=== PATIENT | male | born 1955 | race Caucasian/White ===

== ENCOUNTER 2016-06-25 15:23 | Emergency (ER) | payer OTHER ==
[2016-06-25 15:42] VITALS: TEMP 98.7
[2016-06-25] MEDS ORDERED: hydrALAZINE HCL 20 MG/ML 1 ML VIAL IVP STA (15:52)
--- NOTE | 2016-06-25 15:57 | ED ---
General Adult HPI - General Chief complaint: Recheck/Abnormal Lab/Rx Stated complaint: IHS/Poss HBP Time Seen by Provider: 06/25/16 15:44 Source: patient, RN notes reviewed Mode of arrival: ambulatory Limitations: no limitations - History of Present Illness Initial comments: Chief complaint and history of present illness a 60-year-old male who was sent here by the clinic doctor because of elevated blood pressure. The patient was being seen for left inguinal hernia which is been developed over the past week. Is also noted the patient's blood pressure was elevated upon arrival was 2 05/2008. Patient denies ever having had blood pressure problems before denies having significant symptoms. When pressed he said maybe a little nauseated today but he thought that was due to the discomfort of the developing left inguinal hernia. - Related Data Previous Rx's Medication Instructions Recorded Lisinopril [Zestril] 10 mg PO DAILY #75 tab 06/25/16 Allergies Allergy/AdvReac Type Severity Reaction Status Date / Time No Known Allergies Allergy Verified 06/25/16 16:03 Review of Systems ROS Statement: Those systems with pertinent positive or pertinent negative responses have been documented in the HPI. Review of systems. No visual acuity changes or headache no scalp tightness. No neck ache no chest pain no palpitations no shortness of breath no abdominal pain no flank pain. No neuro deficits. All systems are reviewed. Past medical problems none noted. Surgeries right inguinal hernia repair. Family history no cancer. Patient denies ALLERGIES. He does smoke strongly encouraged stop he does drink 5-6 beers per day. ROS Other: All systems not noted in ROS Statement are negative. Past Medical History Past Medical History: No Reported History Additional Past Medical History / Comment(s): Vision impairment (R) eye. History of Any Multi-Drug Resistant Organisms: None Reported Past Surgical History: Hernia Repair Past Psychological History: No Psychological Hx Reported Smoking Status: Current every day smoker Past Alcohol Use History: Daily Past Drug Use History: None Reported General Exam - General Exam Comments Initial Comments: General: The patient is awake and alert, in no distress, and does not appear acutely ill. Here because of elevated blood pressure. Vital signs show temp 98.7 pulse 105 respiratory rate on chart 97 count it at bedside 18. blood pressure 218/109. Pulse ox 96% room air Eye: Pupils are equal, round and reactive to light, extra-ocular movements are intact ; there is normal conjunctiva bilaterally. No signs of icterus. Patient does have arcus senilis Ears, nose, mouth and throat: There are moist mucous membranes and no oral lesions. Generally poor dentition. Neck: The neck is supple, there is no tenderness , no anterior cervical lymphadenopathy. Cardiovascular: And tachycardic heart rate on admission 105.. No murmur, rub or gallop is appreciated. No complaint of pain or palpitations. Respiratory: Lungs are clear to auscultation, respirations are non-labored, breath sounds are equal. No wheezes, stridor, rales, or rhonchi. Gastrointestinal: Soft, non-distended, non-tender abdomen without masses or organomegaly noted. There is no rebound or guarding present. No CVA tenderness. No nausea no vomiting no diarrhea. Left lower quadrant discomfort left inguinal hernia diagnosed in the clinic. Patient is being referred on to general surgery. Back: There is no tenderness to palpation in the midline. There is no obvious deformity. No rashes noted. Musculoskeletal: Normal ROM, no tenderness, There is no pedal edema. There is no calf tenderness or swelling. Sensation intact. Pulses equal bilaterally 2+. Neurological: CN II-XII intact, There are no obvious motor or sensory deficits. Coordination appears grossly intact. Speech is normal. No focal or lateralizing findings. No balance problems. Skin: Skin is warm and dry and no rashes or lesions are noted. Limitations: no limitations Course Vital Signs 06/25/16 06/25/16 06/25/16 15:35 15:47 16:30 Temperature 98.7 F Pulse Rate 105 H Respiratory 97 H Rate Blood Pressure 211/109 219/117 172/79 O2 Sat by Pulse 96 Oximetry 06/25/16 16:50 Temperature Pulse Rate 96 Respiratory 18 Rate Blood Pressure 157/70 O2 Sat by Pulse 97 Oximetry Medical Decision Making - Medical Decision Making Medical decision making; patient's elevated blood pressure was treated with hydralazine 20 mg IV push. Blood pressure checks and rechecks were done consistently came down every 10 minutes. At this time the patient's blood pressures proximal 150/80. The patient will be placed on lisinopril 10 mg one per day. Advised to follow-up with the family physician is being referred to today. He was advised that he may well need another medication or more the same medication. Advised to return emergency room if is any symptoms. We did discuss the risks of high blood pressure. Disposition Clinical Impression: Hypertension Disposition: HOME SELF-CARE Condition: Fair Instructions: Hypertension (ED) Additional Instructions: Take lisinopril 10 mg one per day. Get blood pressure rechecked several times this week. Follow-up with Dr. Trinidad in the next 1-2 weeks. Return emergency room as needed Prescriptions: Lisinopril [Zestril] 10 mg PO DAILY #75 tab Referrals: None,Stated [Primary Care Provider] - 1-2 days Teo Trinidad MD [REFERRING] - 1-2 days Time of Disposition: 16:55
[2016-06-25] MEDS ORDERED: SODIUM CHLORIDE 0.9% 1,000 ML IV SCH (16:00)
[2016-06-25 16:51] VITALS: RESP 18
[2016-06-25] MEDS ORDERED: LORazepam 2 MG/ML SYRINGE IV STA (17:10)
[2016-06-25 17:22] LABS: Basophils % (A) 0 %; CHCM 32.2; Eosinophils # (A) 0.1 k/uL (0-0.7); Eosinophils % (A) 1 %; HCT 50.1 % (39.0-53.0); HGB 15.2 gm/dL (13.0-17.5); Luc % (Auto) 1; Lymphocytes # (A) 1.8 k/uL (1.0-4.8); Lymphocytes % (A) 22 %; MCH 27.5 pg (25.0-35.0); MCHC 30.3 g/dL (31.0-37.0); MCV 90.7 fL (80.0-100.0); Mean Platelet Volume 7.4; Monocytes # (A) 0.5 k/uL (0-1.0); Monocytes % (A) 6 %; Neutrophils # (A) 5.6 k/uL (1.3-7.7); Neutrophils % (A) 69 %; RBC 5.53 m/uL (4.30-5.90); RDW 13.7 % (11.5-15.5); WBC 8.1 k/uL (3.8-10.6); WBC (Perox) 7.79
[2016-06-25 17:32] LABS: ALT 39 U/L (21-72); AST 30 U/L (17-59); Alkaline Phosphatase 94 U/L (38-126); Anion Gap 13 mmol/L; Blood Urea Nitrogen 14 mg/dL (9-20); Calcium 9.9 mg/dL (8.4-10.2); Carbon Dioxide 25 mmol/L (22-30); Chloride 104 mmol/L (98-107); Glucose 97 mg/dL (74-99); Non-African American GFR(MDRD) >60 (>60 ml/min/1.73 sqM); Potassium 4.5 mmol/L (3.5-5.1); Sodium 142 mmol/L (137-145); Total Bilirubin 0.7 mg/dL (0.2-1.3); Total Protein 8.2 g/dL (6.3-8.2)
[2016-06-25 17:35] LABS: Creatine Kinase 82 U/L (55-170)
[2016-06-25 17:48] LABS: Creatine Kinase MB 1.1 ng/mL (0.0-2.4); Troponin I <0.012 ng/mL (0.000-0.034)
[2016-06-25] MEDS ORDERED: ENALAPRILAT 1.25 MG/ML 1 ML VIAL IVP STA (18:27)
[2016-06-25 19:00] VITALS: BP 164/77; PULSE 94
== END 2016-06-25 20:19 | disposition home or self-care (01) ==
LOC: EC 15:23
DX: I10 Essential (primary) hypertension (principal); F17.200 Nicotine dependence, unspecified, uncomplicated
CPT/HCPCS: 36415; 80053; 82550; 82553; 84484; 85025; 96374; 96375; 99283; J2060; J0360; 93005

== ENCOUNTER 2016-10-01 13:48 | Inpatient (IN) | payer BC ==
[2016-10-01] MEDS ORDERED: NITROGLYCERIN OINT 1 INCH/GM PACKET TOPICAL STA (14:05)
[2016-10-01] MEDS ORDERED: ASPIRIN 81 MG CHEW PO STA (14:05)
[2016-10-01] MEDS ORDERED: IPRATROPIUM-ALBUTEROL 3 ML NEB INHALATION STA (14:08)
[2016-10-01 14:26] LABS: Basophils % (A) 0 %; CH 28.5; Eosinophils # (A) 0.3 k/uL (0-0.7); Eosinophils % (A) 3 %; HCT 41.6 % (39.0-53.0); HDW 2.37; HGB 13.1 gm/dL (13.0-17.5); Luc # (Auto) 0.22; Luc % (Auto) 2; Lymphocytes # (A) 1.9 k/uL (1.0-4.8); Lymphocytes % (A) 17 %; MCH 28.2 pg (25.0-35.0); MCHC 31.5 g/dL (31.0-37.0); MCV 89.6 fL (80.0-100.0); Mean Platelet Volume 6.2; Monocytes # (A) 0.8 k/uL (0-1.0); Monocytes % (A) 7 %; Neutrophils # (A) 8.3 k/uL (1.3-7.7); Neutrophils % (A) 72 %; RBC 4.65 m/uL (4.30-5.90); RDW 13.7 % (11.5-15.5); WBC 11.6 k/uL (3.8-10.6); WBC (Perox) 11.45
[2016-10-01 14:34] LABS: ALT 23 U/L (21-72); AST 20 U/L (17-59); Alkaline Phosphatase 92 U/L (38-126); Amylase 85 U/L (30-110); Anion Gap 9 mmol/L; Blood Urea Nitrogen 23 mg/dL (9-20); Calcium 9.3 mg/dL (8.4-10.2); Carbon Dioxide 24 mmol/L (22-30); Chloride 107 mmol/L (98-107); Glucose 105 mg/dL (74-99); Magnesium 2.3 mg/dL (1.6-2.3); Non-African American GFR(MDRD) >60 (>60 ml/min/1.73 sqM); Potassium 4.6 mmol/L (3.5-5.1); Sodium 140 mmol/L (137-145); Total Bilirubin 0.3 mg/dL (0.2-1.3); Total Protein 6.7 g/dL (6.3-8.2)
[2016-10-01 14:37] LABS: INR 0.9 (<1.1); Partial Thromboplastin Time 25.5 sec (22.0-30.0); Prothrombin Time 9.6 sec (9.0-12.0)
[2016-10-01 14:51] LABS: Creatine Kinase 26 U/L (55-170)
--- NOTE | 2016-10-01 14:52 | ED ---
Chest Pain HPI - General Chief Complaint: Chest Pain Stated Complaint: Chest Pain Time Seen by Provider: 10/01/16 13:54 Source: patient, family, RN notes reviewed, old records reviewed Mode of arrival: wheelchair Limitations: no limitations - History of Present Illness Initial Comments: This is a 60-year-old male who presents with complaints of sharp left-sided chest pain it sometimes goes to his left arm shortness of breath dyspnea somewhat better with rest he also states he hasn't fevers chills sweats occasional cough but no definite phlegm production. Of note he did have a left herniorrhaphy done on September 22. He denies any leg edema or pain other than occasionally the pain in his left chest seems to radiate down to his left leg. States the pain right now is very mild is no worse than moderate. He is a smoker but denies any history of lung disease or heart disease he states he did have a recent full workup before the hernia surgeries including echocardiogram and stress test which apparently turned out fine. No other complaints at this time MD Complaint: chest pain, other - Related Data Home Medications Medication Instructions Recorded Confirmed Aspirin 325 mg PO ONCE PRN 10/01/16 10/01/16 amLODIPine BESYLATE/BENAZEPRIL 1 cap PO BID 10/01/16 10/01/16 [Lotrel 5-20 mg Capsule] Allergies Allergy/AdvReac Type Severity Reaction Status Date / Time No Known Allergies Allergy Verified 10/01/16 14:15 Review of Systems ROS Statement: Those systems with pertinent positive or pertinent negative responses have been documented in the HPI. ROS Other: All systems not noted in ROS Statement are negative. EKG Findings - EKG Results: EKG: interpreted by FREDERIC, sinus rhythm (Heart rate 114 WA interval 136 QRS duration 94 daily since QTC of 332/457 possible left atrial enlargement no acute ST-T wave changes) Past Medical History Past Medical History: No Reported History Additional Past Medical History / Comment(s): Vision impairment (R) eye. History of Any Multi-Drug Resistant Organisms: None Reported Past Surgical History: Hernia Repair Past Psychological History: No Psychological Hx Reported Smoking Status: Current every day smoker Past Alcohol Use History: Daily Past Drug Use History: None Reported General Exam - General Exam Comments Initial Comments: Is a well-developed well-nourished awake alert oriented x3 male Limitations: no limitations General appearance: alert, in no apparent distress Head exam: Present: atraumatic, normocephalic, normal inspection Eye exam: Present: normal appearance, PERRL, EOMI. Absent: scleral icterus, conjunctival injection, periorbital swelling ENT exam: Present: normal exam, mucous membranes moist Neck exam: Present: normal inspection. Absent: tenderness, meningismus, lymphadenopathy Respiratory exam: Present: wheezes, chest wall tenderness, decreased breath sounds. Absent: respiratory distress, rales, rhonchi, stridor Cardiovascular Exam: Present: normal rhythm, tachycardia, normal heart sounds. Absent: systolic murmur, diastolic murmur, rubs, gallop, clicks GI/Abdominal exam: Present: soft, normal bowel sounds. Absent: distended, tenderness, guarding, rebound, rigid Extremities exam: Present: normal inspection, full ROM, normal capillary refill. Absent: tenderness, pedal edema, joint swelling, calf tenderness Back exam: Present: normal inspection Neurological exam: Present: alert, oriented X3, CN II-XII intact Psychiatric exam: Present: normal affect, normal mood Skin exam: Present: warm, dry, intact, normal color. Absent: rash Course Vital Signs 10/01/16 10/01/16 10/01/16 14:04 14:27 14:37 Temperature 97.9 F Pulse Rate 113 H 104 H 107 H Respiratory 18 Rate Blood Pressure 155/73 O2 Sat by Pulse Oximetry 10/01/16 10/01/16 14:41 15:18 Temperature Pulse Rate 100 93 Respiratory 16 18 Rate Blood Pressure 146/95 118/69 O2 Sat by Pulse 96 98 Oximetry - Reevaluation(s) Reevaluation #1: 10/01/16 16:17 Patient did get some relief but he is still having left-sided chest pain. CAT scan results were pending he did demonstrate elevated d-dimer. Reevaluation #2: 10/01/16 16:19 I did discuss findings with patient and his . Patient be admitted he does have pulmonary embolism with prominent mediastinal lymph nodes. I did discuss case with Dr. Hameed. Pulmonary medicine will be consulted. 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 Critical Care Time Critical Care Time: Yes Critical Care Time: 36 minutes of critical care time which includes initial monitoring of the patient with history physical lab and x-rays reevaluation the patient response to therapy. Discussion with the patient and family members regarding the findings. Discussion with the admitting physician and admission orders and documentation the above. Disposition Clinical Impression: Pulmonary embolism on left, Atypical chest pain, Acute bronchospasm Disposition: ADMITTED IP TO THIS HOSP Condition: Stable
[2016-10-01 15:03] LABS: Creatine Kinase MB 0.5 ng/mL (0.0-2.4); Troponin I <0.012 ng/mL (0.000-0.034)
[2016-10-01] MEDS ORDERED: RX INFO: IV CONTRAST WAS GIVEN 1 EACH MISC MISCELLANE PRN (15:19)
--- NOTE | 2016-10-01 15:23 | XR ---
EXAMINATION TYPE: XR chest 2V DATE OF EXAM: 10/01/2016 3:14 PM COMPARISON: NONE HISTORY: Chest pain and shortness of breath TECHNIQUE: Frontal and lateral views of the chest are obtained. FINDINGS: There is slight blunting of left costophrenic angle. There is no gross heart failure. Hear t size is normal. Mediastinum is normal. There are chest leads. IMPRESSION: There is mild infiltrate and pleural reaction at the left lung base. Normal heart. No gr oss heart failure.
--- NOTE | 2016-10-01 16:04 | CT ---
EXAMINATION TYPE: CT chest angio for PE DATE OF EXAM: 10/01/2016 3:52 PM COMPARISON: NONE HISTORY: chest pain, sob CT DLP: 149.5 mGycm Automated exposure control for dose reduction was used. CONTRAST: CT Chest for pulmonary embolism performed with with IV Contrast, patient injected with 100 mL of Omni paque 350. There are 3-D post processed images. FINDINGS: There is diffuse pulmonary emphysema. There is no evidence of a pulmonary mass. There is small left p leural effusion and infiltrate and atelectasis at the left lung base. There similar mild infiltrate a nd atelectasis at the right lung base. There is no pericardial effusion. There are no hilar masses. T here is evidence of filling defect in the left lower lobe pulmonary artery lateral basal segment bran ch. There are a few mediastinal lymph nodes that measure up to almost 2 cm. There is no evidence of a ortic aneurysm or dissection. IMPRESSION: There is evidence of left lower lobe pulmonary embolism. Patchy infiltrate and atelectasis at the lung bases and worse on the left side. Small left pleural ef fusion. Mild mediastinal adenopathy. This exam was discussed with Dr. Ayala at 4:00 PM.
[2016-10-01] MEDS ORDERED: HEPARIN SODIUM,PORCINE 5,000 UNIT/ML 1 ML VIAL IV STA ×2 (16:09→16:17)
[2016-10-01] MEDS ORDERED: HYDROmorphone 1 MG/ML 1 ML SYRINGE IVP STA (16:09)
[2016-10-01] MEDS ORDERED: NALOXONE 0.4 MG/ML 1 ML VIAL IV PRN (16:20)
[2016-10-01] MEDS ORDERED: ASPIRIN 325 MG TAB PO PRN (16:24)
[2016-10-01] MEDS: HEPARIN SODIUM,PORCINE/D5W PMX 25,000 UNIT in DEXTROSE/WATER 1 500ML.BAG IV SCH (16:33)
[2016-10-01] MEDS: SODIUM CHLORIDE 0.9% 1,000 ML IV SCH (16:36)
[2016-10-01] MEDS ORDERED: MORPHINE SULFATE 4 MG/ML SYRINGE IVP STA (17:41)
[2016-10-01] MEDS: HYDROmorphone 1 MG/ML 1 ML SYRINGE IV PRN ×2 (19:59→23:27)
[2016-10-01] MEDS: amLODIPine 5 MG TAB PO SCH (20:00)
[2016-10-01 20:21] VITALS: BMI 21.2
[2016-10-01] MEDS: IPRATROPIUM-ALBUTEROL 3 ML NEB INHALATION SCH (21:49)
[2016-10-01] MEDS ORDERED: LORazepam 1 MG TAB PO PRN (22:57)
[2016-10-01] MEDS ORDERED: TEMAZEPAM 15 MG CAP PO PRN (22:58)
[2016-10-01] MEDS: ALPRAZolam 0.25 MG TAB PO PRN (23:27)
[2016-10-02] MEDS: IPRATROPIUM-ALBUTEROL 3 ML NEB INHALATION SCH ×7 (03:30→23:01)
[2016-10-02] MEDS: HYDROmorphone 1 MG/ML 1 ML SYRINGE IV PRN ×3 (03:42→12:52)
[2016-10-02 06:17] LABS: Basophils % (A) 0 %; CH 28.2; CHCM 31.7; Eosinophils # (A) 0.2 k/uL (0-0.7); Eosinophils % (A) 2 %; HCT 35.3 % (39.0-53.0); HDW 2.42; HGB 11.1 gm/dL (13.0-17.5); Luc # (Auto) 0.15; Luc % (Auto) 1; Lymphocytes # (A) 1.3 k/uL (1.0-4.8); Lymphocytes % (A) 12 %; MCH 28.1 pg (25.0-35.0); MCHC 31.4 g/dL (31.0-37.0); MCV 89.4 fL (80.0-100.0); Mean Platelet Volume 6.9; Monocytes # (A) 0.8 k/uL (0-1.0); Monocytes % (A) 8 %; Neutrophils # (A) 8.1 k/uL (1.3-7.7); Neutrophils % (A) 77 %; RBC 3.95 m/uL (4.30-5.90); RDW 13.7 % (11.5-15.5); WBC 10.5 k/uL (3.8-10.6); WBC (Perox) 10.86
[2016-10-02] MEDS: SODIUM CHLORIDE 0.9% 1,000 ML IV SCH ×2 (06:24→17:43)
[2016-10-02 06:28] LABS: Anion Gap 7 mmol/L; Blood Urea Nitrogen 16 mg/dL (9-20); Calcium 8.7 mg/dL (8.4-10.2); Carbon Dioxide 22 mmol/L (22-30); Chloride 106 mmol/L (98-107); Glucose 93 mg/dL (74-99); Non-African American GFR(MDRD) >60 (>60 ml/min/1.73 sqM); Potassium 4.5 mmol/L (3.5-5.1); Sodium 135 mmol/L (137-145)
[2016-10-02] MEDS: LISINOPRIL 20 MG TAB PO SCH (09:10)
[2016-10-02] MEDS: amLODIPine 5 MG TAB PO SCH ×2 (09:11→21:50)
[2016-10-02] MEDS: NICOTINE 21MG/24HR PATCH TRANSDERM SCH (09:11)
[2016-10-02] MEDS: ALPRAZolam 0.25 MG TAB PO PRN ×2 (09:20→17:44)
[2016-10-02] MEDS: HYDROcodone/APAP 5-325MG 1 EACH TAB PO PRN ×3 (09:20→22:46)
--- NOTE | 2016-10-02 11:50 | US ---
EXAMINATION TYPE: US venous doppler duplex LE DATE OF EXAM: 10/02/2016 10:41 AM COMPARISON: NONE CLINICAL HISTORY: 60-year-old male rule out DVT. SIDE PERFORMED: Bilateral TECHNIQUE: The lower extremity deep venous system is examined utilizing real time linear array sonog frieda with graded compression, doppler sonography and color-flow sonography. FINDINGS: VESSELS IMAGED: External Iliac Vein (EIV) Common Femoral Vein Deep Femoral Vein Greater Saphenous Vein * Femoral Vein Popliteal Vein Small Saphenous Vein * Proximal Calf Veins (* superficial vessels) Right Leg: Negative for DVT Left Leg: Negative for DVT. However, at the CFV/GSV junction there is thrombus in the GSV without ap preciable flow here. IMPRESSION: 1. No evidence for DVT within the bilateral lower extremities imaged from the groin to the upper calv es. 2. However, the exam is positive for SVT in the upper left greater saphenous vein near its junction w ith the common femoral vein.
[2016-10-02] MEDS: HEPARIN SODIUM,PORCINE/D5W PMX 25,000 UNIT in DEXTROSE/WATER 1 500ML.BAG IV SCH (12:48)
[2016-10-02] MEDS: MULTIVITAMINS, THERA 1 EACH TAB PO SCH (12:50)
--- NOTE | 2016-10-02 13:36 | HP ---
DATE OF ADMISSION: CHIEF COMPLAINT: Shortness of breath as well as left-sided chest pain. HISTORY OF PRESENT ILLNESS: This 60-year-old gentleman with past medical history of hypertension, history of deep venous thrombosis, history of nicotine dependence, being followed Dr. Trinidad in the outpatient setting has significant history of EtOH also. The patient apparently had a recent hernia surgery on 23 and [place] as outpatient about a week ago. Currently the patient is complaining of shortness of breath of 2 days duration with left side chest pain, which increases with respirations, but not completely relieved in between. The patient came to [facility] and admitted for further evaluation and treatment. Further evaluation showed WBC 11.9, d-dimer was elevated to 2.61 and the patient also had CTA done, which showed left lower lobe, pulmonary embolism. Patient admitted for further evaluation and treatment. There is no history of fever, rigors. No history of headache, loss of consciousness or seizures. PAST MEDICAL HISTORY: History of hypertension, history of degenerative joint disease, history of nicotine dependence. Medications prior to admission include: 1. Norvasc. 2. Lotrel 5/20 p.o. b.i.d. 3. Aspirin 325 mg p.r.n. ALLERGIES: None. FAMILY HISTORY: History of extensive history of DVT in both parent, both brothers, and sisters and close relatives. Also history of myocardial infarction in the family. 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 REVIEW OF SYSTEMS: ENT: Diminished hearing, diminished vision. CARDIOVASCULAR: As mentioned earlier. RESPIRATORY: As mentioned earlier. GI: No nausea. : No dysuria. NERVOUS SYSTEM: No numbness or weakness. ALLERGY/IMMUNOLOGY: No asthma or hayfever. MUSCULOSKELETAL: As mentioned earlier. HEMATOLOGY: As mentioned earlier. ENDOCRINE: No history of diabetes or hypothyroidism. CONSTITUTIONAL: As mentioned earlier. DERMATOLOGY: Negative. RHEUMATOLOGY: Negative. PSYCHIATRY: As mentioned earlier. PHYSICAL EXAMINATION: Patient is alert and oriented x3. Pulse 96, blood pressure 140/75, respirations 17, temperature 97.3, pulse ox 97% on room air. HEENT: Conjunctivae normal. Oral mucosa moist. NECK: No jugular venous distention. No carotid bruit. No lymph node enlargement. CARDIOVASCULAR SYSTEM: S1, S2 muffled. No S3, no S4. RESPIRATORY: Breath sounds diminished at the bases. A few rhonchi, no crackles. ABDOMEN: Soft, nontender. No mass palpable. LEGS: No edema. No swelling. NERVOUS SYSTEM: Higher function as mentioned. Moves all four limbs. No foal motor deficits. LYMPHATIC: No lymphadenopathy in the neck, axillae or groin. SKIN: No ulcer, rash or bleeding. LABS: WBC 11.6, d-dimer is 2.61. Creatine kinase 26. ASSESSMENT: 1. Shortness of breath with acute pulmonary embolus left lower lobe with pleurisy. 2. Possible chronic bronchitis. 3. Increased WBC. 4. History of nicotine dependence. 5. History of hypertension essential. 6. History of deep venous thrombosis of the right leg. 7. History of recent hernia repair. 8. History of vision impairment of the right eye. RECOMMENDATIONS AND DISCUSSION: In this 60-year-old gentleman who presented with multiple complex medical issues, will monitor the patient closely. Continue the current medications. Continue symptomatic treatment. Otherwise resume the home medications. IV heparin and bronchodilators. Otherwise, also get hematology/oncology evaluation for further work-up. Otherwise, continue to monitor. Progress guarded. Resume the home medication. Further recommendations to follow. Copy of dictation forwarded to Dr. Trinidad, who is the primary physician.
[2016-10-02 13:56] LABS: Appearance,Urine Clear (Clear); Bilirubin,Urine Negative (Negative); Glucose,Urine (UA) Negative (Negative); Ketones,Urine Negative (Negative); Leukocyte Esterase,Urine Negative (Negative); Nitrite,Urine Negative (Negative); PH, Urine 5.5 (5.0-8.0); Protein,Urine Negative (Negative); Specific Gravity,Urine 1.003 (1.001-1.035); UA Billing (MACRO vs. MICRO) CHEM; Urobilinogen,Urine <2.0 mg/dL (<2.0)
--- NOTE | 2016-10-02 16:14 | P.CNPUL ---
History of Present Illness Consult date: 10/02/16 Reason for consult: pulmonary embolism History of present illness: This is a 60-year-old male patient underwent a left inguinal hernia repair on at [facility]. The patient was discharged home postop and yesterday the patient woke up having pain in his left chest. The pain was pleuritic in nature and it came severe to the point where the patient was unable to breathe nor take any deep breathing. Based on that, a CT angios the chest was done and the patient was found to have a left lower lobe pulmonary artery filling defect consistent with an pulmonary embolism. The patient was started on IV heparin. Patient also reports that approximately 5 years ago he had an unprovoked DVT of the right lower extremity. He took Coumadin for a short period of time and then he quits. He did not have any recurrence since then. No history of DVT or pulmonary embolism and the family. As an extensive coronary artery disease including his father, mother and brother. The patient currently is on IV heparin. No hemoptysis. He is taken adequate pain control. His given a incentive spirometer. He is hemodynamically stable. The Doppler of the lower extremity showed no evidence of DVT. There was however superficial vein almost cyst in the upper left greater saphenous vein near the junction with the common femoral vein. Review of Systems All systems: negative Constitutional: Denies chills, Denies fever Eyes: denies blurred vision, denies pain Ears, nose, mouth and throat: Denies headache, Denies sore throat Cardiovascular: Denies chest pain, Denies shortness of breath Respiratory: Reports dyspnea, Reports pleurisy, Denies cough Gastrointestinal: Denies abdominal pain, Denies diarrhea, Denies nausea, Denies vomiting Musculoskeletal: Denies myalgias Integumentary: Denies pruritus, Denies rash Neurological: Denies numbness, Denies weakness Psychiatric: Denies anxiety, Denies depression Endocrine: Denies fatigue, Denies weight change Past Medical History Past Medical History: Hypertension Additional Past Medical History / Comment(s): Vision impairment (R) eye, hernia repair-left inguinal on 09/22/2016, DVT in the LE 5 years ago, alcoholism, HTN, COPD History of Any Multi-Drug Resistant Organisms: None Reported Past Surgical History: Hernia Repair Past Psychological History: No Psychological Hx Reported Smoking Status: Former smoker Past Alcohol Use History: Daily Past Drug Use History: None Reported - Past Family History Mother Family Medical History: Myocardial Infarction ([place]) Father Family Medical History: Hypertension Medications and Allergies Home Medications Medication Instructions Recorded Confirmed Type Aspirin 325 mg PO ONCE PRN 10/01/16 10/01/16 History amLODIPine BESYLATE/BENAZEPRIL 1 cap PO BID 10/01/16 10/01/16 History [Lotrel 5-20 mg Capsule] Allergies Allergy/AdvReac Type Severity Reaction Status Date / Time No Known Allergies Allergy Verified 10/01/16 14:15 Physical Exam Vitals: Vital Signs Temp Pulse Pulse Pulse Resp BP BP 10/02/16 11:47 98 10/02/16 11:37 100 20 10/02/16 08:00 96.4 F L 92 149/75 10/02/16 04:00 97.6 F 114 H 20 168/77 10/02/16 00:00 97.1 F L 104 H 16 133/75 10/01/16 21:59 104 H 10/01/16 21:51 100 10/01/16 20:00 97.3 F L 96 17 148/75 10/01/16 18:45 97.9 F 104 H 20 118/62 10/01/16 17:42 98.6 F 93 18 138/77 10/01/16 16:56 98.0 F 97 98 H 143/93 10/01/16 16:36 99.6 F 107 H 18 125/74 Pulse Ox 10/02/16 11:47 10/02/16 11:37 10/02/16 08:00 94 L 10/02/16 04:00 92 L 10/02/16 00:00 94 L 10/01/16 21:59 10/01/16 21:51 94 L 10/01/16 20:00 97 10/01/16 18:45 96 10/01/16 17:42 96 10/01/16 16:56 98 10/01/16 16:36 94 L Intake and Output 10/01/16 10/02/16 10/02/16 22:59 06:59 14:59 Intake Total 374.017 180 Output Total 625 309 3865 Balance -700 -275.983 -1320 Intake: Intake, IV Titration 374.017 Amount Heparin Sodium,Porcine/ 374.017 D5w Pmx 25,000 unit In Dextrose/Water 1 500ml. bag @ 18 UNITS/KG/HR 26. 94 mls/hr IV .[id number] [facility] Rx#:[id number] Oral 180 Output: Urine 205 203 2561 Other: Voiding Method Toilet Toilet Urinal Urinal # Voids 1 1 Weight 61.4 kg 62 kg The patient appeared well nourished and normally developed. Vital signs as documented. Head exam is unremarkable. No scleral icterus or corneal arcus noted. Neck is without jugular venous distension, thyromegaly, or carotid bruits. Carotid upstrokes are brisk bilaterally. Lungs sounds are diminished in the left lung base and the patient is unable to take a deep breath due to severe pleuritic chest pain.. Cardiac exam reveals the PMI to be normally sized and situated. Rhythm is regular. First and second heart sounds normal. No murmurs, rubs or gallops. Abdominal exam reveals normal bowel sounds, no masses , no organomegaly and no aortic enlargement. The patient had a left inguinal hernia that was repaired in the surgical wound site is dry clean and intact. Extremities are nonedematous and both femoral and pedal pulses are normal. Results - Laboratory Findings CBC and BMP: 10/02/16 05:24 10/02/16 05:24 PT/INR, D-dimer PT 9.6 sec (9.0-12.0) 10/01/16 14:10 INR 0.9 (<1.1) 10/01/16 14:10 D-Dimer 2.61 mg/L FEU (<0.60) H 10/01/16 14:10 Abnormal lab findings: Abnormal Labs 10/01/16 10/02/16 10/02/16 23:00 05:24 05:24 RBC 3.95 L Hgb 11.1 L Hct 35.3 L Neutrophils # 8.1 H APTT 57.9 H Sodium 135 L 10/02/16 05:24 RBC Hgb Hct Neutrophils # APTT 51.7 H Sodium - Diagnostic Findings Chest x-ray: image reviewed CT scan - chest: image reviewed Assessment and Plan Plan: Assessment 1 acute pulmonary embolism involving the left lower lobe pulmonary artery branch with secondary severe pleuritic chest pain and shortness of breath, this is likely a provoked event following a inguinal hernia repair 2 superficial vein thrombosis involving lower extremity 3 remote history of DVT approximately 5 years ago, unprovoked 4 recent left inguinal hernia repair 5 hypertension 6 smoker 7 alcohol drinker 8 osteoarthritis Plan Will continue the patient on IV heparin. We'll assess and the patient is approved for lung tumor anticoagulation with oral agent such as Eliquis. If so , we'll start the treatment on 10 mg by mouth twice a day for one week and then drop the dose to 5 mg by mouth twice a day. Provide incentive spirometer. Provide adequate pain control with Calvert 5. Nicotine patch. Early mobility. We'll continue to follow.
--- NOTE | 2016-10-02 21:01 | P.CONS ---
History of Present Illness - Reason for Consult Consult date: 10/02/16 PE history Requesting physician: Chasidy Lambert - Chief Complaint pleuritic chest pain - History of Present Illness Mr. 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 Patient believes he was on Coumadin for about 6 months and denied any complications of bleeding while on Coumadin. Patient is now freshly postoperative about one week ago for a left inguinal hernia repair. Patient states that he began having pleuritic type chest pain on the left side especially over the last day or so. Patient denied any swelling in either extremity but he did have some penile swelling that lasted for about 3 days a few days after the surgery, he states that this has completely subsided, he denies any penile pain or scrotal edema at this time. Patient denies any recent travel, hormone use, patient is a current smoker about 1 pack per day, denies any history of diabetes, he is treated for hyperlipidemia and hypertension. Patient also states a strong family history of blood clots, and his mother, father and a brother. Patient does have children. Review of Systems All systems: negative Constitutional: Reports as per HPI Past Medical History Past Medical History: Deep Vein Thrombosis (DVT), Hypertension Additional Past Medical History / Comment(s): Vision impairment (R) eye, hernia repair-left inguinal on 09/22/2016, DVT in the LE 5 years ago, alcoholism, HTN, COPD History of Any Multi-Drug Resistant Organisms: None Reported Past Surgical History: Hernia Repair Additional Past Surgical History / Comment(s): hernia repair-left inguinal on 09/22/2016, DVT in the LE 5 years ago, alcoholism, HTN, COPD Past Psychological History: No Psychological Hx Reported Smoking Status: Former smoker Past Alcohol Use History: Daily Past Drug Use History: None Reported - Past Family History Mother Family Medical History: Myocardial Infarction ([place]) Father Family Medical History: Hypertension Medications and Allergies Home Medications Medication Instructions Recorded Confirmed Type Aspirin 325 mg PO ONCE PRN 10/01/16 10/01/16 History amLODIPine BESYLATE/BENAZEPRIL 1 cap PO BID 10/01/16 10/01/16 History [Lotrel 5-20 mg Capsule] Allergies Allergy/AdvReac Type Severity Reaction Status Date / Time No Known Allergies Allergy Verified 10/01/16 14:15 Physical Exam Vitals: Vital Signs Temp Pulse Pulse Resp BP Pulse Ox 10/02/16 19:05 109 H 14 10/02/16 18:56 109 H 14 94 L 10/02/16 16:00 119 H 140/81 93 L 10/02/16 15:18 96 10/02/16 15:07 92 10/02/16 12:00 95 127/73 92 L 10/02/16 11:47 98 10/02/16 11:37 100 20 10/02/16 08:00 96.4 F L 92 149/75 94 L 10/02/16 04:00 97.6 F 114 H 20 168/77 92 L 10/02/16 00:00 97.1 F L 104 H 16 133/75 94 L 10/01/16 21:59 104 H 10/01/16 21:51 100 94 L Intake and Output 10/02/16 10/02/16 10/02/16 06:59 14:59 22:59 Intake Total 374.017 447.596 5469 Output Total 650 2700 Balance -275.983 -2067.839 0426 Intake: Intake, IV Titration 374.017 125.983 800 Amount Heparin Sodium,Porcine/ 374.017 125.983 D5w Pmx 25,000 unit In Dextrose/Water 1 500ml. bag @ 18 UNITS/KG/HR 26. 94 mls/hr IV .[id number] NIA Rx#:[id number] Sodium Chloride 0.9% 1, 800 000 ml @ 80 mls/hr IV . [id number] NIA Rx#:[id number] Oral 660 600 Output: Urine 650 2700 Other: Voiding Method Toilet Urinal # Voids 1 Weight 62 kg - Constitutional General appearance: average body habitus, cooperative, no acute distress - EENT Eyes: anicteric sclerae, EOMI, PERRLA, normal appearance ENT: hearing grossly normal, normal oropharynx - Neck Neck: no lymphadenopathy - Respiratory Respiratory: bilateral: CTA (Inspiration diminished due to discomfort) - Cardiovascular Rhythm: regular Heart sounds: normal: S1, S2 Abnormal Heart Sounds: no systolic murmur, no diastolic murmur, no rub, no S3 Gallop, no S4 Gallop, no click, no other leg Peripheral Edema: bilateral: None - Gastrointestinal General gastrointestinal: no absent bowel sounds, no decreased bowel sounds, no distended, no hepatomegaly, no hyperactive bowel sounds, normal bowel sounds, no organomegaly, no rigid, no scaphoid, soft, no splenomegaly, no tenderness, no umbilical hernia, no ventral hernia - Integumentary Integumentary: normal - Neurologic Neurologic: CNII-XII intact - Musculoskeletal Musculoskeletal: strength equal bilaterally - Psychiatric Psychiatric: A&O x's 3, appropriate affect, intact judgment & insight Results CBC & Chem 7: 10/02/16 05:24 10/02/16 05:24 Labs: Abnormal Lab Results - Last 24 Hours (Table) 10/01/16 10/02/16 10/02/16 Range/Units 23:00 05:24 05:24 RBC 3.95 L (4.30-5.90) m/uL Hgb 11.1 L (13.0-17.5) gm/dL Hct 35.3 L (39.0-53.0) % Neutrophils # 8.1 H (1.3-7.7) k/uL APTT 57.9 H (22.0-30.0) sec Sodium 135 L (137-145) mmol/L 10/02/16 Range/Units 05:24 RBC (4.30-5.90) m/uL Hgb (13.0-17.5) gm/dL Hct (39.0-53.0) % Neutrophils # (1.3-7.7) k/uL APTT 51.7 H (22.0-30.0) sec Sodium (137-145) mmol/L CT scan - chest: report reviewed Venous US: report reviewed Assessment and Plan (1) Pulmonary embolism on left Narrative/Plan: Patient has been diagnosed with a left lower lobe PE. Patient is status post surgery, it does appear as though this would be a provoked PE. Patient has a history of an unprovoked DVT in the right lower extremity, below the knee about 5 years ago. Patient has a strong family history of blood clots. Case was discussed with Dr. Hernandez. Prescription for hypercoagulable workup will be provided to the patient with follow-up with Dr. Hernandez for about 3 weeks later for results. This does not liner roll changer of the patient's anticoagulation, agree with Leigh. Dr. Hernandez will make further recommendations regarding duration of anticoagulation once he has all the results of testing. Status: Acute Plan: It was strongly suggested to the patient that he get up-to-date on age-related cancer screenings including EGD, colonoscopy and prostate screening. Incidental findings of some 2cm lymph nodes were noted on CTA. We'll follow up in the a.m. with pulmonary for their recommendations for follow-up.
--- NOTE | 2016-10-02 22:00 | PN ---
DATE OF SERVICE: 10/02/2016 This 60-year-old gentleman who was admitted with shortness of breath and acute pulmonary embolism with left lower lobe with pleurisy, also had chronic bronchitis. The patient is on IV heparin. No chest pain. No palpitations. No fever. On examination, alert and oriented x2, pulse 92, blood pressure 104/75. Respiratory rate 20. Temperature 97.4. Pulse ox 94% on room air. HEENT: Conjunctivae normal. Oral mucosa moist. NECK: No jugular venous distention. No carotid bruit. No lymph node enlargement. CARDIOVASCULAR: S1, S2 muffled. RESPIRATORY: Breath sounds diminished at the bases. A few rhonchi. ABDOMEN: Soft, Nontender. CENTRAL NERVOUS SYSTEM: No focal deficits. LABS: WBC 10.4, hemoglobin 11.5, [id number]. UA noted. ASSESSMENT: 1. Shortness of breath with possible acute pulmonary embolism left lower lobe with pleurisy. 2. Possible chronic bronchitis. 3. Increased WBC. 5. History of hypertension, essential. 6. History of deep venous thrombosis of the right leg. 7. History of recent hernia repair. 8. History of vision impairment of the right eye. 9. Superficial venous thrombophlebitis of the left greater saphenous vein on the left leg. 10. FULL CODE. RECOMMENDATIONS AND DISCUSSION: In this 60-year-old gentleman who presented with multiple complex medical issues, we will monitor the patient closely. Continue the current medications. Continue symptomatic treatment. Otherwise, at this time, I would recommend continue with the current medications. Continue with IV heparin. Check if the patient qualifies for Xarelto. Ultrasound venous Doppler was done, which showed no evidence of deep venous thrombosis. Superficial thrombophlebitis in the left greater saphenous vein near the junction with the common femoral vein was noted. Continue the current medications. Continue symptomatic treatment. For Xarelto coverage,. Prognosis guarded. Further recommendations to follow. MTDD
[2016-10-03] MEDS: IPRATROPIUM-ALBUTEROL 3 ML NEB INHALATION SCH ×6 (02:30→20:38)
[2016-10-03] MEDS: HYDROcodone/APAP 5-325MG 1 EACH TAB PO PRN (05:37)
[2016-10-03] MEDS: HEPARIN SODIUM,PORCINE/D5W PMX 25,000 UNIT in DEXTROSE/WATER 1 500ML.BAG IV SCH (05:43)
[2016-10-03] MEDS: SODIUM CHLORIDE 0.9% 1,000 ML IV SCH ×2 (05:48→18:25)
[2016-10-03 06:46] LABS: Basophils % (A) 0 %; CH 28.3; CHCM 32.5; Eosinophils # (A) 0.2 k/uL (0-0.7); Eosinophils % (A) 3 %; HCT 35.5 % (39.0-53.0); HDW 2.52; HGB 11.2 gm/dL (13.0-17.5); Luc # (Auto) 0.13; Luc % (Auto) 2; Lymphocytes # (A) 1.4 k/uL (1.0-4.8); Lymphocytes % (A) 16 %; MCH 27.8 pg (25.0-35.0); MCHC 31.6 g/dL (31.0-37.0); MCV 87.9 fL (80.0-100.0); Mean Platelet Volume 6.2; Monocytes # (A) 0.7 k/uL (0-1.0); Monocytes % (A) 8 %; Neutrophils # (A) 6.4 k/uL (1.3-7.7); Neutrophils % (A) 72 %; RBC 4.03 m/uL (4.30-5.90); RDW 13.5 % (11.5-15.5); WBC 8.8 k/uL (3.8-10.6); WBC (Perox) 8.71
[2016-10-03 07:04] LABS: Blood Urea Nitrogen 12 mg/dL (9-20); Calcium 8.8 mg/dL (8.4-10.2); Carbon Dioxide 24 mmol/L (22-30); Chloride 108 mmol/L (98-107); Glucose 96 mg/dL (74-99); Non-African American GFR(MDRD) >60 (>60 ml/min/1.73 sqM); Potassium 4.4 mmol/L (3.5-5.1)
[2016-10-03 07:13] LABS: Anion Gap 4 mmol/L; Sodium 136 mmol/L (137-145)
[2016-10-03] MEDS: NICOTINE 21MG/24HR PATCH TRANSDERM SCH (07:55)
[2016-10-03] MEDS: LISINOPRIL 20 MG TAB PO SCH (07:55)
[2016-10-03] MEDS: amLODIPine 5 MG TAB PO SCH ×2 (07:55→21:48)
[2016-10-03] MEDS: HYDROmorphone 1 MG/ML 1 ML SYRINGE IV PRN (09:53)
[2016-10-03] MEDS ORDERED: KETOROLAC 30 MG/ML 1 ML VIAL IVP SCH ×2 (12:00)
--- NOTE | 2016-10-03 13:00 | P.PN ---
Subjective On 10/03/2016 the patient is feeling better. His further chest pain has somewhat subsided under the influence of Dilaudid and no cough. The patient IV heparin. The patient has been transitioned to Eliquis as he will be approved for this medication. No new complaints otherwise for now. No hemoptysis. No bleeding complications. Awaiting diet. No change in mental status. Objective - Vital Signs Vital signs: Vital Signs Temp 98.5 F 10/03/16 08:00 Pulse 88 10/03/16 08:35 Resp 18 10/03/16 08:00 BP 139/83 10/03/16 08:00 Pulse Ox 96 10/03/16 08:24 Intake & Output 10/02/16 10/03/16 10/03/16 18:59 06:59 18:59 Intake Total 2185.983 1735.735 281.757 Output Total 2700 700 Balance -871.967 2463.735 281.757 Weight 60.6 kg Intake: Intake, IV Titration 836.115 4111.735 41.757 Amount Heparin Sodium,Porcine/ 125.983 455.735 41.757 D5w Pmx 25,000 unit In Dextrose/Water 1 500ml. bag @ 18 UNITS/KG/HR 26. 94 mls/hr IV .[id number] [facility]I Rx#:[id number] Sodium Chloride 0.9% 1, 800 1280 000 ml @ 80 mls/hr IV . [id number] [facility] Rx#:[id number] Oral 1260 240 Output: Urine 2700 700 Other: Voiding Method Toilet Toilet Urinal Urinal # Voids 1 - Exam The patient appeared well nourished and normally developed. Vital signs as documented. Head exam is unremarkable. No scleral icterus or corneal arcus noted. Neck is without jugular venous distension, thyromegaly, or carotid bruits. Carotid upstrokes are brisk bilaterally. Lungs sounds are diminished in the left lung base and the patient is unable to take a deep breath due to severe pleuritic chest pain.. Cardiac exam reveals the PMI to be normally sized and situated. Rhythm is regular. First and second heart sounds normal. No murmurs, rubs or gallops. Abdominal exam reveals normal bowel sounds, no masses , no organomegaly and no aortic enlargement. The patient had a left inguinal hernia that was repaired in the surgical wound site is dry clean and intact. Extremities are nonedematous and both femoral and pedal pulses are normal. - Labs CBC & Chem 7: 10/03/16 06:07 10/03/16 06:07 Labs: Abnormal Lab Results - Last 24 Hours (Table) 10/03/16 10/03/16 10/03/16 Range/Units 06:07 06:07 06:07 RBC 4.03 L (4.30-5.90) m/uL Hgb 11.2 L (13.0-17.5) gm/dL Hct 35.5 L (39.0-53.0) % APTT 51.9 H (22.0-30.0) sec Sodium 136 L (137-145) mmol/L Chloride 108 H (98-107) mmol/L Assessment and Plan Plan: Assessment 1 acute pulmonary embolism involving the left lower lobe pulmonary artery branch with secondary severe pleuritic chest pain and shortness of breath, this is likely a provoked event following a inguinal hernia repair 2 superficial vein thrombosis involving lower extremity 3 remote history of DVT approximately 5 years ago, unprovoked 4 recent left inguinal hernia repair 5 hypertension 6 smoker 7 alcohol drinker 8 osteoarthritis Plan Into pain control. Eliquis for long-term anticoagulation regarding DVT and pulmonary embolism. Incentive spirometer. Tenuate pain control. We'll continue to follow.
[2016-10-03] MEDS: MULTIVITAMINS, THERA 1 EACH TAB PO SCH (14:07)
[2016-10-03] MEDS: APIXABAN 5 MG TAB PO SCH ×2 (14:07→21:48)
--- NOTE | 2016-10-03 17:05 | PN ---
DATE OF SERVICE: 10/03/2016 This 60-year-old gentleman, admitted with shortness of breath, also had acute pulmonary embolism. The patient had hemoptysis as well. The patient is being transitioned into Eliquis per Dr. Nguyen's recommendations. No shortness of breath. Complaint of chest pain while coughing; pleuritic type plus lower chest, left lower part. On exam, alert and oriented x3. Pulse 88, blood pressure 131/80, respiration 16, temperature 97.8, pulse ox 94% on room air. HEENT: Conjunctivae normal. NECK: No jugular venous distention. CARDIOVASCULAR SYSTEM: S1, S2 muffled. RESPIRATORY SYSTEM: Breath sounds diminished at the bases. Scattered rhonchi. No crackles. ABDOMEN: Soft, nontender. LEGS: No edema. No swelling. NERVOUS SYSTEM: No focal deficit. LABS: WBC 8.8, hemoglobin 11.2. Sodium 136. ASSESSMENT: 1. Shortness of breath with possible acute pulmonary embolism, left lower lobe with pleurisy. 2. Possibly chronic bronchitis. 3. Increased white count. 4. History of hypertension, essential. 5. Recent left inguinal hernia repair. 6. Hemoptysis. 7. History of deep venous thrombosis of the right leg. 8. History of recent hernia repair. 9. History of vision impairment of the right eye. 10. Superficial venous thrombophlebitis of the left greater saphenous vein in the left leg. 11. FULL CODE. RECOMMENDATIONS AND DISCUSSION: I recommend to continue the current medications, continue monitoring, continue symptomatic treatment. Continue with Eliquis. Closely follow with Dr. Nguyen. Further recommendations to follow.
--- NOTE | 2016-10-03 18:06 | P.PN ---
Subjective Principal diagnosis: Hx of DVT, acute PE Pt being seen today in follow up, he is going to start eliquis today, he denies any bleeding, breathing is stable. Objective - Vital Signs Vital signs: Vital Signs Temp 97.9 F 10/03/16 12:00 Pulse 74 10/03/16 16:00 Resp 16 10/03/16 16:00 BP 131/80 10/03/16 12:00 Pulse Ox 95 10/03/16 12:00 Intake & Output 10/02/16 10/03/16 10/03/16 18:59 06:59 18:59 Intake Total 2185.983 1735.735 971.757 Output Total 2700 700 400 Balance -855.736 6503.735 571.757 Weight 60.6 kg Intake: Intake, IV Titration 696.716 2144.735 241.757 Amount Heparin Sodium,Porcine/ 125.983 455.735 41.757 D5w Pmx 25,000 unit In Dextrose/Water 1 500ml. bag @ 18 UNITS/KG/HR 26. 94 mls/hr IV .[id number] NIA Rx#:[id number] Sodium Chloride 0.9% 1, 800 1280 200 000 ml @ 80 mls/hr IV . [id number] [facility]IA Rx#:[id number] Oral 1260 480 Blood Product 250 Output: Urine 2700 700 400 Other: Voiding Method Toilet Toilet Urinal Urinal # Voids 1 3 - Constitutional Constitutional Comment(s): pt sitting at bedside, he is independent and requires no assistance General appearance: Present: average body habitus, cooperative, no acute distress - Respiratory Details: respiration even and unlabored - Neurologic Neurologic: Present: CNII-XII intact - Musculoskeletal Musculoskeletal: Present: strength equal bilaterally - Psychiatric Psychiatric: Present: A&O x's 3, appropriate affect, intact judgment & insight - Labs CBC & Chem 7: 10/03/16 06:07 10/03/16 06:07 Labs: Abnormal Lab Results - Last 24 Hours (Table) 10/03/16 10/03/16 10/03/16 Range/Units 06:07 06:07 06:07 RBC 4.03 L (4.30-5.90) m/uL Hgb 11.2 L (13.0-17.5) gm/dL Hct 35.5 L (39.0-53.0) % APTT 51.9 H (22.0-30.0) sec Sodium 136 L (137-145) mmol/L Chloride 108 H (98-107) mmol/L Assessment and Plan (1) Pulmonary embolism on left Narrative/Plan: Hypercoaguable work up Rx put on pt chart, office will pt for f/u appt in about [address] Hernandez for results. Status: Acute
[2016-10-04] MEDS: IPRATROPIUM-ALBUTEROL 3 ML NEB INHALATION SCH ×4 (00:36→12:21)
[2016-10-04] MEDS: ALPRAZolam 0.25 MG TAB PO PRN (00:39)
[2016-10-04] MEDS: HYDROmorphone 1 MG/ML 1 ML SYRINGE IV PRN (06:12)
[2016-10-04 07:37] VITALS: BP 133/76; RESP 16; TEMP 98
[2016-10-04 08:12] VITALS: PULSE 78
[2016-10-04 09:26] LABS: Basophils % (A) 0 %; CH 28.3; Eosinophils # (A) 0.2 k/uL (0-0.7); Eosinophils % (A) 2 %; HCT 37.1 % (39.0-53.0); HDW 2.43; HGB 11.6 gm/dL (13.0-17.5); Luc # (Auto) 0.11; Luc % (Auto) 1; Lymphocytes # (A) 1.4 k/uL (1.0-4.8); Lymphocytes % (A) 13 %; MCH 27.9 pg (25.0-35.0); MCHC 31.4 g/dL (31.0-37.0); Mean Platelet Volume 6.8; Monocytes # (A) 0.5 k/uL (0-1.0); Monocytes % (A) 5 %; Neutrophils # (A) 8.2 k/uL (1.3-7.7); Neutrophils % (A) 79 %; RBC 4.16 m/uL (4.30-5.90); RDW 13.4 % (11.5-15.5); WBC 10.4 k/uL (3.8-10.6); WBC (Perox) 11.06
[2016-10-04] MEDS: SODIUM CHLORIDE 0.9% 1,000 ML IV SCH (09:56)
[2016-10-04 10:07] LABS: Anion Gap 8 mmol/L; Blood Urea Nitrogen 14 mg/dL (9-20); Calcium 9.1 mg/dL (8.4-10.2); Carbon Dioxide 24 mmol/L (22-30); Chloride 105 mmol/L (98-107); Glucose 83 mg/dL (74-99); Non-African American GFR(MDRD) >60 (>60 ml/min/1.73 sqM); Potassium 4.8 mmol/L (3.5-5.1); Sodium 137 mmol/L (137-145)
[2016-10-04] MEDS: HYDROcodone/APAP 5-325MG 1 EACH TAB PO PRN (10:07)
[2016-10-04] MEDS: amLODIPine 5 MG TAB PO SCH (10:09)
[2016-10-04] MEDS: APIXABAN 5 MG TAB PO SCH (10:09)
[2016-10-04] MEDS: LISINOPRIL 20 MG TAB PO SCH (10:09)
[2016-10-04] MEDS: NICOTINE 21MG/24HR PATCH TRANSDERM SCH (10:09)
[2016-10-04] MEDS: MULTIVITAMINS, THERA 1 EACH TAB PO SCH (14:14)
--- NOTE | 2016-10-04 17:21 | P.PN ---
Subjective Principal diagnosis: Pulmonary embolism This is a 60-year-old male patient underwent a left inguinal hernia repair on at [facility]. The patient was discharged home postop and yesterday the patient woke up having pain in his left chest. The pain was pleuritic in nature and it came severe to the point where the patient was unable to breathe nor take any deep breathing. Based on that, a CT angios the chest was done and the patient was found to have a left lower lobe pulmonary artery filling defect consistent with an pulmonary embolism. The patient was started on IV heparin. Patient also reports that approximately 5 years ago he had an unprovoked DVT of the right lower extremity. He took Coumadin for a short period of time and then he quits. He did not have any recurrence since then. No history of DVT or pulmonary embolism and the family. As an extensive coronary artery disease including his father, mother and brother. The patient currently is on IV heparin. No hemoptysis. He is taken adequate pain control. His given a incentive spirometer. He is hemodynamically stable. The Doppler of the lower extremity showed no evidence of DVT. There was however superficial vein almost cyst in the upper left greater saphenous vein near the junction with the common femoral vein. On 10/03/2016 the patient is feeling better. His further chest pain has somewhat subsided under the influence of Dilaudid and no cough. The patient IV heparin. The patient has been transitioned to Eliquis as he will be approved for this medication. No new complaints otherwise for now. No hemoptysis. No bleeding complications. Awaiting diet. No change in mental status. The patient is seen again today 10/04/2016 in follow-up on the regular medical floor. He is doing quite well. He is anxious to go home. He is in transition to all Eliquis. His left-sided chest discomfort has subsided. He denies any pulmonary complaints. His been up ambulating with assistance. Maintaining good O2 saturations in the 90s on room air. Objective - Vital Signs Vital signs: Vital Signs Temp 98 F 10/04/16 07:00 Pulse 78 10/04/16 08:03 Resp 16 10/04/16 07:00 BP 133/76 10/04/16 07:00 Pulse Ox 94 L 10/04/16 11:35 Intake & Output 10/03/16 10/04/16 10/04/16 18:59 06:59 18:59 Intake Total 381.646 5211 Output Total 400 Balance 568.392 2265 Weight 60 kg 59.738 kg Intake: Intake, IV Titration 241.757 Amount Heparin Sodium,Porcine/ 41.757 D5w Pmx 25,000 unit In Dextrose/Water 1 500ml. bag @ 18 UNITS/KG/HR 26. 94 mls/hr IV .[id number] NIA Rx#:[id number] Sodium Chloride 0.9% 1, 200 000 ml @ 80 mls/hr IV . [id number] NIA Rx#:[id number] Oral 480 1300 Blood Product 250 Output: Urine 400 Other: Voiding Method Toilet Toilet Toilet Urinal Urinal Urinal # Voids 3 2 3 - Exam The patient appeared well nourished and normally developed. Vital signs as documented. Head exam is unremarkable. No scleral icterus or corneal arcus noted. Neck is without jugular venous distension, thyromegaly, or carotid bruits. Carotid upstrokes are brisk bilaterally. Lungs sounds are diminished in the left lung base. Cardiac exam reveals the PMI to be normally sized and situated. Rhythm is regular. First and second heart sounds normal. No murmurs, rubs or gallops. Abdominal exam reveals normal bowel sounds, no masses, no organomegaly and no aortic enlargement. The patient had a left inguinal hernia that was repaired in the surgical wound site is dry clean and intact. Extremities are nonedematous and both femoral and pedal pulses are normal. - Labs CBC & Chem 7: 10/04/16 07:58 10/04/16 07:58 Labs: Abnormal Lab Results - Last 24 Hours (Table) 10/04/16 Range/Units 07:58 RBC 4.16 L (4.30-5.90) m/uL Hgb 11.6 L (13.0-17.5) gm/dL Hct 37.1 L (39.0-53.0) % Neutrophils # 8.2 H (1.3-7.7) k/uL Assessment and Plan Plan: Assessment 1 acute pulmonary embolism involving the left lower lobe pulmonary artery branch with secondary severe pleuritic chest pain and shortness of breath, this is likely a provoked event following a inguinal hernia repair 2 superficial vein thrombosis involving lower extremity 3 remote history of DVT approximately 5 years ago, unprovoked 4 recent left inguinal hernia repair 5 hypertension 6 smoker 7 alcohol drinker 8 osteoarthritis Plan we'll and The patient was seen and evaluated by Dr. Nguyen. The patient's pleuritic pain has subsided. He is maintaining good O2 saturations on room air. He is anxious to go home. He has been initiated on Eliquis. He'll follow-up in our office in 1-2 weeks' time. He and his are both encouraged to call sooner with any recurrence of symptoms or other questions or concerns.
--- NOTE | 2016-10-04 23:36 | DS ---
DATE OF ADMISSION: 10/01/2016 DATE OF DISCHARGE: 10/04/2016 Patient is a 60-year-old admitted with pulmonary embolism. Patient is clinically doing well. No hemoptysis. No chest pain. Patient is saturating well. Patient will be discharged today on Eliquis. Patient was evaluated by Pulmonology as well as Oncology. Patient was seen and examined on the day of discharge. Vitals are stable. GENERAL: The patient is alert and oriented x3, not in any acute distress. Well developed, well nourished. HEENT: Pupils are round and equally reacting to light. EOMI. No scleral icterus. No conjunctival pallor. Normocephalic, atraumatic. No pharyngeal erythema. No thyromegaly. CARDIOVASCULAR: S1 and S2 present. No murmurs, rubs, or gallops. PULMONARY: Chest is clear to auscultation, no wheezing or crackles. ABDOMEN: Soft, nontender, nondistended, normoactive bowel sounds. No palpable organomegaly. MUSCULOSKELETAL: No joint swelling or deformity. EXTREMITIES: No cyanosis, clubbing, or pedal edema. NEUROLOGICAL: Gross neurological examination did not reveal any focal deficits. SKIN: No rashes. ASSESSMENT AND PLAN: 1. Acute pulmonary embolism, left lower lobe, with pleuritic pain, improved at this point of time. Patient apparently had deep venous thrombosis in the past. Patient needs to be on lifelong anticoagulation. 2. Hypertension. Patient will be discharged today in stable medical condition to home. Activity as tolerated. Cardiac diet. Spent greater than 35 minutes in total discharge process. Patient will follow up with Dr. Mauricio Hernandez on October 24 at 3:00 p.m.; Dr. Trinidad on October 06 10:00 a.m.; Dr. Ciro Nguyen on October 19 at 9:30.
[2016-10-10] MEDS ORDERED: APIXABAN 5 MG TAB PO SCH (09:00)
== END 2016-10-04 15:05 | disposition home or self-care (01) | DRG 176 ==
LOC: EC 13:48 → 6SEL 16:25 → 5MS5E 10-03 15:07
PROVIDERS: ADMIT Internal Medicine; ATTEND Internal Medicine
DX: I26.99 Other pulmonary embolism without acute cor pulmonale (principal); I10 Essential (primary) hypertension; R09.1 Pleurisy; I80.02 Phlebitis and thrombophlebitis of superficial vessels of left lower extremity; M19.91 Primary osteoarthritis, unspecified site; F17.200 Nicotine dependence, unspecified, uncomplicated; H54.7 Unspecified visual loss; J44.9 Chronic obstructive pulmonary disease, unspecified; F10.20 Alcohol dependence, uncomplicated; Z86.718 Personal history of other venous thrombosis and embolism; Z79.899 Other long term (current) drug therapy; Z79.82 Long term (current) use of aspirin
CPT/HCPCS: 36415; 71020; 71275; 80048; 80053; 80306; 81003; 82150; 82550; 82553; 83690; 83735; 83880; 84484; 85025; 85379; 85610; 85730; 93005; 93970; 94640; 94760; 96365; 96375; 96376; 99291

== ENCOUNTER 2017-02-10 08:42 | Emergency (ER) | payer BC ==
[2017-02-10 08:55] VITALS: RESP 18
[2017-02-10] MEDS ORDERED: predniSONE 20 MG TAB PO STA (09:05)
[2017-02-10] MEDS ORDERED: CYCLOBENZAPRINE 10 MG TAB PO STA (09:05)
[2017-02-10] MEDS ORDERED: HYDROcodone/APAP 5-325MG 1 EACH TAB PO STA (09:05)
--- NOTE | 2017-02-10 09:07 | ED ---
Back Pain HPI - General Chief Complaint: Back Pain/Injury Stated Complaint: back and leg pain Time Seen by Provider: 02/10/17 08:57 Source: patient, RN notes reviewed Limitations: no limitations - History of Present Illness Initial Comments: This a 61-year-old male presents emergency Department chief complaint of back pain, left leg pain. Patient states this started 3-4 days ago. Patient states the pain has not improved actually has worsened. He states he has pain and straightening down from his left low back, left hip region down to his left knee. Patient denies any bowel, bladder incontinence or retention. He states he's had on and off back pain by states is the expected due to his age. Patient denies any abdominal pain including nausea, vomiting diarrhea constipation. Patient denies any dysuria hematuria. Patient states he is currently taking Dilacor is for prior DVTs. Patient states that he also had a left inguinal hernia repair proximal 2 months ago but states that is healing well. Patient states his pain is worse with movement and better at rest. Patient states he has no pain when he moves his left knee or left hip he states it is just deep inside. Patient denies any swelling, discoloration, change in color or warmth to his left leg. - Related Data Previous Rx's Medication Instructions Recorded Apixaban [Eliquis] 0 mg PO DIRECTED #80 tab 10/03/16 HYDROcodone/APAP 5-325MG [[employer] 1 each PO Q6HR PRN #20 tab 10/03/16 5-325] Multivitamins, Thera [Multivitamin 1 each PO DAILY@1200 #30 tab 10/03/16 (formulary)] Nicotine 21Mg/24Hr Patch [Habitrol] 1 patch TRANSDERM DAILY #30 patch 10/03/16 amLODIPine [Norvasc] 5 mg PO BID #60 tab 10/03/16 Cyclobenzaprine [Flexeril] 10 mg PO TID PRN #15 tab 02/10/17 Hydrocodone/Acetaminophen [[employer] 1 tab PO Q6HR PRN #20 tab 02/10/17 5-325] methylPREDNISolone [Medrol Dose 4 mg PO DIRECTED #1 pack 02/10/17 Pack] Allergies Allergy/AdvReac Type Severity Reaction Status Date / Time No Known Allergies Allergy Verified 02/10/17 08:55 Review of Systems ROS Statement: Those systems with pertinent positive or pertinent negative responses have been documented in the HPI. ROS Other: All systems not noted in ROS Statement are negative. Past Medical History Past Medical History: Deep Vein Thrombosis (DVT), Hypertension Additional Past Medical History / Comment(s): Vision impairment (R) eye, hernia repair-left inguinal on 09/22/2016, DVT in the LE 5 years ago, alcoholism, HTN, COPD History of Any Multi-Drug Resistant Organisms: None Reported Past Surgical History: Hernia Repair Additional Past Surgical History / Comment(s): hernia repair-left inguinal on 09/22/2016, DVT in the LE 5 years ago, alcoholism, HTN, COPD Past Psychological History: No Psychological Hx Reported Smoking Status: Former smoker Past Alcohol Use History: Daily Past Drug Use History: None Reported - Past Family History Mother Family Medical History: Myocardial Infarction ([place]) Father Family Medical History: Hypertension General Exam Limitations: no limitations General appearance: alert, in no apparent distress Respiratory exam: Present: normal lung sounds bilaterally. Absent: respiratory distress, wheezes, rales, rhonchi, stridor Cardiovascular Exam: Present: regular rate, normal rhythm, normal heart sounds. Absent: systolic murmur, diastolic murmur, rubs, gallop, clicks GI/Abdominal exam: Present: soft, normal bowel sounds. Absent: distended, tenderness, guarding, rebound, rigid Extremities exam: Present: other (Bilateral lower extremities pedal pulses equal bilaterally with normal cap refill less than 2 seconds, equal color and equal warmth strength is equal bilaterally 5/5) Back exam: Present: full ROM, other (Pain with left straight leg raise). Absent : tenderness, paraspinal tenderness, vertebral tenderness Neurological exam: Present: alert, oriented X3, CN II-XII intact, reflexes normal. Absent: motor sensory deficit Skin exam: Present: warm, dry, intact, normal color. Absent: rash Course Vital Signs 02/10/17 08:54 Temperature 98.5 F Pulse Rate 83 Respiratory 18 Rate Blood Pressure 190/97 O2 Sat by Pulse 98 Oximetry Medical Decision Making - Medical Decision Making 61-year-old male presents emergency department for right leg pain, low back pain. Patient has lumbar radiculopathy. Patient states she does feel improved from medications here. X-rays show severe degenerative changes. Patient we discharged and advised all Dr. Jane. Return parameters were discussed. Disposition Clinical Impression: Lumbar radiculopathy, acute Disposition: HOME SELF-CARE Condition: Stable Instructions: Lumbar Radiculopathy (ED) Additional Instructions: Please return to the Emergency Department if symptoms worsen or any other concerns. Prescriptions: Cyclobenzaprine [Flexeril] 10 mg PO TID PRN #15 tab PRN Reason: Muscle Spasm Hydrocodone/Acetaminophen [[employer] 5-325] 1 tab PO Q6HR PRN #20 tab PRN Reason: Pain methylPREDNISolone [Medrol Dose Pack] 4 mg PO DIRECTED #1 pack Referrals: Teo Trinidad MD [Primary Care Provider] - 1-2 days Time of Disposition: 10:15
--- NOTE | 2017-02-10 09:51 | XR ---
EXAMINATION TYPE: XR lumbar spine 2 or 3V , 3 VIEWS DATE OF EXAM ORDERED: 02/10/2017 HISTORY: Pain. COMPARISON: None. FINDINGS: There is a levoscoliosis. Vertebral body height and alignment are maintained. There is no spondylolysis or spondylolisthesis. T here is diffuse degenerative disc disease most marked at L4-5 and L5-S1. There is mild, diffuse hyper trophic spondylosis. There is some spondylosis deformans. Facets are unremarkable. IMPRESSION: 1. NO ACUTE OSSEOUS LESION. 2. MODERATELY SEVERE DEGENERATIVE CHANGE.
[2017-02-10 10:24] VITALS: BP 159/86; PULSE 84; TEMP 98
== END 2017-02-10 10:24 | disposition home or self-care (01) ==
LOC: EC 08:42
DX: M54.16 Radiculopathy, lumbar region (principal); I10 Essential (primary) hypertension; Z86.718 Personal history of other venous thrombosis and embolism; Z87.891 Personal history of nicotine dependence; Z79.899 Other long term (current) drug therapy
CPT/HCPCS: 72100; 99283; J7512

== ENCOUNTER 2017-02-11 09:42 | Emergency (ER) | payer BC ==
[2017-02-11 09:48] VITALS: BP 142/84; PULSE 100; RESP 20; TEMP 97.7
[2017-02-11] MEDS ORDERED: KETOROLAC 60 MG/2 ML VIAL IM STA (10:29)
[2017-02-11] MEDS ORDERED: MORPHINE SULFATE 10 MG/ML SYRINGE IM STA (10:29)
--- NOTE | 2017-02-11 10:34 | ED ---
General Adult HPI - General Chief complaint: Back Pain/Injury Stated complaint: back/leg/hip pain Time Seen by Provider: 02/11/17 10:18 Source: patient, family, RN notes reviewed Mode of arrival: wheelchair Limitations: no limitations - History of Present Illness Initial comments: Patient is a pleasant 59-year-old male presenting to the emergency department with black and leg pain. Patient states discomfort is more in his leg. Patient states starts towards the hip and radiates down to the knee and somewhat past in. No loss of control of bowel or bladder. Discomfort is greatly increased with movement. Patient states his back discomfort is mild except for when he straightens out and becomes more severe. Patient does have some history of mild back problems previously. No weakness. No rash. - Related Data Home Medications Medication Instructions Recorded Confirmed Apixaban [Eliquis] 5 mg PO BID 02/11/17 02/11/17 HYDROcodone/APAP 5-325MG [[place] 1 tab PO Q6HR PRN 02/11/17 02/11/17 5-325] methylPREDNISolone [Medrol Dose See Taper PO DAILY 02/11/17 02/11/17 Pack] Previous Rx's Medication Instructions Recorded amLODIPine [Norvasc] 5 mg PO BID #60 tab 10/03/16 Cyclobenzaprine [Flexeril] 10 mg PO TID PRN #15 tab 02/10/17 Allergies Allergy/AdvReac Type Severity Reaction Status Date / Time No Known Allergies Allergy Verified 02/11/17 10:22 Review of Systems ROS Statement: Those systems with pertinent positive or pertinent negative responses have been documented in the HPI. ROS Other: All systems not noted in ROS Statement are negative. Constitutional: Denies: fever Eyes: Denies: eye pain ENT: Denies: ear pain Respiratory: Denies: cough Cardiovascular: Denies: chest pain Endocrine: Denies: fatigue Gastrointestinal: Denies: abdominal pain Genitourinary: Denies: dysuria Musculoskeletal: Reports: back pain Skin: Denies: rash Neurological: Denies: weakness Past Medical History Past Medical History: Deep Vein Thrombosis (DVT), Hypertension Additional Past Medical History / Comment(s): Vision impairment (R) eye, hernia repair-left inguinal on 09/22/2016, DVT in the LE 5 years ago, alcoholism, HTN, COPD History of Any Multi-Drug Resistant Organisms: None Reported Past Surgical History: Hernia Repair Additional Past Surgical History / Comment(s): hernia repair-left inguinal on 09/22/2016, DVT in the LE 5 years ago, alcoholism, HTN, COPD Past Psychological History: No Psychological Hx Reported Smoking Status: Former smoker Past Alcohol Use History: Daily Past Drug Use History: None Reported - Past Family History Mother Family Medical History: Myocardial Infarction ([place]) Father Family Medical History: Hypertension General Exam Limitations: no limitations General appearance: alert, in no apparent distress, other (Exam is somewhat limited by patient refusing to get out of wheelchair and getting changed into gown.) Head exam: Present: atraumatic Eye exam: Present: normal appearance, PERRL ENT exam: Present: normal oropharynx Neck exam: Present: normal inspection Respiratory exam: Present: normal lung sounds bilaterally Cardiovascular Exam: Present: regular rate, normal rhythm Expanded Peripheral pulses: 2+: Posterior Tibialis (R), Posterior Tibialis (L) GI/Abdominal exam: Present: soft. Absent: tenderness Extremities exam: Present: normal inspection, full ROM, other (No leg pain on exam. No calf tenderness. No swelling.). Absent: tenderness, pedal edema, calf tenderness Back exam: Present: normal inspection. Absent: tenderness Neurological exam: Present: alert. Absent: motor sensory deficit Psychiatric exam: Present: normal affect, normal mood Skin exam: Present: normal color Course Vital Signs 02/11/17 09:47 Temperature 97.7 F Pulse Rate 100 Respiratory 20 Rate Blood Pressure 142/84 O2 Sat by Pulse 98 Oximetry Medical Decision Making - Medical Decision Making Patient states the reason for his visit here is he would like to be cured today. Patient is offered additional x-ray and ultrasound studies however refuses. After further discussion patient is agreeable to injection of pain medication and will follow-up with orthopedics. Disposition Clinical Impression: Lumbar radiculopathy, acute Disposition: HOME SELF-CARE Condition: Stable Instructions: Lumbar Radiculopathy (ED) Additional Instructions: Please follow-up to primary care physician and orthopedics in the beginning of the week. Return for weakness, loss of control of bowel or bladder, swelling, rash, increased pain, worsening symptoms or other concerns. Referrals: Teo Trinidad MD [Primary Care Provider] - 1-2 days Pastor Butt MD [STAFF PHYSICIAN] - 1-2 days Soraya Whitehead DO [Doctor of Osteopathic Medicine] - 1-2 days Time of Disposition: 10:34
== END 2017-02-11 11:03 | disposition home or self-care (01) ==
LOC: EC 09:42
DX: M54.16 Radiculopathy, lumbar region (principal); Z87.891 Personal history of nicotine dependence; Z79.01 Long term (current) use of anticoagulants; Z79.52 Long term (current) use of systemic steroids; Z86.718 Personal history of other venous thrombosis and embolism
CPT/HCPCS: 99283; 96372 ×2; J2270; J1885

== ENCOUNTER 2017-06-25 16:46 | Emergency (ER) | payer BC ==
[2017-06-25] MEDS ORDERED: KETOROLAC 60 MG/2 ML VIAL IM STA (19:21)
[2017-06-25] MEDS ORDERED: DIAZEPAM 5 MG/ML 2 ML INJ IM ONE (19:21)
[2017-06-25] MEDS ORDERED: ORPHENADRINE 30 MG/ML 2 ML VIAL IM STA (19:21)
--- NOTE | 2017-06-25 19:58 | ED ---
General Adult HPI - General Chief complaint: Back Pain/Injury Stated complaint: Back Pain Time Seen by Provider: 06/25/17 19:08 Source: patient, RN notes reviewed Mode of arrival: wheelchair Limitations: no limitations - History of Present Illness Initial comments: 61 yo male presents to the ER with cc of flare up of his chronic back pain. Patient states that he sees a back specialist and has had injection which has been helping until today. He states his back just keeps spasming. Patient states that it spasms so hard sometimes it makes him feel almost short of breath. He states that it is much like his typical flareup of his pain. he has not been Taken his home medications because they do not seem to be helping. Patient states that he is hoping there something we can give him neck and help relieve the spasms. He denies any changes in bowel or bladder habits he denies any loss by bladder control any saddle anesthesia. Patient states the flareup of his exact normal typical back pain.Patient denies any recent fever, chills, shortness of breath, chest pain, abdominal pain, nausea vomiting, numbness or tingling, dysuria or hematuria, constipation or diarrhea, headaches or visual changes, or any other current symptoms. - Related Data Home Medications Medication Instructions Recorded Confirmed Apixaban [Eliquis] 5 mg PO BID 02/11/17 02/11/17 HYDROcodone/APAP 5-325MG [[place] 1 tab PO Q6HR PRN 02/11/17 02/11/17 5-325] methylPREDNISolone [Medrol Dose See Taper PO DAILY 02/11/17 02/11/17 Pack] Previous Rx's Medication Instructions Recorded amLODIPine [Norvasc] 5 mg PO BID #60 tab 10/03/16 Cyclobenzaprine [Flexeril] 10 mg PO TID PRN #15 tab 02/10/17 Orphenadrine [Norflex] 100 mg PO Q12H #10 tablet.er 06/25/17 Allergies Allergy/AdvReac Type Severity Reaction Status Date / Time No Known Allergies Allergy Verified 06/25/17 18:41 Review of Systems ROS Statement: Those systems with pertinent positive or pertinent negative responses have been documented in the HPI. ROS Other: All systems not noted in ROS Statement are negative. Past Medical History Past Medical History: Deep Vein Thrombosis (DVT), Hypertension Additional Past Medical History / Comment(s): Vision impairment (R) eye, hernia repair-left inguinal on 09/22/2016, DVT in the LE 5 years ago, alcoholism, HTN, COPD, chronic back pain History of Any Multi-Drug Resistant Organisms: None Reported Past Surgical History: Hernia Repair Additional Past Surgical History / Comment(s): hernia repair-left inguinal on 09/22/2016, DVT in the LE 5 years ago, alcoholism, HTN, COPD Past Psychological History: No Psychological Hx Reported Smoking Status: Current every day smoker Past Alcohol Use History: Occasional Past Drug Use History: None Reported - Past Family History Mother Family Medical History: Myocardial Infarction ([place]) Father Family Medical History: Hypertension General Exam Limitations: no limitations General appearance: alert, in no apparent distress Neck exam: Present: normal inspection. Absent: tenderness, meningismus, lymphadenopathy Respiratory exam: Present: normal lung sounds bilaterally. Absent: respiratory distress, wheezes, rales, rhonchi, stridor Cardiovascular Exam: Present: regular rate, normal rhythm, normal heart sounds. Absent: systolic murmur, diastolic murmur, rubs, gallop, clicks Extremities exam: Present: normal inspection, full ROM. Absent: tenderness Back exam: Present: normal inspection, full ROM, muscle spasm (Left-sided paraspinal). Absent: rash noted Neurological exam: Present: alert, oriented X3 Psychiatric exam: Present: normal affect, normal mood Skin exam: Present: warm, dry, intact, normal color. Absent: rash Course Vital Signs 06/25/17 18:38 Temperature 98.1 F Pulse Rate 108 H Respiratory 20 Rate Blood Pressure 123/70 O2 Sat by Pulse 96 Oximetry Medical Decision Making - Medical Decision Making 61-year-old male presents for flareup of his chronic back pain. This and we did give him injections that did help with his pain. We discussed the continued take his home medications. We discussed follow-up with his doctor. We did discuss return parameters all questions. Patient family stated the Th[facility] management this plan. All questions have been answered. Disposition Clinical Impression: Chronic back pain, Lumbar paraspinal muscle spasm Disposition: HOME SELF-CARE Condition: Stable Instructions: Chronic Back Pain (ED) Additional Instructions: Please use medication as discussed. Please follow up with family doctor if symptoms have not improved over the next two days. Please return to the emergency room if your symptoms increase or worsen or for any other concerns. Prescriptions: Orphenadrine [Norflex] 100 mg PO Q12H #10 tablet.er Referrals: Teo Trinidad MD [Primary Care Provider] - 1-2 days Time of Disposition: 20:25
[2017-06-25] MEDS ORDERED: CYCLOBENZAPRINE 10MG STARTER 3 TAB BTL PO STA (20:25)
[2017-06-25 20:39] VITALS: BP 132/65; PULSE 92; RESP 18; TEMP 98.4
== END 2017-06-25 20:35 | disposition home or self-care (01) ==
LOC: EC 16:46
DX: M62.830 Muscle spasm of back (principal); G89.29 Other chronic pain; J44.9 Chronic obstructive pulmonary disease, unspecified; F17.200 Nicotine dependence, unspecified, uncomplicated; Z86.718 Personal history of other venous thrombosis and embolism; Z79.01 Long term (current) use of anticoagulants; Z79.52 Long term (current) use of systemic steroids
CPT/HCPCS: 99283; 96372 ×3; J2360; J3360; J1885

== ENCOUNTER 2017-06-29 12:27 | Inpatient (IN) | payer BC ==
[2017-06-29] MEDS ORDERED: IPRATROPIUM 0.5 MG/2.5 ML NEBU INHALATION STA (13:14)
[2017-06-29] MEDS ORDERED: ALBUTEROL NEBULIZED 2.5 MG/3 ML INHALATION STA (13:14)
[2017-06-29] MEDS ORDERED: SODIUM CHLORIDE 0.9% 1,000 ML IV STA (13:14)
[2017-06-29] MEDS ORDERED: methylPREDNISolone SOD SUCCI 125 MG/2 ML VIAL IV STA (13:14)
[2017-06-29] MEDS ORDERED: SODIUM CHLORIDE 0.9% 500 ML IV STA (13:14)
--- NOTE | 2017-06-29 13:17 | ED ---
General Adult HPI - General Chief complaint: Upper Respiratory Infection Stated complaint: Coughing up Blood/Dark Urine Time Seen by Provider: 06/29/17 13:03 Source: patient, RN notes reviewed, old records reviewed Mode of arrival: ambulatory Limitations: no limitations - History of Present Illness Initial comments: 61-year-old male presents for evaluation of right lateral chest pain, cough and hemoptysis. Patient is a current every day smoker. He has a long history of tobacco use. States he's had a cough which is productive of blood tinged mucus over the past several days. He's also had worsening right lateral chest pain which is sharp and worse with deep inspiration. Denies fever or chills. Denies URI 6. Denies abdominal pain nausea or vomiting. Patient does have history of DVT and PE. He was previously on anticoagulation but has been off for several months. - Related Data Home Medications Medication Instructions Recorded Confirmed amLODIPine BESYLATE/BENAZEPRIL 1 tab PO BID 06/29/17 06/29/17 [amLODIPine BESYLATE/BENAZEPRIL 5-20 mg] Previous Rx's Medication Instructions Recorded Orphenadrine [Norflex] 100 mg PO Q12H #10 tablet.er 06/25/17 Allergies Allergy/AdvReac Type Severity Reaction Status Date / Time No Known Allergies Allergy Verified 06/29/17 13:11 Review of Systems ROS Statement: Those systems with pertinent positive or pertinent negative responses have been documented in the HPI. ROS Other: All systems not noted in ROS Statement are negative. Past Medical History Past Medical History: Deep Vein Thrombosis (DVT), Hypertension Additional Past Medical History / Comment(s): Vision impairment (R) eye, DVT in the LE 5 years ago, alcoholism, HTN, COPD, chronic back pain History of Any Multi-Drug Resistant Organisms: None Reported Past Surgical History: Hernia Repair Additional Past Surgical History / Comment(s): hernia repair-left inguinal on 09/22/2016 Past Psychological History: No Psychological Hx Reported Smoking Status: Current every day smoker Past Alcohol Use History: Occasional Past Drug Use History: None Reported - Past Family History Mother Family Medical History: Myocardial Infarction ([place]) Father Family Medical History: Hypertension General Exam Limitations: no limitations General appearance: alert, in no apparent distress Head exam: Present: atraumatic, normocephalic Eye exam: Present: normal appearance, PERRL ENT exam: Present: normal exam Neck exam: Present: normal inspection. Absent: tenderness, meningismus Respiratory exam: Present: wheezes, prolonged expiratory. Absent: respiratory distress Cardiovascular Exam: Present: regular rate, normal rhythm GI/Abdominal exam: Present: soft. Absent: distended, tenderness, guarding, rebound Extremities exam: Present: normal inspection, normal capillary refill, calf tenderness (Left). Absent: pedal edema Neurological exam: Present: alert, oriented X3, CN II-XII intact Psychiatric exam: Present: normal affect, normal mood Skin exam: Present: warm, dry, intact. Absent: cyanosis, diaphoretic Course Vital Signs 06/29/17 06/29/17 06/29/17 12:30 13:32 13:39 Temperature 98.5 F Pulse Rate 95 88 94 Respiratory 20 Rate Blood Pressure 138/64 O2 Sat by Pulse 98 Oximetry 06/29/17 15:04 Temperature Pulse Rate 99 Respiratory 22 Rate Blood Pressure 125/68 O2 Sat by Pulse 97 Oximetry EKG Findings - EKG Comments: EKG Findings:: EKG shows no sinus rhythm, ventricular rate 89,. 1:30, castration 92, QTC 447, no signs of ST segment elevation or depression Medical Decision Making - Medical Decision Making 59-year-old male presenting with right lateral chest pain and blood-tinged mucous. Patient does have history of DVT. He's been off anticoagulation for several months. Chest x-rays obtained, shows right lower lobe infiltrate, this is likely pneumonia versus pulmonary infarction. CT angiography is obtained, does show a right lower lobe pulmonary embolism. White blood cell count 9.4, hemoglobin 12.6. Electrolytes within normal limits, troponin negative. EKG nonischemic. Patient started on heparin, he is given 1 dose of antibiotics for to be required pneumonia, however this is clinically more consistent with pulmonary embolism and infarction. - Lab Data Result diagrams: 06/29/17 13:42 06/29/17 13:42 Lab Results 06/29/17 06/29/17 06/29/17 Range/Units 13:42 13:42 13:42 WBC 9.4 (3.8-10.6) k/uL RBC 4.63 (4.30-5.90) m/uL Hgb 12.6 L (13.0-17.5) gm/dL Hct 41.9 (39.0-53.0) % MCV 90.5 (80.0-100.0) fL MCH 27.2 (25.0-35.0) pg MCHC 30.1 L (31.0-37.0) g/dL RDW 12.8 (11.5-15.5) % Plt Count 374 (150-450) k/uL Neutrophils % 76 % Lymphocytes % 15 % Monocytes % 7 % Eosinophils % 1 % Basophils % 0 % Neutrophils # 7.1 (1.3-7.7) k/uL Lymphocytes # 1.4 (1.0-4.8) k/uL Monocytes # 0.7 (0-1.0) k/uL Eosinophils # 0.1 (0-0.7) k/uL Basophils # 0.0 (0-0.2) k/uL Hypochromasia Slight PT (9.0-12.0) sec INR (<1.2) APTT (22.0-30.0) sec Sodium 138 (137-145) mmol/L Potassium 4.8 (3.5-5.1) mmol/L Chloride 101 (98-107) mmol/L Carbon Dioxide 26 (22-30) mmol/L Anion Gap 11 mmol/L BUN 26 H (9-20) mg/dL Creatinine 1.14 (0.66-1.25) mg/dL Est GFR (MDRD) Af Amer >60 (>60 ml/min/1.73 sqM) Est GFR (MDRD) Non-Af >60 (>60 ml/min/1.73 sqM) Glucose 96 (74-99) mg/dL Calcium 9.8 (8.4-10.2) mg/dL Magnesium 2.2 (1.6-2.3) mg/dL Total Bilirubin 0.4 (0.2-1.3) mg/dL AST 73 H (17-59) U/L ALT 72 (21-72) U/L Alkaline Phosphatase 125 (38-126) U/L Total Creatine Kinase 61 (55-170) U/L CK-MB (CK-2) <0.2 (0.0-2.4) ng/mL CK-MB (CK-2) Rel Index Troponin I <0.012 (0.000-0.034) ng/mL Total Protein 6.6 (6.3-8.2) g/dL Albumin 3.4 L (3.5-5.0) g/dL 06/29/17 Range/Units 13:42 WBC (3.8-10.6) k/uL RBC (4.30-5.90) m/uL Hgb (13.0-17.5) gm/dL Hct (39.0-53.0) % MCV (80.0-100.0) fL MCH (25.0-35.0) pg MCHC (31.0-37.0) g/dL RDW (11.5-15.5) % Plt Count (150-450) k/uL Neutrophils % % Lymphocytes % % Monocytes % % Eosinophils % % Basophils % % Neutrophils # (1.3-7.7) k/uL Lymphocytes # (1.0-4.8) k/uL Monocytes # (0-1.0) k/uL Eosinophils # (0-0.7) k/uL Basophils # (0-0.2) k/uL Hypochromasia PT 9.4 (9.0-12.0) sec INR 0.9 (<1.2) APTT 24.1 (22.0-30.0) sec Sodium (137-145) mmol/L Potassium (3.5-5.1) mmol/L Chloride (98-107) mmol/L Carbon Dioxide (22-30) mmol/L Anion Gap mmol/L BUN (9-20) mg/dL Creatinine (0.66-1.25) mg/dL Est GFR (MDRD) Af Amer (>60 ml/min/1.73 sqM) Est GFR (MDRD) Non-Af (>60 ml/min/1.73 sqM) Glucose (74-99) mg/dL Calcium (8.4-10.2) mg/dL Magnesium (1.6-2.3) mg/dL Total Bilirubin (0.2-1.3) mg/dL AST (17-59) U/L ALT (21-72) U/L Alkaline Phosphatase (38-126) U/L Total Creatine Kinase (55-170) U/L CK-MB (CK-2) (0.0-2.4) ng/mL CK-MB (CK-2) Rel Index Troponin I (0.000-0.034) ng/mL Total Protein (6.3-8.2) g/dL Albumin (3.5-5.0) g/dL Critical Care Time Critical Care Time: Yes Total Critical Care Time: 35 Disposition Clinical Impression: Pulmonary embolism and infarction Disposition: ADMITTED IP TO THIS [facility] Condition: Serious Referrals: Teo Trinidad MD [Primary Care Provider] - 1-2 days Decision to Admit Reason: Admit from EC Decision Date: 06/29/17 Decision Time: 15:17
[2017-06-29] MEDS ORDERED: RX INFO: IV CONTRAST WAS GIVEN 1 EACH MISC MISCELLANE PRN (13:19)
[2017-06-29 14:00] LABS: Basophils % (A) 0 %; Eosinophils # (A) 0.1 k/uL (0-0.7); Eosinophils % (A) 1 %; HCT 41.9 % (39.0-53.0); HGB 12.6 gm/dL (13.0-17.5); Hypochromasia Slight; Lymphocytes # (A) 1.4 k/uL (1.0-4.8); Lymphocytes % (A) 15 %; MCH 27.2 pg (25.0-35.0); MCHC 30.1 g/dL (31.0-37.0); MCV 90.5 fL (80.0-100.0); Mean Platelet Volume 6.2; Monocytes # (A) 0.7 k/uL (0-1.0); Monocytes % (A) 7 %; Neutrophils # (A) 7.1 k/uL (1.3-7.7); Neutrophils % (A) 76 %; Platelet Count 374 k/uL (150-450); RBC 4.63 m/uL (4.30-5.90); RDW 12.8 % (11.5-15.5); WBC 9.4 k/uL (3.8-10.6)
[2017-06-29 14:10] LABS: ALT 72 U/L (21-72); AST 73 U/L (17-59); Albumin 3.4 g/dL (3.5-5.0); Alkaline Phosphatase 125 U/L (38-126); Anion Gap 11 mmol/L; Blood Urea Nitrogen 26 mg/dL (9-20); Calcium 9.8 mg/dL (8.4-10.2); Carbon Dioxide 26 mmol/L (22-30); Chloride 101 mmol/L (98-107); Glucose 96 mg/dL (74-99); Magnesium 2.2 mg/dL (1.6-2.3); Potassium 4.8 mmol/L (3.5-5.1); Sodium 138 mmol/L (137-145); Total Bilirubin 0.4 mg/dL (0.2-1.3); Total Protein 6.6 g/dL (6.3-8.2)
[2017-06-29 14:12] LABS: INR 0.9 (<1.2); Partial Thromboplastin Time 24.1 sec (22.0-30.0); Prothrombin Time 9.4 sec (9.0-12.0)
[2017-06-29 14:20] LABS: Creatine Kinase 61 U/L (55-170)
--- NOTE | 2017-06-29 14:29 | XR ---
EXAMINATION TYPE: XR chest 2V DATE OF EXAM: 06/29/2017 COMPARISON: 10/01/2016 INDICATION: Difficulty breathing TECHNIQUE: Frontal and lateral views of the chest are obtained. FINDINGS: The heart size is normal. The pulmonary vasculature is normal. Mild infiltrate is along the right diaphragm. Correlate for pneumonia. Atelectasis could be considere d. Follow-up is recommended.. IMPRESSION: 1. Right lower lobe infiltrate above the diaphragm. Correlate for atelectasis or pneumonia.
[2017-06-29 14:33] LABS: Creatine Kinase MB <0.2 ng/mL (0.0-2.4); Troponin I <0.012 ng/mL (0.000-0.034)
[2017-06-29] MEDS ORDERED: HEPARIN SODIUM,PORCINE 5,000 UNIT/ML 1 ML VIAL IV PRN (14:47)
[2017-06-29] MEDS ORDERED: HEPARIN SODIUM,PORCINE 5,000 UNIT/ML 1 ML VIAL IV ONE (14:47)
[2017-06-29] MEDS ORDERED: AZITHROMYCIN 500 MG in SODIUM CHLORIDE 0.9% 250 ML IVPB STA (14:48)
[2017-06-29] MEDS ORDERED: cefTRIAXone IN SWFI 1,000 MG/10 ML SYRINGE IVP STA (14:48)
--- NOTE | 2017-06-29 14:48 | CT ---
CT CHEST FOR PULMONARY EMBOLISM. EXAMINATION TYPE: CT angio chest DATE OF EXAM: 06/29/2017 INDICATION: Hemoptysis CT DLP: 176.0 mGycm, Automated exposure control for dose reduction was used. CONTRAST: Patient injected with 70 mL of Omnipaque 350. COMPARISON: 10/01/2016 TECHNIQUE: CT of the chest is performed on a spiral scan at 2 mm thick sections. Study is performed with intravenous contrast timed for evaluation for pulmonary embolism. This will limit additional po rtions of the evaluation. 3-D MIP images reconstructed by the technologist are reviewed on the compu ter in the coronal and sagittal planes. FINDINGS: There is a pulmonary embolism is extending into the right lower lobe. A few additional small pulmonary emboli are within smaller branches within the left lower lobe. These appear to have incomplete obstruction and may be chronic. No mediastinal or hilar adenopathy enlarged by CT criteria is evident. The ascending aorta diameter at the level of the main pulmonary artery is 3.0 cm. The main pulmonary artery diameter at the bifur cation is 2.1 cm. Some scarring is in the lung apices. There is an area of pneumonitis or scarring right apex. Series 5 image 21. Follow-up in 3 months is recommended. There is a 0.5 cm nodule periphery right upper lobe. Series 5 image 34. Some scattered pleural calcifications are present posterior right lung. Series 4 image 44 additional punctate calcifications are present There is a large consolidation in the right lower lobe. Correlate for pneumonia. Underlying mass is n ot excluded. There is some infiltrate or consolidation in the posterior lingula above the diaphragm. Mild streak opacities at the left base may be some atelectasis. Limited CT section through the upper abdomen are unremarkable. IMPRESSIONS: 1. Acute right lower lobe pulmonary embolism. 2. Small chronic emboli may remain at the left posterior base. 3. Consolidation and/or mass right lower lobe. Correlate for pneumonia. Pulmonary infarct could be co nsidered as this is the area of pulmonary embolism. Atelectasis should be considered. 4. Scattered small nodules discussed above within the right lung. Neoplasm is not excluded. 5. Report was called to Dr. Hernandez by Dr. Mccallum by telephone at 1435 hours 06/29/2017
[2017-06-29] MEDS ORDERED: ACETAMINOPHEN TAB 325 MG TAB PO PRN (15:15)
[2017-06-29] MEDS ORDERED: NALOXONE 0.4 MG/ML 1 ML VIAL IV PRN (15:15)
[2017-06-29] MEDS ORDERED: IBUPROFEN 400 MG TAB PO PRN (15:15)
[2017-06-29] MEDS: SODIUM CHLORIDE 0.9% 1,000 ML IV SCH (15:28)
[2017-06-29] MEDS: HEPARIN SOD,PORK IN 0.45% NACL 25,000 UNIT in 0.45% NACL 1 500ML.BAG IV SCH (15:33)
[2017-06-29] MEDS: HYDROmorphone 0.5 MG/0.5 ML SYRINGE IVP PRN ×2 (16:02→21:14)
[2017-06-29] MEDS: CYCLOBENZAPRINE 10 MG TAB PO SCH (21:14)
--- NOTE | 2017-06-29 22:41 | P.HPIM ---
History of Present Illness H&P Date: 06/29/17 Chief Complaint: chest pain Patient is a 61-year-old male with a known history of DVT 5 years ago, recently diagnosed pulmonary embolism status post hernia repair surgery, currently stopped taking anticoagulations and off for 1 month presents for evaluation of right lateral chest pain, cough and hemoptysis. Patient is a current every day smoker. He has a long history of tobacco use. States he's had a cough which is productive of blood tinged mucus over the past several days. He's also had worsening right lateral chest pain which is sharp and worse with deep inspiration. Denies fever or chills. Denies URI symptoms. Denies abdominal pain nausea or vomiting. He was previously on anticoagulation but has been off for several months. Patient previously had left lateral chest pain. Review of Systems Constitutional: Patient denies any fever or chills . No generalized weakness or weight loss. Abdomen: Patient denied nausea vomiting and diarrhea and abdominal pain. Cardiovascular: Patient denies any chest pain or short of breath no palpitations. Respiratory: Cough with left lateral chest pain and pleuritic pain. And shortness of breath Neurologic: Patient denied any numbness or tingling headache. Musculoskeletal: Patient denies any complaints of joint swelling or deformity. Skin: Negative Psychiatric: Negative Endocrine: No heat or cold intolerance. No recent weight gain. Genitourinary: No dysuria or hematuria. All other 14 point ROS negative except the above Past Medical History Past Medical History: Deep Vein Thrombosis (DVT), Hypertension Additional Past Medical History / Comment(s): BORN W/Vision impairment (R) eye, DVT in the LLE 5 years ago, alcoholism, HTN, COPD, chronic back pain History of Any Multi-Drug Resistant Organisms: None Reported Past Surgical History: Hernia Repair Additional Past Surgical History / Comment(s): VALENTINO inguinal hernia repair. Past Anesthesia/Blood Transfusion Reactions: No Reported Reaction Smoking Status: Current every day smoker - Past Family History Mother Family Medical History: Myocardial Infarction ([place]) Father Family Medical History: Hypertension Medications and Allergies Home Medications Medication Instructions Recorded Confirmed Type Orphenadrine [Norflex] 100 mg PO Q12H #10 tablet.er 06/25/17 06/29/17 Rx amLODIPine BESYLATE/BENAZEPRIL 1 tab PO BID 06/29/17 06/29/17 History [amLODIPine BESYLATE/BENAZEPRIL 5-20 mg] Allergies Allergy/AdvReac Type Severity Reaction Status Date / Time No Known Allergies Allergy Verified 06/29/17 13:11 Physical Exam Vitals: Vital Signs Temp Pulse Pulse Resp BP BP Pulse Ox 06/29/17 17:43 97 F L 90 16 132/74 95 06/29/17 17:15 98.2 F 06/29/17 16:35 89 16 141/81 96 06/29/17 15:04 99 22 125/68 97 06/29/17 13:39 94 06/29/17 13:32 88 06/29/17 12:30 98.5 F 95 20 138/64 98 Intake and Output 06/29/17 06/29/17 06/29/17 06:59 14:59 22:59 Other: Voiding Method Urinal Weight 63.503 kg Patient Weight 06/30/17 06:59 Weight 63.503 kg PHYSICAL EXAMINATION: Patient is lying in the bed comfortably, mild distress, awake alert and oriented.. HEENT: Normocephalic. Neck is supple. Pupils reactive. Nostrils clear. Oral cavity is moist. Ears reveal no drainage. Neck reveals no JVD, carotid bruits, or thyromegaly. CHEST EXAMINATION: Trachea is central. Symmetrical expansion. Diminished breath sounds bilateral basilar. CARDIAC: Normal S1, S2 with no gallops. No murmurs ABDOMEN: Soft. Bowel sounds normal. No organomegaly. No abdominal bruits. Extremities: reveal no edema. No clubbing or cyanosis Neurologically awake, alert, oriented x3 with well-coordinated movements. No focal deficits noted Skin: No rash or skin lesions. Psychiatric: Cooperative. Nonsuicidal Musculoskeletal: No joint swelling or deformity. Normal range of motion. Results CBC & Chem 7: 06/29/17 13:42 06/29/17 13:42 Labs: Abnormal Lab Results - Last 24 Hours (Table) 06/29/17 06/29/17 06/29/17 Range/Units 13:42 13:42 21:02 Hgb 12.6 L (13.0-17.5) gm/dL MCHC 30.1 L (31.0-37.0) g/dL APTT 43.9 H (22.0-30.0) sec BUN 26 H (9-20) mg/dL AST 73 H (17-59) U/L Albumin 3.4 L (3.5-5.0) g/dL Assessment and Plan Assessment: Acute right lower pulmonary embolism Chest pain and hemoptysis likely due to pulmonary embolism/infarction Scattered right lung nodules History of left-sided pulmonary embolism. Stopped anticoagulation after 1 month Hypertension Nicotine addiction Plan: Patient will be continued on IV heparin. Continue with pain management with Dilaudid. Patient was given a dose of Rocephin and azithromycin for possible pneumonia. We will consult pulmonary for evaluation. Further recommendations based on the clinical course. Time with Patient: Greater than 30
[2017-06-29] MEDS ORDERED: HEPARIN SODIUM,PORCINE 5,000 UNIT/ML 1 ML VIAL IV STA (23:35)
[2017-06-30] MEDS: HYDROmorphone 0.5 MG/0.5 ML SYRINGE IVP PRN ×3 (03:23→20:45)
[2017-06-30 07:02] LABS: Basophils % (A) 0 %; Eosinophils % (A) 0 %; HCT 37.3 % (39.0-53.0); Hypochromasia Slight; Lymphocytes % (A) 13 %; MCH 27.2 pg (25.0-35.0); MCHC 29.4 g/dL (31.0-37.0); MCV 92.7 fL (80.0-100.0); Mean Platelet Volume 7.3; Monocytes # (A) 0.5 k/uL (0-1.0); Monocytes % (A) 6 %; Neutrophils # (A) 6.6 k/uL (1.3-7.7); Neutrophils % (A) 80 %; Platelet Count 342 k/uL (150-450); RBC 4.03 m/uL (4.30-5.90); RDW 12.8 % (11.5-15.5); WBC 8.2 k/uL (3.8-10.6)
[2017-06-30] MEDS: amLODIPine 5 MG TAB PO SCH ×2 (08:16→20:42)
[2017-06-30] MEDS: CYCLOBENZAPRINE 10 MG TAB PO SCH ×2 (08:16→20:42)
[2017-06-30] MEDS: LISINOPRIL 20 MG TAB PO SCH ×2 (08:16→20:42)
[2017-06-30] MEDS: HEPARIN SOD,PORK IN 0.45% NACL 25,000 UNIT in 0.45% NACL 1 500ML.BAG IV SCH (11:10)
--- NOTE | 2017-06-30 13:56 | P.CNPUL ---
History of Present Illness Consult date: 06/30/17 Reason for consult: dyspnea, hypoxemia, pulmonary embolism, abnormal CXR/CT Chief complaint: Shortness of breath History of present illness: Consult dated 06/30/2017 This is a 61-year-old male with a history of hypertension. The patient presents to the emergency department complaining of shortness of breath right lateral chest pain which is pleuritic in nature and hemoptysis. His been going on for a couple days or so prior to admission. His a very interesting history in that he had a DVT of the right lower extremity about 5 years ago. At that time he took blood thinners for a short period of time. More recently mid 2016 , the patient apparently presented with shortness of breath was found to have a left lower lobe pulmonary embolism. He apparently was treated for at least 6 months and maybe longer. Anyway, the patient stopped going to the lung doctor he tells us with my partner because he states that he had too many doctors. He nothing against my partner but he was just being on in dated with various opinions and he just felt like he didn't need to go. His primary care physician is Dr. Trinidad. The patient had a chest x-ray and also had a CTA [facility] which did reveal a blood clot in the right lower lobe pulmonary artery. His presentation on this admission included primarily that of pulmonary infarction. He had a pleuritic pain on the right lateral chest significant computed tomography scan hemoptysis and shortness of breath. This clot seems to be unprovoked. It raises suspected that he might have a primary hypercoagulable state. If not previously evaluated, it should be. The previous clot in the lung secondary to hernia repair. The first DVT 5 years ago was apparently unprovoked. Review of Systems A 12 point review of system is positive for shortness of breath and pleuritic chest pain in the right chest as well as hemoptysis. Past Medical History Past Medical History: Deep Vein Thrombosis (DVT), Hypertension Additional Past Medical History / Comment(s): BORN W/Vision impairment (R) eye, DVT in the LLE 5 years ago, alcoholism, HTN, COPD, chronic back pain History of Any Multi-Drug Resistant Organisms: None Reported Past Surgical History: Hernia Repair Additional Past Surgical History / Comment(s): VALENTINO inguinal hernia repair. Past Anesthesia/Blood Transfusion Reactions: No Reported Reaction Smoking Status: Current every day smoker - Past Family History Mother Family Medical History: Myocardial Infarction ([place]) Father Family Medical History: Hypertension Medications and Allergies Home Medications Medication Instructions Recorded Confirmed Type Orphenadrine [Norflex] 100 mg PO Q12H #10 tablet.er 06/25/17 06/29/17 Rx amLODIPine BESYLATE/BENAZEPRIL 1 tab PO BID 06/29/17 06/29/17 History [amLODIPine BESYLATE/BENAZEPRIL 5-20 mg] Allergies Allergy/AdvReac Type Severity Reaction Status Date / Time No Known Allergies Allergy Verified 06/29/17 13:11 Physical Exam Osteopathic Statement: *. No significant issues noted on an osteopathic structural exam other than those noted in the History and Physical/Consult. Vitals: Vital Signs Temp Pulse Pulse Pulse Resp BP BP 06/30/17 11:17 83 16 06/30/17 11:07 83 16 141/82 06/30/17 08:00 97.1 F L 85 16 122/73 06/30/17 04:00 79 16 126/56 06/30/17 00:00 97.4 F L 90 74 16 108/70 06/29/17 20:00 97.9 F 90 18 131/70 06/29/17 17:43 97 F L 90 16 132/74 06/29/17 17:15 98.2 F 06/29/17 16:35 89 16 141/81 06/29/17 15:04 99 22 125/68 Pulse Ox 06/30/17 11:17 06/30/17 11:07 96 06/30/17 08:00 95 06/30/17 04:00 97 06/30/17 00:00 97 06/29/17 20:00 97 06/29/17 17:43 95 06/29/17 17:15 06/29/17 16:35 96 06/29/17 15:04 97 Intake and Output 06/29/17 06/30/17 06/30/17 22:59 06:59 14:59 Intake Total 182.88 555.063 Output Total 675 Balance -492.12 555.063 Intake: Intake, IV Titration 182.88 315.063 Amount Heparin Sod,Pork in 0.45% 182.88 295.063 NaCl 25,000 unit In 0.45 % NaCl 1 500ml.bag @ 18 UNITS/KG/HR 22.86 mls/hr IV .[id number] [facility] Rx#: [id number] Sodium Chloride 0.9% 1, 20 000 ml @ 20 mls/hr IV . Q24H [facility] Rx#:[id number] Oral 240 Output: Urine 675 Other: Voiding Method Urinal Urinal Weight 59.1 kg No acute distress, oriented 3. Nasal O2 in place HEENT examination is grossly unremarkable. Mucous membranes are moist. No oral lesions. Neck supple. Full range of motion. No adenopathy thyromegaly or neck vein distention. Cardiovascular examination reveals regular rhythm rate. S1-S2 normal. No S3 or S4. No discernible murmur noted. Lungs reveal scattered rhonchi at the right base. He has pain on deep breathing. Is pleuritic in nature. No wheezes. No crackles. The left lung is clear.. Abdomen soft bowel sounds are heard. No masses or tenderness. Extremities are intact. No cyanosis clubbing or edema. Skin is without rash or lesion. Neurologic examination is brief but nonfocal. Results - Laboratory Findings CBC and BMP: 06/30/17 05:58 06/29/17 13:42 PT/INR, D-dimer PT 9.4 sec (9.0-12.0) 06/29/17 13:42 INR 0.9 (<1.2) 06/29/17 13:42 Abnormal lab findings: Abnormal Labs 06/29/17 06/29/17 06/29/17 13:42 13:42 21:02 RBC Hgb 12.6 L Hct MCHC 30.1 L APTT 43.9 H BUN 26 H AST 73 H Albumin 3.4 L 06/30/17 06/30/17 05:58 05:58 RBC 4.03 L Hgb 11.0 L Hct 37.3 L MCHC 29.4 L APTT 64.2 H BUN AST Albumin - Diagnostic Findings Chest x-ray: image reviewed CT scan - chest: image reviewed (Chest x-ray and computed tomography scan of the chest labs and medications are all reviewed.) Assessment and Plan Assessment: Assessment Pulmonary infarction, right lower lobe Previous history of pulmonary embolism, left lower lobe, September 2016 Previous history of DVT, 5 years ago, right lower extremity History of hypertension Rule out primary hypercoagulable state Plan: Plan dated 04/29/2018 The patient is currently on IV heparin. The patient should be transitioned to the factor X a inhibitor that he was on before. The patient should be treated for at least 1 year and maybe longer. He should be seen by hematology and screen for a primary hypercoagulable state. This clot seems be unprovoked. He presents this time with pulmonary infarction. The patient would benefit from a small amount of prednisone as well as a nonsteroid anti-inflammatory drug. We' ll continue to follow. Time with Patient: Greater than 30
[2017-06-30] MEDS: methylPREDNISolone 4 MG TAB TAPER PO SCH (15:51)
[2017-06-30] MEDS: SODIUM CHLORIDE 0.9% 1,000 ML IV SCH (15:53)
[2017-07-01 07:09] LABS: Basophils % (A) 0 %; Eosinophils % (A) 0 %; HCT 37.3 % (39.0-53.0); HGB 10.9 gm/dL (13.0-17.5); Hypochromasia Slight; Lymphocytes % (A) 21 %; MCH 26.6 pg (25.0-35.0); MCHC 29.2 g/dL (31.0-37.0); MCV 91.1 fL (80.0-100.0); Mean Platelet Volume 7.1; Monocytes # (A) 0.6 k/uL (0-1.0); Monocytes % (A) 7 %; Neutrophils # (A) 6.6 k/uL (1.3-7.7); Neutrophils % (A) 71 %; Platelet Count 393 k/uL (150-450); RBC 4.09 m/uL (4.30-5.90); RDW 12.8 % (11.5-15.5); WBC 9.4 k/uL (3.8-10.6)
[2017-07-01 07:34] VITALS: RESP 16
[2017-07-01] MEDS: methylPREDNISolone 4 MG TAB TAPER PO SCH (07:35)
[2017-07-01] MEDS: APIXABAN 5 MG TAB PO SCH ×2 (07:35→17:01)
[2017-07-01] MEDS: amLODIPine 5 MG TAB PO SCH (07:35)
[2017-07-01] MEDS: LISINOPRIL 20 MG TAB PO SCH (07:35)
[2017-07-01] MEDS: CYCLOBENZAPRINE 10 MG TAB PO SCH (07:35)
--- NOTE | 2017-07-01 11:58 | P.PN ---
Subjective Progress Note Date: 07/01/17 Principal diagnosis: Pulmonary embolism Progress note dated 07/01/2017 This is a 61-year-old male who I saw yesterday in consultation. The patient developed a pulmonary most him/pulmonary infarction, right lower lobe. He has a previous history of pulmonary most him on the left lower lobe back in September 2016 and also previous history of DVT in the right lower semis some 5 years ago. He has a history of hypertension and possibly has a primary hypercoagulable state. One of these 3 events was provoked. Anyway, the patient is doing much better today. Feeling much better. The pain has resolved. He came with complaints of shortness of breath and right-sided chest pain and hemoptysis. The pain and hemoptysis has resolved. He is not short of breath. He would like to be discharged home. Chest x-rays CAT scans labs and medications all been reviewed. Objective - Vital Signs Vital signs: Vital Signs Temp 98.3 F 07/01/17 07:30 Pulse 69 07/01/17 11:15 Resp 16 07/01/17 11:15 BP 132/74 07/01/17 11:15 Pulse Ox 96 07/01/17 11:15 Intake & Output 06/30/17 07/01/17 07/01/17 18:59 06:59 18:59 Intake Total 915.063 260 Balance 915.063 260 Weight 57.5 kg Intake: Intake, IV Titration 315.063 20 Amount Heparin Sod,Pork in 0.45% 295.063 NaCl 25,000 unit In 0.45 % NaCl 1 500ml.bag @ 18 UNITS/KG/HR 22.86 mls/hr IV .[id number] [facility] Rx#: [id number] Sodium Chloride 0.9% 1, 20 20 000 ml @ 20 mls/hr IV . Q24H [facility] Rx#:[id number] Oral 600 240 Other: Voiding Method Urinal # Voids 2 200 - Exam No acute distress, oriented 3. Not requiring any supplemental oxygen. HEENT examination is grossly unremarkable. Mucous membranes are moist. No oral lesions. Neck supple. Full range of motion. No adenopathy thyromegaly or neck vein distention. Cardiovascular examination reveals regular rhythm rate. S1-S2 normal. No S3 or S4. No discernible murmur noted. Lungs reveal mostly clear breath sounds. There is some very mild rhonchi at the right base. No crackles or wheezes. Breath sounds are equal bilaterally. The patient can take a deep breath without pain.. Abdomen soft bowel sounds are heard. No masses or tenderness. Extremities are intact. No cyanosis clubbing or edema. Skin is without rash or lesion. Neurologic examination is brief but nonfocal. - Labs CBC & Chem 7: 07/01/17 06:13 06/29/17 13:42 Labs: Abnormal Lab Results - Last 24 Hours (Table) 07/01/17 07/01/17 Range/Units 06:13 06:13 RBC 4.09 L (4.30-5.90) m/uL Hgb 10.9 L (13.0-17.5) gm/dL Hct 37.3 L (39.0-53.0) % MCHC 29.2 L (31.0-37.0) g/dL APTT 44.0 H (22.0-30.0) sec Assessment and Plan Assessment: Assessment Pulmonary infarction, right lower lobe Previous history of pulmonary embolism, left lower lobe, September 2016 Previous history of DVT, 5 years ago, right lower extremity History of hypertension Rule out primary hypercoagulable state Plan: Plan dated 06/30/2017 The patient is currently on IV heparin. The patient should be transitioned to the factor X a inhibitor that he was on before. The patient should be treated for at least 1 year and maybe longer. He should be seen by hematology and screen for a primary hypercoagulable state. This clot seems be unprovoked. He presents this time with pulmonary infarction. The patient would benefit from a small amount of prednisone as well as a nonsteroid anti-inflammatory drug. We' ll continue to follow. Plan dated 07/01/2017 The patient is currently on IV heparin and can be transitioned to the factor X a inhibitor that he was on before. The patient should be treated for at least 1 year and maybe longer. He does need follow-up with hematology to rule out a primary hypercoagulable state given the fact that he said one DVT in 2 pulmonary embolisms in the past. This most recent clot seems be unprovoked. His presentation on this admission was that of pulmonary infarction with the shortness of breath pleuritic chest pain hemoptysis. He is doing much better today. Recommendations are made. He promises to come back and see us in the office. Time with Patient: Less than 30
[2017-07-01] MEDS: HYDROmorphone 0.5 MG/0.5 ML SYRINGE IVP PRN (13:22)
[2017-07-01] MEDS ORDERED: HYDROmorphone 2 MG TAB PO PRN (14:51)
[2017-07-01 15:14] VITALS: BP 132/75; PULSE 82; TEMP 97.5
[2017-07-01] MEDS: SODIUM CHLORIDE 0.9% 1,000 ML IV SCH (15:15)
--- NOTE | 2017-07-01 17:39 | P.PN ---
Subjective Progress Note Date: 06/30/17 Principal diagnosis: Acute pulmonary embolism /infarction Patient is a 61-year-old male with a known history of DVT 5 years ago, recently diagnosed pulmonary embolism status post hernia repair surgery, currently stopped taking anticoagulations and off for 1 month presents for evaluation of right lateral chest pain, cough and hemoptysis. Patient is a current every day smoker. He has a long history of tobacco use. States he's had a cough which is productive of blood tinged mucus over the past several days. He's also had worsening right lateral chest pain which is sharp and worse with deep inspiration. Denies fever or chills. Denies URI symptoms. Denies abdominal pain nausea or vomiting. He was previously on anticoagulation but has been off for several months. Patient previously had left lateral chest pain. 06/30/2017 Patient did have improved chest pain. Heparin drip has been discontinued and changed to oral anticoagulants. Pulmonary is following. Patient really to follow with oncology/hematology due to unprovoked PE this time. Otherwise no fever no chills. No nausea vomiting or abdominal pain. No other acute overnight issues. Pulmonary has seen the patient. Current medications reviewed Objective - Vital Signs Vital signs: Vital Signs Temp 97.6 F 06/30/17 20:00 Pulse 79 06/30/17 20:00 Resp 18 06/30/17 20:00 BP 130/77 06/30/17 20:00 Pulse Ox 96 06/30/17 20:00 Intake & Output 06/30/17 06/30/17 07/01/17 06:59 18:59 06:59 Intake Total 182.88 915.063 Output Total 675 Balance -492.12 915.063 Weight 59.1 kg Intake: Intake, IV Titration 182.88 315.063 Amount Heparin Sod,Pork in 0.45% 182.88 295.063 NaCl 25,000 unit In 0.45 % NaCl 1 500ml.bag @ 18 UNITS/KG/HR 22.86 mls/hr IV .[id number] [facility] Rx#: [id number] Sodium Chloride 0.9% 1, 20 000 ml @ 20 mls/hr IV . Q24H [facility] Rx#:[id number] Oral 600 Output: Urine 675 Other: Voiding Method Urinal Urinal # Voids 2 - Exam PHYSICAL EXAMINATION: Patient is lying in the bed comfortably, no acute distress, awake alert and oriented.. HEENT: Normocephalic. Neck is supple. Pupils reactive. Nostrils clear. Oral cavity is moist. Ears reveal no drainage. Neck reveals no JVD, carotid bruits, or thyromegaly. CHEST EXAMINATION: Trachea is central. Symmetrical expansion. Minimal right basilar crackles otherwise clear to auscultation and percussion. CARDIAC: Normal S1, S2 with no gallops. No murmurs ABDOMEN: Soft. Bowel sounds normal. No organomegaly. No abdominal bruits. Extremities: reveal no edema. No clubbing or cyanosis Neurologically awake, alert, oriented x3 with well-coordinated movements. No focal deficits noted Skin: No rash or skin lesions. Psychiatric: Coperative. Nonsuicidal Musculoskeletal: No joint swelling or deformity. Normal range of motion. - Labs CBC & Chem 7: 07/01/17 06:13 06/29/17 13:42 Labs: Abnormal Lab Results - Last 24 Hours (Table) 06/30/17 06/30/17 Range/Units 05:58 05:58 RBC 4.03 L (4.30-5.90) m/uL Hgb 11.0 L (13.0-17.5) gm/dL Hct 37.3 L (39.0-53.0) % MCHC 29.4 L (31.0-37.0) g/dL APTT 64.2 H (22.0-30.0) sec Assessment and Plan Assessment: Acute right lower pulmonary embolism." Unprovoked Chest pain and hemoptysis likely due to pulmonary embolism/infarction Scattered right lung nodules History of left-sided pulmonary embolism. Stopped anticoagulation after 1 month Hypertension Nicotine addiction Plan: Patient will be continued on IV heparin. Changed to oral anticoagulant. Continue with pain management with Dilaudid. Patient was given a dose of Rocephin and azithromycin for possible pneumonia. Antibiotics will be discontinued. Pulmonary is following. Patient will need to follow with oncology in the clinic for hypercoagulable workup. Further recommendations based on the clinical course. Time with Patient: Greater than 30
--- NOTE | 2017-07-01 17:42 | P.DS ---
Providers Date of admission: 06/29/17 15:15 Expected date of discharge: 07/01/17 Attending physician: Bola Hameed Consults: 06/29/17 22:36 Consult Physician Routine Consulting Provider: Ciro Nguyen Consult Reason/Comments: Scattered pulmonary nodules and pulmonary embolism Do you want consulting provider notified?: Yes, Notify in am 07/01/17 10:17 Consult Physician Routine Consulting Provider: Mauricio Hernandez Consult Reason/Comments: multiple PEs and DVTs, pulmonary nodules on CXR Do you want consulting provider notified?: Yes [facility]: Discharge diagnosis Acute right lower pulmonary embolism." Unprovoked Chest pain and hemoptysis likely due to pulmonary embolism/infarction Scattered right lung nodules History of left-sided pulmonary embolism. Stopped anticoagulation after 1 month History of DVT 5 years ago Hypertension Nicotine addiction Hospital course Patient is a 61-year-old male with a known history of DVT 5 years ago, recently diagnosed pulmonary embolism status post hernia repair surgery, currently stopped taking anticoagulations and off for 1 month presents for evaluation of right lateral chest pain, cough and hemoptysis. Patient is a current every day smoker. He has a long history of tobacco use. States he's had a cough which is productive of blood tinged mucus over the past several days. He's also had worsening right lateral chest pain which is sharp and worse with deep inspiration. Denies fever or chills. Denies URI symptoms. Denies abdominal pain nausea or vomiting. He was previously on anticoagulation but has been off for several months. Patient previously had left lateral chest pain. 06/30/2017 Patient did have improved chest pain. Heparin drip has been discontinued and changed to oral anticoagulants. Pulmonary is following. Patient really to follow with oncology/hematology due to unprovoked PE this time. Otherwise no fever no chills. No nausea vomiting or abdominal pain. No other acute overnight issues. Pulmonary has seen the patient. 07/01/2017 Patient denied any new complaints today. Chest pain is much improved. Patient requests to have Flexeril at home. Patient was continued on IV heparin. Changed to oral anticoagulant. Continued with pain management with Dilaudid and Flexeril. Patient was given a dose of Rocephin and azithromycin for possible pneumonia. Antibiotics were discontinued. Pulmonary has seen the patient. Patient will need to follow with oncology in the clinic for hypercoagulable workup. Follow-up information provided to the patient. Otherwise patient is stable to be discharged home. Smoking cessation has been counseled extensively.\\ Discharge physical examination was done and vitals reviewed Patient Condition at Discharge: Good Plan - Discharge Summary Discharge Rx Participant: Yes New Discharge Prescriptions: New Apixaban [Eliquis] 5 mg PO BID #60 tab methylPREDNISolone Dose Pack [Medrol Dose Pack] 4 mg PO DIRECTED #21 package Cyclobenzaprine [Flexeril] 10 mg PO Q12HR PRN #20 tab PRN Reason: Spasms Continue amLODIPine BESYLATE/BENAZEPRIL [amLODIPine BESYLATE/BENAZEPRIL 5-20 mg] 1 tab PO BID Discontinued Orphenadrine [Norflex] 100 mg PO Q12H #10 tablet.er Discharge Medication List amLODIPine BESYLATE/BENAZEPRIL [amLODIPine BESYLATE/BENAZEPRIL 5-20 mg] 1 tab PO BID 06/29/17 [History] Apixaban [Eliquis] 5 mg PO BID #60 tab 07/01/17 [Rx] Cyclobenzaprine [Flexeril] 10 mg PO Q12HR PRN #20 tab 07/01/17 [Rx] methylPREDNISolone Dose Pack [Medrol Dose Pack] 4 mg PO DIRECTED #21 package 07/01/17 [Rx] Follow up Appointment(s)/Referral(s): Mauricio Hernandez MD [STAFF PHYSICIAN] - 1 Week (Office currently closed, please call during normal business hours to make follow up appointment. ) Teo Trinidad MD [Primary Care Provider] - 1-2 days (Please call office during normal business hours to make follow up appointment) Rashaad Mead DO [Doctor of Osteopathic Medicine] - 1 Week (Office currently closed, please call during normal business hours to make follow up appointment.) Patient Instructions/Handouts: Pulmonary Embolism (DC) Discharge Disposition: HOME SELF-CARE
--- NOTE | 2017-07-02 01:02 | P.CONS ---
History of Present Illness - Reason for Consult Consult date: 07/01/17 - History of Present Illness Mr Bruno is a 61 yr old WM, initially seen in consult on 10/02/16 at [facility]. He had been admitted with left sided pleuritic chest pain x 1 day, associated with SOB. He was found to have a LLL PE. Dopplers also revealed a left GSV thrombus, close to the junction with the femoral vein. Provoking factors included a left inguinal hernia repair a week prior. He had groin and penile swelling, along with pain lasting about 3 days post op. He also had a h/o RLE DVT, unprovoked , about 7-8 years prior, treated with coumadin for about 6 mths. He was discharged on Eliquis and seen for his 1st OV on 10/24/16 He had a partial hypercoag w/u done at his PCP's which was negative. Gene mutation and APL Ab testing were not done. These were offered to the patient when seen in the office in 11/04 but he refused the same stating that he did not want to be drawn again if the results would not affect his own managment. Repeat doppler and US were scheduled in 05/06 for risk assessment, as the pt wanted to stop anticoagulation, after 6 mths. He did not get these done, and did not follow up. He stopped anticoagulation in 05/06. He tolerated Eliquis well. He came in to the ER with c/o cough productive of blood tinged sputum, as well as pleuritic type chest pain, over the past few days. He was found to have a new extensive PE, now on the right , on CTA. He was thus admitted and started on IV heparin. Consult was placed for further evaluation. Review of Systems Constitutional: Reports chronic pain Eyes: denies blurred vision, denies pain Ears: deny: decreased hearing, ear discharge, earache, tinnitus Ears, nose, mouth and throat: Denies headache, Denies sore throat Cardiovascular: Reports chest pain, Reports dyspnea on exertion, Reports palpitations Respiratory: Reports dyspnea Gastrointestinal: Denies abdominal pain, Denies diarrhea, Denies nausea, Denies vomiting Genitourinary: Reports as per HPI Musculoskeletal: Denies myalgias Integumentary: Denies pruritus, Denies rash Neurological: Denies numbness, Denies weakness Psychiatric: Denies anxiety, Denies depression Endocrine: Denies fatigue, Denies weight change Hematologic/Lymphatic: Reports thrombophilia Past Medical History Past Medical History: Deep Vein Thrombosis (DVT), Hypertension Additional Past Medical History / Comment(s): BORN W/Vision impairment (R) eye, DVT in the LLE 5 years ago, alcoholism, HTN, COPD, chronic back pain History of Any Multi-Drug Resistant Organisms: None Reported Past Surgical History: Hernia Repair Additional Past Surgical History / Comment(s): VALENTINO inguinal hernia repair. Past Anesthesia/Blood Transfusion Reactions: No Reported Reaction Smoking Status: Current every day smoker - Past Family History Mother Family Medical History: Myocardial Infarction ([place]) Father Family Medical History: Hypertension Medications and Allergies Home Medications Medication Instructions Recorded Confirmed Type amLODIPine BESYLATE/BENAZEPRIL 1 tab PO BID 06/29/17 06/29/17 History [amLODIPine BESYLATE/BENAZEPRIL 5-20 mg] Apixaban [Eliquis] 5 mg PO BID #60 tab 07/01/17 Rx Cyclobenzaprine [Flexeril] 10 mg PO Q12HR PRN #20 tab 07/01/17 Rx methylPREDNISolone Dose Pack 4 mg PO DIRECTED #21 package 07/01/17 Rx [Medrol Dose Pack] Allergies Allergy/AdvReac Type Severity Reaction Status Date / Time No Known Allergies Allergy Verified 06/29/17 13:11 Physical Exam Vitals: Vital Signs Temp Pulse Resp BP Pulse Ox 07/01/17 15:30 82 16 07/01/17 15:14 97.5 F L 82 16 132/75 96 07/01/17 11:59 69 16 07/01/17 11:15 69 16 132/74 96 07/01/17 07:40 75 16 07/01/17 07:30 98.3 F 75 16 135/77 94 L 07/01/17 04:00 97.3 F L 70 20 127/67 97 07/01/17 00:00 97.2 F L 75 19 133/76 96 Intake and Output 07/01/17 07/01/17 07/01/17 06:59 14:59 22:59 Intake Total 500 Balance 500 Intake: Intake, IV Titration 20 Amount Sodium Chloride 0.9% 1, 20 000 ml @ 20 mls/hr IV . Q24H [facility] Rx#:[id number] Oral 480 Other: Voiding Method Urinal # Voids 200 1 Weight 57.5 kg - Constitutional General appearance: no acute distress - EENT Eyes: EOMI, PERRLA ENT: hearing grossly normal, normal oropharynx - Neck Neck: no lymphadenopathy Thyroid: bilateral: normal size - Respiratory Respiratory: bilateral: CTA - Cardiovascular Rhythm: regular Heart sounds: normal: S1, S2 - Gastrointestinal General gastrointestinal: normal bowel sounds, soft - Integumentary Integumentary: normal - Neurologic Neurologic: CNII-XII intact - Musculoskeletal Musculoskeletal: generalized weakness, strength equal bilaterally - Psychiatric Psychiatric: A&O x's 3, appropriate affect Results CBC & Chem 7: 07/01/17 06:13 06/29/17 13:42 Labs: Abnormal Lab Results - Last 24 Hours (Table) 07/01/17 07/01/17 Range/Units 06:13 06:13 RBC 4.09 L (4.30-5.90) m/uL Hgb 10.9 L (13.0-17.5) gm/dL Hct 37.3 L (39.0-53.0) % MCHC 29.2 L (31.0-37.0) g/dL APTT 44.0 H (22.0-30.0) sec Chest x-ray: report reviewed CT scan - chest: report reviewed Assessment and Plan (1) Pulmonary embolism and infarction Narrative/Plan: this is a new occurrence, on the contralateral side from the previous one. The patient denies any provoking factors for this episode. As noted, he had stopped anticoagulation around 05/06. However as recommended by myself, he had not had repeat imaging studies done to try to assess risk. Based on his physical presentation, lifelong antiplatelet correlation would be recommended. He tolerated liquids quite well previously, and can be placed back on that or another drug in the same class. As he is fairly asymptomatic at this time, once oral medication start starts, heparin can be switched off, and he can be discharged, from our standpoint if felt to be appropriate by the admitting service I again discussed completion of testing for hypercoagulable states. As noted previously this will not affect his management but may have implications for this family. Previously the patient was not interested. This time he stated that he would consider following up in the office to get those tests completed. Status: Acute Code(s): I26.99 - OTHER PULMONARY EMBOLISM WITHOUT ACUTE COR PULMONALE SNOMED Code(s): 6185860669515 (2) Lung nodules Narrative/Plan: the findings in this regard are not very impressive. The patient does have some bilateral scarring from COPD with one nodule being 0.5 cm. The other area , which is more prominent is in the right lower lung and could represent consolidation or infarct rather than a nodule. Therefore repeat scans in a few months would be reasonable approach. Status: Acute Code(s): R91.8 - OTHER NONSPECIFIC ABNORMAL FINDING OF LUNG FIELD SNOMED Code(s): 145460056
== END 2017-07-01 17:23 | disposition home or self-care (01) | DRG 176 ==
LOC: EC 12:27 → 6SEL 15:15
PROVIDERS: ADMIT Internal Medicine; ATTEND Internal Medicine
DX: I26.99 Other pulmonary embolism without acute cor pulmonale (principal); F10.20 Alcohol dependence, uncomplicated; F17.200 Nicotine dependence, unspecified, uncomplicated; H54.7 Unspecified visual loss; I10 Essential (primary) hypertension; J44.9 Chronic obstructive pulmonary disease, unspecified; R09.02 Hypoxemia; G89.29 Other chronic pain; M54.9 Dorsalgia, unspecified; R91.8 Other nonspecific abnormal finding of lung field; Z86.718 Personal history of other venous thrombosis and embolism; Z86.711 Personal history of pulmonary embolism; Z82.49 Family history of ischemic heart disease and other diseases of the circulatory system
CPT/HCPCS: 36415; 71046; 71275; 80053; 82550; 82553; 83735; 84484; 85025; 85610; 85730; 93005; 94640; 96361; 96365; 96366; 96368; 96375; 96376; 99291

== ENCOUNTER → 2017-08-29 | Outpatient (CLI) | payer BC ==
--- NOTE | 2017-08-29 16:59 | CT ---
EXAMINATION TYPE: CT angio chest DATE OF EXAM: 08/29/2017 4:36 PM COMPARISON: June 29, 2017 HISTORY: Follow up scan per patient CT DLP: 167 mGycm Automated exposure control for dose reduction was used. CONTRAST: CTA scan of the thorax is performed with IV Contrast, patient injected with 100 mL of Isovue 370, pul monary embolism protocol. There are 3-D post processed images.. FINDINGS: There is diffuse pulmonary emphysema. There is some mild reticular nodular infiltrate at the right po sterior lung base. There is some mild reticular density in the right upper lobe consistent with scarr ing. There is no pleural effusion. Heart size is normal. There is no pericardial effusion. I see no f illing defects in the pulmonary arteries. There are multiple enlarged mediastinal lymph nodes. These measure up to 2 cm. There are a few bronchial lymph nodes up to 1 cm. There is no evidence of thoraci c aortic aneurysm or dissection. I see no bony destructive process. IMPRESSION: NO EVIDENCE OF PULMONARY EMBOLISM. THERE IS CLEARING OF THE MULTIPLE PULMONARY EMBOLI COMPARED TO OLD EXAM. THERE IS MEDIASTINAL AND BRONCHIAL ADENOPATHY THAT IS INCREASED COMPARED TO LAST EXAM. FOLLOW- UP IS RECOMMENDED. THERE IS SIGNIFICANT CLEARING OF THE INFILTRATE AT THE RIGHT LUNG BASE COMPARED TO LAST EXAM. I DO NO T SEE EVIDENCE OF A PULMONARY MASS.
== END | disposition home or self-care (01) ==
LOC: RADCTMAIN 15:48
PROVIDERS: ATTEND Internal Medicine Critical Care Medicine
DX: R59.0 Localized enlarged lymph nodes (principal); R91.8 Other nonspecific abnormal finding of lung field
CPT/HCPCS: 71275; Q9967

== ENCOUNTER 2018-10-12 10:11 | Emergency (ER) | payer BC ==
[2018-10-12 10:20] VITALS: BP 123/77; PULSE 94; RESP 16; TEMP 98.6
[2018-10-12] MEDS ORDERED: FAMOTIDINE 20 MG TAB PO STA (11:21)
[2018-10-12] MEDS ORDERED: methylPREDNISolone SOD SUCCI 125 MG/2 ML VIAL IM ONE (11:21)
[2018-10-12] MEDS ORDERED: diphenhydrAMINE 50 MG CAP PO STA (11:22)
--- NOTE | 2018-10-12 11:27 | ED ---
Skin/Abscess/FB HPI - General Chief complaint: Skin/Abscess/Foreign Body Stated complaint: Rash all over/jaw swollen Time Seen by Provider: 10/12/18 10:32 Source: patient, RN notes reviewed, old records reviewed Mode of arrival: ambulatory Limitations: no limitations - History of Present Illness Initial comments: is a 62-year-old male with a history of pruritic urticarial-like rash for the past 3 days. He denies any new exposures. He reports he woke up today felt like his hands are swollen hands and lips swelling. He states after taking Nicholas adryl at subsided. Patient reports that he wasn't taking Benadryl intermittently for the past few days. Patient denies any chest pain or shortness of breath. He denies any tongue swelling difficult swallowing. - Related Data Home Medications Medication Instructions Recorded Confirmed amLODIPine BESYLATE/BENAZEPRIL 1 tab PO BID 06/29/17 10/12/18 [amLODIPine BESYLATE/BENAZEPRIL 5-20 MG] diphenhydrAMINE HCL [Benadryl] 25 mg PO TID PRN 10/12/18 10/12/18 Previous Rx's Medication Instructions Recorded Apixaban [Eliquis] 5 mg PO BID #60 tab 07/01/17 Famotidine [Pepcid] 20 mg PO BID #20 tablet 10/12/18 predniSONE 10 mg PO DAILY #15 tab 10/12/18 Allergies Allergy/AdvReac Type Severity Reaction Status Date / Time No Known Allergies Allergy Verified 10/12/18 10:36 Review of Systems ROS Statement: Those systems with pertinent positive or pertinent negative responses have been documented in the HPI. ROS Other: All systems not noted in ROS Statement are negative. Past Medical History Past Medical History: Deep Vein Thrombosis (DVT), Hypertension Additional Past Medical History / Comment(s): BORN W/Vision impairment (R) eye, DVT in the LLE 5 years ago, alcoholism, HTN, COPD, chronic back pain History of Any Multi-Drug Resistant Organisms: None Reported Past Surgical History: Hernia Repair Additional Past Surgical History / Comment(s): VALENTINO inguinal hernia repair. Past Anesthesia/Blood Transfusion Reactions: No Reported Reaction Past Psychological History: No Psychological Hx Reported Smoking Status: Current every day smoker - Past Family History Mother Family Medical History: Myocardial Infarction ([place]) Father Family Medical History: Hypertension General Exam - General Exam Comments Initial Comments: 62-year-old male. Alert and oriented. No significant distress. Limitations: no limitations General appearance: alert, in no apparent distress Head exam: Present: atraumatic, normocephalic, normal inspection Eye exam: Present: normal appearance, PERRL, EOMI. Absent: scleral icterus, conjunctival injection, periorbital swelling ENT exam: Present: normal exam, mucous membranes moist Neck exam: Present: normal inspection. Absent: tenderness, meningismus, lymphadenopathy Respiratory exam: Present: normal lung sounds bilaterally. Absent: respiratory distress, wheezes, rales, rhonchi, stridor Cardiovascular Exam: Present: regular rate, normal rhythm, normal heart sounds. Absent: systolic murmur, diastolic murmur, rubs, gallop, clicks GI/Abdominal exam: Present: soft, normal bowel sounds. Absent: distended, tenderness, guarding, rebound, rigid Extremities exam: Present: normal inspection, full ROM, normal capillary refill. Absent: tenderness, pedal edema, joint swelling, calf tenderness Back exam: Present: normal inspection Neurological exam: Present: alert, oriented X3, CN II-XII intact Psychiatric exam: Present: normal affect, normal mood Skin exam: Present: warm, dry, intact, normal color, rash (Patient had urticaria over her legs chest arms.) Course Vital Signs 10/12/18 10:18 Temperature 98.6 F Pulse Rate 94 Respiratory 16 Rate Blood Pressure 123/77 O2 Sat by Pulse 98 Oximetry Medical Decision Making - Medical Decision Making 62-year-old male presents today with complaints of urticaria lip swelling was noted earlier this morning. He's had urticaria for the past 2 days. No new exposures. Patient was given IM Solu-Medrol. Other history is quickly well. Discussed that we'll start start the Patient for acute ALLERGIC reaction of unknown source with steroids and continuing Benadryl and Pepcid. Patient advised to follow up with his primary care doctor. Discussed if there is any return of lip swelling that he should return for recheck. All questions answered return parameters were discussed. Disposition Clinical Impression: Allergic reaction, Urticaria Disposition: HOME SELF-CARE Condition: Good Instructions (If sedation given, give patient instructions): Urticaria (ED) Additional Instructions: Patient advised to monitor for any worsening swelling difficulty breathing return to the ER for reevaluation. Patient should take the steroids as prescribed starting tomorrow. Patient should return to the emergency department if any alarming signs or symptoms occur. Follow-up with her primary care doctor next week. Prescriptions: Famotidine [Pepcid] 20 mg PO BID #20 tablet predniSONE 10 mg PO DAILY #15 tab Is patient prescribed a controlled substance at d/c from ED?: No Referrals: Luis Fernando Sneed MD [Primary Care Provider] - 1-2 days Time of Disposition: 11:26
== END 2018-10-12 11:50 | disposition home or self-care (01) ==
LOC: EC 10:11
DX: L50.0 Allergic urticaria (principal); I10 Essential (primary) hypertension; F17.200 Nicotine dependence, unspecified, uncomplicated; Z79.899 Other long term (current) drug therapy; Z86.718 Personal history of other venous thrombosis and embolism
CPT/HCPCS: 99283; 96372; J2930

== ENCOUNTER → 2018-11-01 | Outpatient (CLI) | payer BC ==
--- NOTE | 2018-11-03 18:14 | US ---
EXAMINATION TYPE: US venous doppler duplex LE RT DATE OF EXAM: 11/01/2018 6:07 PM COMPARISON: US bilateral 10/02/2016 CLINICAL HISTORY: Rt Lower Ext R22.1. SIDE PERFORMED: Right TECHNIQUE: The lower extremity deep venous system is examined utilizing real time linear array sonog frieda with graded compression, doppler sonography and color-flow sonography. VESSELS IMAGED: External Iliac Vein (EIV) Common Femoral Vein Deep Femoral Vein Greater Saphenous Vein * Femoral Vein Popliteal Vein Small Saphenous Vein * Proximal Calf Veins (* superficial vessels) Right Leg: Negative for DVT Grayscale, color doppler, spectral doppler imaging performed of the deep veins of the right lower ext remity. There is normal flow, compressibility, vascular waveforms. IMPRESSION: No ultrasound evidence for acute DVT in the right lower extremity.
== END | disposition home or self-care (01) ==
LOC: RADUSMAIN 17:48
PROVIDERS: ATTEND Internal Medicine
DX: R22.41 Localized swelling, mass and lump, right lower limb (principal)

== ENCOUNTER 2018-11-27 14:25 | Emergency (ER) | payer BC ==
[2018-11-27 14:34] VITALS: BP 178/88; PULSE 83; RESP 18; TEMP 98.2
--- NOTE | 2018-11-27 15:20 | XR ---
EXAMINATION TYPE: XR knee complete LT DATE OF EXAM: 11/27/2018 CLINICAL HISTORY: Left knee pain with no known injury TECHNIQUE: Three views of the left knee are obtained. COMPARISON: None. FINDINGS: There is no acute fracture/dislocation evident in left knee. There is tricompartmental patrick nt space narrowing and very small tricompartmental osteophytes. Extensor mechanism is grossly intact radiographically. Atherosclerosis of the femoral artery and its branches is seen. The overlying soft tissue appears unremarkable. IMPRESSION: There is no acute fracture or dislocation in the left knee. Mild to moderate tricompartm ental arthropathy.
--- NOTE | 2018-11-27 15:39 | ED ---
Lower Extremity Injury HPI - General Chief Complaint: Extremity Injury, Lower Stated Complaint: Leg Pain Time Seen by Provider: 11/27/18 14:42 Source: patient Mode of arrival: ambulatory Limitations: no limitations - History of Present Illness Initial Comments: Patient is a 63-year-old male presenting to the emergency Department with complaints of left knee pain that has been increasing over the last 3 days. Patient states he has had pain in his left knee for months now. Patient denies any falls or injuries. Patient states he works on his feet a lot and is having a hard time walking. Patient denies any fever, chills, swelling, redness. No other complaints at this time. - Related Data Home Medications Medication Instructions Recorded Confirmed amLODIPine BESYLATE/BENAZEPRIL 1 tab PO BID 06/29/17 10/12/18 [amLODIPine BESYLATE/BENAZEPRIL 5-20 MG] diphenhydrAMINE HCL [Benadryl] 25 mg PO TID PRN 10/12/18 10/12/18 Previous Rx's Medication Instructions Recorded Apixaban [Eliquis] 5 mg PO BID #60 tab 07/01/17 Famotidine [Pepcid] 20 mg PO BID #20 tablet 10/12/18 predniSONE 10 mg PO DAILY #15 tab 10/12/18 Allergies Allergy/AdvReac Type Severity Reaction Status Date / Time No Known Allergies Allergy Verified 11/27/18 14:34 Review of Systems ROS Statement: Those systems with pertinent positive or pertinent negative responses have been documented in the HPI. ROS Other: All systems not noted in ROS Statement are negative. Past Medical History Past Medical History: Deep Vein Thrombosis (DVT), Hypertension Additional Past Medical History / Comment(s): BORN W/Vision impairment (R) eye, DVT in the LLE 5 years ago, alcoholism, HTN, COPD, chronic back pain History of Any Multi-Drug Resistant Organisms: None Reported Past Surgical History: Hernia Repair Additional Past Surgical History / Comment(s): VALENTINO inguinal hernia repair. Past Anesthesia/Blood Transfusion Reactions: No Reported Reaction Past Psychological History: No Psychological Hx Reported Smoking Status: Current every day smoker - Past Family History Mother Family Medical History: Myocardial Infarction ([place]) Father Family Medical History: Hypertension General Exam - General Exam Comments Initial Comments: GENERAL: Well-appearing, well-nourished and in no acute distress. HEAD: Atraumatic, normocephalic. EYES: Pupils equal round and reactive to light, extraocular movements intact, sclera anicteric, conjunctiva are normal. ENT: TMs normal, nares patent, oropharynx clear without exudates. Moist mucous membranes. NECK: Normal range of motion, supple without lymphadenopathy or JVD. LUNGS: Breath sounds clear to auscultation bilaterally and equal. No wheezes rales or rhonchi. HEART: Regular rate and rhythm without murmurs, rubs or gallops. ABDOMEN: Soft, nontender, normoactive bowel sounds. No guarding, no rebound. No masses appreciated. : Deferred EXTREMITIES: Very minimal pain to the lateral aspect of the left knee. No pain anywhere else. No swelling, erythema, bruising. No tenderness in the left calf. NEUROLOGICAL: Cranial nerves II through XII grossly intact. Normal speech, normal gait. PSYCH: Normal mood, normal affect. SKIN: Warm, Dry, normal turgor, no rashes or lesions noted. Limitations: no limitations Course Vital Signs 11/27/18 14:32 Temperature 98.2 F Pulse Rate 83 Respiratory 18 Rate Blood Pressure 178/88 O2 Sat by Pulse 97 Oximetry Medical Decision Making - Medical Decision Making Patient is a 63-year-old male with complaints of left knee pain increasing over the last 3 days. Patient denies any trauma or injuries to the area patient has had chronic left knee pain. X-ray reveals no acute fractures or dislocations. There is some joint space narrowing of the lateral aspect. Patient will be given orthopedic referral and will continue with Tylenol for pain relief. Patient be discharged home. Patient is in agreement with this plan. Return parameters were discussed and patient verbalize understanding. Disposition Clinical Impression: Left knee pain Disposition: HOME SELF-CARE Condition: Stable Instructions (If sedation given, give patient instructions): Knee Pain (ED) Additional Instructions: Please return to the Emergency Department if symptoms worsen or any other concerns. Use ice and Tylenol for pain relief. Follow-up with Ortho as discussed. Is patient prescribed a controlled substance at d/c from ED?: No Referrals: Luis Fernando Sneed MD [Primary Care Provider] - 1-2 days Alfonso Daniels MD [STAFF PHYSICIAN] - 1-2 days
== END 2018-11-27 15:46 | disposition home or self-care (01) ==
LOC: EC 14:25
DX: M25.562 Pain in left knee (principal); I10 Essential (primary) hypertension; F17.200 Nicotine dependence, unspecified, uncomplicated; Z86.718 Personal history of other venous thrombosis and embolism; Z79.899 Other long term (current) drug therapy
CPT/HCPCS: 99283

== ENCOUNTER → 2018-11-27 | Outpatient (CLI) | payer BC ==
[2018-11-27 15:21] LABS: HCT 43.6 % (39.0-53.0); HGB 13.7 gm/dL (13.0-17.5); MCH 28.2 pg (25.0-35.0); MCHC 31.5 g/dL (31.0-37.0); MCV 89.7 fL (80.0-100.0); Mean Platelet Volume 6.3; Platelet Count 252 k/uL (150-450); RBC 4.86 m/uL (4.30-5.90); RDW 14.2 % (11.5-15.5); WBC 7.5 k/uL (3.8-10.6)
[2018-11-27 23:36] LABS: Folate, Serum 21.9 ng/mL
[2018-11-28 06:05] LABS: ALT 13 U/L (10-49); AST 26 U/L (14-35); African American GFR (CKD) 73.6 (60.0-200.0); Albumin/Globulin Ratio 1.48 (1.60-3.17); Alkaline Phosphatase 79 U/L (41-126); BUN/Creat Ratio 11.67 Ratio (12.00-20.00); Calcium 9.1 mg/dL (8.7-10.3); Carbon Dioxide 23.4 mmol/L (21.6-31.8); Chloride 109 mmol/L (96-109); Cholesterol 153 mg/dL (0-200); Globulin 2.5 g/dL (1.6-3.3); Glucose 79 mg/dL (70-110); Phosphorus 3.7 mg/dL (2.4-5.1); Potassium 4.7 mmol/L (3.5-5.5); Sodium 141 mmol/L (135-145); Total Bilirubin 0.5 mg/dL (0.3-1.2); Total Protein 6.2 g/dL (6.2-8.2); Triglycerides <50.0 mg/dL (0.0-149.0); VLDL Calculation 9.98 mg/dL (5.00-40.00)
== END | disposition home or self-care (01) ==
LOC: LABWHC1 14:17
PROVIDERS: ATTEND Nurse Practitioner Adult Health
DX: I10 Essential (primary) hypertension (principal); M54.6 Pain in thoracic spine; G25.81 Restless legs syndrome; Z86.711 Personal history of pulmonary embolism; Z79.01 Long term (current) use of anticoagulants
CPT/HCPCS: 36415; 80053; 80061; 82306; 82607; 82746; 83735; 84100; 84153; 84443; 85027

== ENCOUNTER 2019-03-04 18:29 | Inpatient (IN) | payer BC ==
[2019-03-04] MEDS ORDERED: ACETAMINOPHEN TAB 500 MG TAB PO STA (19:54)
[2019-03-04] MEDS ORDERED: IBUPROFEN 600 MG TAB PO STA (19:54)
[2019-03-04] MEDS ORDERED: SODIUM CHLORIDE 0.9% 1,000 ML IV STA ×2 (19:54)
[2019-03-04] MEDS ORDERED: SODIUM CHLORIDE 0.9% 500 ML 500 ML IV STA (19:54)
[2019-03-04] MEDS ORDERED: DIAZEPAM 5 MG/ML 2 ML INJ IVP STA (19:55)
--- NOTE | 2019-03-04 20:02 | ED ---
Fever HPI - General Chief Complaint: Fever Stated Complaint: Fever Time Seen by Provider: 03/04/19 19:34 Source: patient, RN notes reviewed, old records reviewed Mode of arrival: ambulatory Limitations: no limitations - History of Present Illness Initial Comments: This is a 63-year-old male the ER for evaluation patient is feeling well having some abdominal pain weakness with nausea. A few days of being unable to eat. Severe fever with sweating and chills. Patient is had persistent nausea vomiting 4 days fevers. Persistent with again with chills and sweats. No travel history or sick contacts no diarrhea. Left-sided abdominal pain. No prior history of surgical illness. No significant medical history aside from high blood pressure MD Complaint: fever, weakness Time: 04:00 Temperature Source: subjective Associated Symptoms: chills, rigors, myalgias, abdominal pain, nausea, vomiting Treatments Prior to Arrival: none - Related Data Home Medications Medication Instructions Recorded Confirmed amLODIPine BESYLATE/BENAZEPRIL 1 tab PO BID 06/29/17 03/04/19 [amLODIPine BESYLATE/BENAZEPRIL 5-20 MG] Aspirin EC [Ecotrin] 325 mg PO DAILY PRN 03/04/19 03/04/19 Gabapentin 600 mg PO TID 03/04/19 03/04/19 Previous Rx's Medication Instructions Recorded Apixaban [Eliquis] 5 mg PO BID #60 tab 07/01/17 Allergies Allergy/AdvReac Type Severity Reaction Status Date / Time No Known Allergies Allergy Verified 03/04/19 20:13 Review of Systems ROS Statement: Those systems with pertinent positive or pertinent negative responses have been documented in the HPI. ROS Other: All systems not noted in ROS Statement are negative. Past Medical History Past Medical History: Deep Vein Thrombosis (DVT), Hypertension Additional Past Medical History / Comment(s): BORN W/Vision impairment (R) eye, DVT in the LLE 5 years ago, alcoholism, HTN, COPD, chronic back pain History of Any Multi-Drug Resistant Organisms: None Reported Past Surgical History: Hernia Repair Additional Past Surgical History / Comment(s): VALENTINO inguinal hernia repair. Past Anesthesia/Blood Transfusion Reactions: No Reported Reaction Past Psychological History: No Psychological Hx Reported Smoking Status: Current every day smoker - Past Family History Mother Family Medical History: Myocardial Infarction ([place]) Father Family Medical History: Hypertension General Exam Limitations: no limitations General appearance: alert, in no apparent distress Head exam: Present: atraumatic, normocephalic, normal inspection Eye exam: Present: normal appearance, PERRL, EOMI. Absent: scleral icterus, conjunctival injection, periorbital swelling ENT exam: Present: normal exam, mucous membranes dry Neck exam: Present: normal inspection. Absent: tenderness, meningismus, lymphadenopathy Respiratory exam: Present: normal lung sounds bilaterally. Absent: respiratory distress, wheezes, rales, rhonchi, stridor Cardiovascular Exam: Present: normal rhythm, tachycardia, normal heart sounds. Absent: systolic murmur, diastolic murmur, rubs, gallop, clicks GI/Abdominal exam: Present: soft, tenderness (LLQ), normal bowel sounds. Absent: distended, guarding, rebound, rigid Extremities exam: Present: normal inspection, full ROM, normal capillary refill. Absent: tenderness, pedal edema, joint swelling, calf tenderness Back exam: Present: normal inspection Neurological exam: Present: alert, oriented X3, CN II-XII intact Psychiatric exam: Present: normal affect, normal mood Skin exam: Present: warm, dry, intact, normal color. Absent: rash Course Vital Signs 03/04/19 03/04/19 03/04/19 18:43 20:28 21:05 Temperature 102.8 F H 102.2 F H 102.7 F H Pulse Rate 128 H 112 H 98 Respiratory 24 19 18 Rate Blood Pressure 108/63 126/76 109/62 O2 Sat by Pulse 92 L 95 95 Oximetry 03/04/19 21:38 Temperature 101.7 F H Pulse Rate Respiratory Rate Blood Pressure O2 Sat by Pulse Oximetry - Reevaluation(s) Reevaluation #1: 03/04/19 21:13 Medical records reviewed Reevaluation #2: 03/04/19 21:13 Symptoms are significantly improving Reevaluation #3: 03/04/19 21:59 Patient rechecked in no acute distress no acute respiratory distress feeling better with fever control - Consultations Consultation #1: Spoke with sound Dr. Thurman is okay for admission Medical Decision Making - Medical Decision Making 83 male to be admitted for pneumonia positive fever, patient has right upper lobe pneumonia will admit for required pneumonia - Lab Data Result diagrams: 03/04/19 20:25 03/04/19 20:25 Lab Results 03/04/19 03/04/19 03/04/19 Range/Units 20:25 20:25 20:25 WBC 11.2 H (3.8-10.6) k/uL RBC 4.79 (4.30-5.90) m/uL Hgb 14.2 (13.0-17.5) gm/dL Hct 41.6 (39.0-53.0) % MCV 86.8 (80.0-100.0) fL MCH 29.6 (25.0-35.0) pg MCHC 34.1 (31.0-37.0) g/dL RDW 13.4 (11.5-15.5) % Plt Count 238 (150-450) k/uL Neutrophils % 88 % Lymphocytes % 4 % Monocytes % 5 % Eosinophils % 0 % Basophils % 2 % Neutrophils # 9.8 H (1.3-7.7) k/uL Lymphocytes # 0.4 L (1.0-4.8) k/uL Monocytes # 0.5 (0-1.0) k/uL Eosinophils # 0.0 (0-0.7) k/uL Basophils # 0.2 (0-0.2) k/uL Sodium 132 L (137-145) mmol/L Potassium 4.6 (3.5-5.1) mmol/L Chloride 100 (98-107) mmol/L Carbon Dioxide 22 (22-30) mmol/L Anion Gap 10 mmol/L BUN 35 H (9-20) mg/dL Creatinine 1.78 H (0.66-1.25) mg/dL Est GFR (CKD-EPI)AfAm 46 (>60 ml/min/1.73 sqM) Est GFR (CKD-EPI)NonAf 40 (>60 ml/min/1.73 sqM) Glucose 129 H (74-99) mg/dL Plasma Lactic Acid Nikolai 1.1 (0.7-2.0) mmol/L Calcium 8.6 (8.4-10.2) mg/dL Total Bilirubin 0.3 (0.2-1.3) mg/dL AST 76 H (17-59) U/L ALT 37 (21-72) U/L Alkaline Phosphatase 107 (38-126) U/L Total Protein 6.6 (6.3-8.2) g/dL Albumin 3.3 L (3.5-5.0) g/dL Urine Color Urine Appearance (Clear) Urine pH (5.0-8.0) Ur Specific [place] (1.001-1.035) Urine Protein (Negative) Urine Glucose (UA) (Negative) Urine Ketones (Negative) Urine Blood (Negative) Urine Nitrite (Negative) Urine Bilirubin (Negative) Urine Urobilinogen (<2.0) mg/dL Ur Leukocyte Esterase (Negative) Urine RBC (0-5) /hpf Urine WBC (0-5) /hpf Ur Squamous Epith Cells (0-4) /hpf Urine Mucus (None) /hpf Influenza Type A RNA (Not Detectd) Influenza Type B (PCR) (Not Detectd) 03/04/19 03/04/19 Range/Units 20:35 20:35 WBC (3.8-10.6) k/uL RBC (4.30-5.90) m/uL Hgb (13.0-17.5) gm/dL Hct (39.0-53.0) % MCV (80.0-100.0) fL MCH (25.0-35.0) pg MCHC (31.0-37.0) g/dL RDW (11.5-15.5) % Plt Count (150-450) k/uL Neutrophils % % Lymphocytes % % Monocytes % % Eosinophils % % Basophils % % Neutrophils # (1.3-7.7) k/uL Lymphocytes # (1.0-4.8) k/uL Monocytes # (0-1.0) k/uL Eosinophils # (0-0.7) k/uL Basophils # (0-0.2) k/uL Sodium (137-145) mmol/L Potassium (3.5-5.1) mmol/L Chloride (98-107) mmol/L Carbon Dioxide (22-30) mmol/L Anion Gap mmol/L BUN (9-20) mg/dL Creatinine (0.66-1.25) mg/dL Est GFR (CKD-EPI)AfAm (>60 ml/min/1.73 sqM) Est GFR (CKD-EPI)NonAf (>60 ml/min/1.73 sqM) Glucose (74-99) mg/dL Plasma Lactic Acid Nikolai (0.7-2.0) mmol/L Calcium (8.4-10.2) mg/dL Total Bilirubin (0.2-1.3) mg/dL AST (17-59) U/L ALT (21-72) U/L Alkaline Phosphatase (38-126) U/L Total Protein (6.3-8.2) g/dL Albumin (3.5-5.0) g/dL Urine Color Yellow Urine Appearance Cloudy (Clear) Urine pH 5.5 (5.0-8.0) Ur Specific [place] 1.023 (1.001-1.035) Urine Protein 2+ H (Negative) Urine Glucose (UA) Negative (Negative) Urine Ketones Negative (Negative) Urine Blood Small H (Negative) Urine Nitrite Negative (Negative) Urine Bilirubin Negative (Negative) Urine Urobilinogen <2.0 (<2.0) mg/dL Ur Leukocyte Esterase Negative (Negative) Urine RBC 2 (0-5) /hpf Urine WBC 1 (0-5) /hpf Ur Squamous Epith Cells <1 (0-4) /hpf Urine Mucus Rare H (None) /hpf Influenza Type A RNA Not Detected (Not Detectd) Influenza Type B (PCR) Not Detected (Not Detectd) - Radiology Data Radiology results: report reviewed (Chest x-ray positive right upper lobe pneumonia CT is pending secondary to abdominal pain), image reviewed Disposition Clinical Impression: Atypical chest pain, Fever, Community acquired pneumonia Disposition: ADMITTED IP TO THIS HOSP Condition: Fair Is patient prescribed a controlled substance at d/c from ED?: No Referrals: Luis Fernando Sneed MD [Primary Care Provider] - 1-2 days
[2019-03-04 20:44] LABS: Basophils # (A) 0.2 k/uL (0-0.2); Basophils % (A) 2 %; Eosinophils % (A) 0 %; HCT 41.6 % (39.0-53.0); HGB 14.2 gm/dL (13.0-17.5); Lymphocytes # (A) 0.4 k/uL (1.0-4.8); Lymphocytes % (A) 4 %; MCH 29.6 pg (25.0-35.0); MCHC 34.1 g/dL (31.0-37.0); MCV 86.8 fL (80.0-100.0); Mean Platelet Volume 5.8; Monocytes # (A) 0.5 k/uL (0-1.0); Monocytes % (A) 5 %; Neutrophils # (A) 9.8 k/uL (1.3-7.7); Neutrophils % (A) 88 %; Platelet Count 238 k/uL (150-450); RBC 4.79 m/uL (4.30-5.90); RDW 13.4 % (11.5-15.5); WBC 11.2 k/uL (3.8-10.6)
[2019-03-04 20:48] LABS: Albumin 3.3 g/dL (3.5-5.0); Calcium 8.6 mg/dL (8.4-10.2); Potassium 4.6 mmol/L (3.5-5.1); Total Bilirubin 0.3 mg/dL (0.2-1.3); Total Protein 6.6 g/dL (6.3-8.2)
[2019-03-04 20:55] LABS: Appearance,Urine Cloudy (Clear); Bilirubin,Urine Negative (Negative); Blood,Urine Small (Negative); Color,Urine Yellow; Glucose,Urine (UA) Negative (Negative); Ketones,Urine Negative (Negative); Leukocyte Esterase,Urine Negative (Negative); Mucus,Urine Rare /hpf; Nitrite,Urine Negative (Negative); PH, Urine 5.5 (5.0-8.0); Protein,Urine 2+ (Negative); RBC,Urine 2 /hpf (0-5); Specific Gravity,Urine 1.023 (1.001-1.035); Squamous Epithelial Cell,Urine <1 /hpf (0-4); Urobilinogen,Urine <2.0 mg/dL (<2.0)
--- NOTE | 2019-03-04 21:23 | XR ---
EXAMINATION TYPE: XR chest 2V DATE OF EXAM: 03/04/2019 COMPARISON: Chest x-ray June 29, 2017. CTA chest August 29, 2017 HISTORY: Weakness and fever. TECHNIQUE: Frontal and lateral views of the chest are obtained. FINDINGS: There is chronic emphysematous and parenchymal fibrotic change bilaterally with new inferi or lateral right upper lung airspace opacity. No pleural effusion or pneumothorax seen bilaterally. T he cardiac silhouette size is within normal limits. The osseous structures are intact. IMPRESSION: Chronic changes with new right upper lobe acute infiltrate.
[2019-03-04] MEDS ORDERED: AZITHROMYCIN 500 MG in SODIUM CHLORIDE 0.9% 250 ML IVPB STA (21:57)
[2019-03-04] MEDS ORDERED: PNEUMONIA PROTOCOL UTILIZED 1 EACH MISC PO PRN (21:57)
[2019-03-04] MEDS ORDERED: IPRATROPIUM-ALBUTEROL 3 ML NEB INHALATION PRN (21:57)
[2019-03-04] MEDS: SODIUM CHLORIDE 0.9% 1,000 ML IV SCH (22:26)
[2019-03-05] MEDS ORDERED: ONDANSETRON 4 MG/2 ML VIAL ONE ×2 (07:12→07:17)
--- NOTE | 2019-03-05 07:17 | CT ---
EXAMINATION TYPE: CT abdomen pelvis wo con DATE OF EXAM: 03/04/2019 COMPARISON: None HISTORY: fever, nausea, vomiting CT DLP: 391.6 mGycm Automated exposure control for dose reduction was used. TECHNIQUE: Helical acquisition of images was performed from the lung bases through the pelvis. FINDINGS: There is some pleural thickening and atelectasis and infiltrate at the right posterior lung base. The re is minimal subsegmental atelectasis left posterior lung base. Heart size is normal. There is no pe ricardial effusion. Liver spleen stomach appear normal. Bile ducts are not dilated. Gallbladder is distended and measures 3.7 cm. There is some thickening of the wall of the duodenum up to 13 mm. There is no adrenal mass. Kidneys have normal size. There is no hydronephrosis. There is significant cortical thinning lower pole of the left kidney. There is no evidence of renal mass. There is no retr operitoneal adenopathy. Abdominal aorta is atheromatous. Bladder distends smoothly. There is no inguinal hernia. There is no mesenteric edema. There is no asc ites or free air. There is lumbar levoscoliosis with multilevel spondylotic changes. Bony pelvis is i ntact. Appendix is not seen. There is no sign of thickened appendix. There are small bowel fluid leve ls and also some fluid levels in the right colon and transverse colon. IMPRESSION: THERE IS DUODENAL WALL THICKENING SUGGESTIVE OF DUODENITIS. MULTIPLE SMALL BOWEL AND LARGE BOWEL FLUID LEVELS CONSISTENT WITH ILEUS AND DIARRHEA. THERE IS NO MEC HANICAL BOWEL OBSTRUCTION. PLEURAL THICKENING AND INFILTRATE AND ATELECTASIS RIGHT LUNG BASE. SIGNIFICANT CORTICAL THINNING AND ATROPHY OF THE LOWER 50% OF THE LEFT KIDNEY.
--- NOTE | 2019-03-05 08:34 | XR ---
EXAMINATION TYPE: XR chest 2V DATE OF EXAM: 03/05/2019 COMPARISON: 03/04/2019 INDICATION: Pneumonia TECHNIQUE: Frontal and lateral views of the chest are obtained. FINDINGS: The heart size is normal. The pulmonary vasculature is normal. There is persistent density along the right mid pleural margin right upper lobe. This could be relate d to pneumonia. There may be some slight improvement over the interval.. IMPRESSION: 1. Right upper lobe peripheral pneumonia.
[2019-03-05] MEDS: SODIUM CHLORIDE 0.9% 1,000 ML IV SCH ×2 (08:51→20:05)
[2019-03-05] MEDS: AZITHROMYCIN 500 MG TAB PO SCH (08:51)
[2019-03-05] MEDS ORDERED: ENOXAPARIN 40 MG/0.4 ML SYRINGE SQ SCH (09:00)
[2019-03-05] MEDS ORDERED: ASPIRIN 325 MG TAB PO PRN (10:59)
[2019-03-05] MEDS ORDERED: SODIUM CHLORIDE 0.9% 1,000 ML IV ONE (11:12)
--- NOTE | 2019-03-05 11:17 | P.HPIM ---
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 Apparently the patient has been having intermittent episodes of fevers and chills over the last 5-7 days with a nonproductive cough over the last 2-3 days, he reports some wheezing at night which she trips to smoking. He denies any chest pain, denies difficulty breathing but has been h aving episodes of nausea and centralized to the left lower quadrant abdominal pain with radiation into or from his left flank. He also reports significant episodes of diarrhea described as watery stools in the last 5 days, he denies any recent antibiotic use. In the ER the patient had a comprehensive workup including CT abdomen and pelvis that indicated duodenal wall thickening suggestive of duodenitis and multiple small bowel and large bowel loops consistent with a ileus and diarrhea. There is no mechanical obstruction. Significant cortical thinning and atrophy of the lower left 50% of the kidney the patient was noted to have a white count of 11. 2 and was febrile in the ER with a T-max of 102.7 creatinine was 1.78. Serum sodium was 132 , urinalysis showed 2+ protein and small blood. Chest x-ray was consistent with a right upper lobe peripheral pneumonia. Patient recommended for admission for sepsis after being given a loading dose of azithromycin and Rocephin Past Medical History Past Medical History: Deep Vein Thrombosis (DVT), Hypertension Additional Past Medical History / Comment(s): BORN W/Vision impairment (R) eye, DVT in the LLE 5 years ago, alcoholism, HTN, COPD, chronic back pain History of Any Multi-Drug Resistant Organisms: None Reported Past Surgical History: Hernia Repair Additional Past Surgical History / Comment(s): VALENTINO inguinal hernia repair. Past Anesthesia/Blood Transfusion Reactions: No Reported Reaction Past Psychological History: No Psychological Hx Reported Smoking Status: Current every day smoker - Past Family History Mother Family Medical History: Myocardial Infarction ([place]) Father Family Medical History: Hypertension Medications and Allergies Home Medications Medication Instructions Recorded Confirmed Type amLODIPine BESYLATE/BENAZEPRIL 1 tab PO BID 06/29/17 03/04/19 History [amLODIPine BESYLATE/BENAZEPRIL 5-20 MG] Apixaban [Eliquis] 5 mg PO BID #60 tab 07/01/17 03/04/19 Rx Aspirin EC [Ecotrin] 325 mg PO DAILY PRN 03/04/19 03/04/19 History Gabapentin 600 mg PO TID 03/04/19 03/04/19 History Allergies Allergy/AdvReac Type Severity Reaction Status Date / Time No Known Allergies Allergy Verified 03/04/19 20:13 Physical Exam Vitals: Vital Signs Temp Pulse Resp BP Pulse Ox 03/04/19 22:21 100.8 F H 88 16 125/73 95 03/04/19 21:38 101.7 F H 03/04/19 21:05 102.7 F H 98 18 109/62 95 03/04/19 20:28 102.2 F H 112 H 19 126/76 95 03/04/19 18:43 102.8 F H 128 H 24 108/63 92 L Intake and Output 03/04/19 03/05/19 03/05/19 22:59 06:59 14:59 Other: Weight 49.895 kg Constitutional: No acute distress, conversant, pleasant Eyes: Anicteric sclerae, moist conjunctiva, no lid-lag, PERRLA ENMT: NC/AT,Oropharynx clear, no erythema, exudates Neck:Supple, FROM, no masses, or JVD, No carotid bruits; No thyromegaly Lungs: Diminished in the bases but clear to auscultation and unlabored on room air Cardiovascular: Heart regular in rate and rhythm, No murmurs, gallops, or rubs no peripheral edema Abdominal: Soft Nontender, nom distended, no guarding, no rebound or rigidity, Normoactive bowel sounds No hepatomegaly, No splenomegaly, No palpable mass No abdominal wall hernia noted Skin: Normal temperature, tone, texture, turgor, No induration No subcutaneous nodules, No rash, lesions, No ulcers Extremities:No digital cyanosis No clubbing, Pedal pulses intact and symmetrical Radial pulses intact and symmetrical Normal gait and station, No calf tenderness Psychiatric: Alert and oriented to person, place and time, Appropriate affect Intact judgement Neuro: Muscles Strength 5/5 in all 4 extremities, Sensation to light touch grossly present throughout, Cranial nerves II-XII grossly intact. No focal sensory deficits Results CBC & Chem 7: 03/04/19 20:25 03/04/19 20:25 Labs: Abnormal Lab Results - Last 24 Hours (Table) 03/04/19 03/04/19 03/04/19 Range/Units 20:25 20:25 20:35 WBC 11.2 H (3.8-10.6) k/uL Neutrophils # 9.8 H (1.3-7.7) k/uL Lymphocytes # 0.4 L (1.0-4.8) k/uL Sodium 132 L (137-145) mmol/L BUN 35 H (9-20) mg/dL Creatinine 1.78 H (0.66-1.25) mg/dL Glucose 129 H (74-99) mg/dL AST 76 H (17-59) U/L Albumin 3.3 L (3.5-5.0) g/dL Urine Protein 2+ H (Negative) Urine Blood Small H (Negative) Urine Mucus Rare H (None) /hpf Assessment and Plan Assessment: Sepsis Community-acquired pneumonia Acute kidney injury Hyponatremia Duodenitis Ileus Diarrhea History of venous thromboembolism Plan: The patient is admitted with anticipated greater than 2 midnight stay with sepsis after presenting with fever cough abdominal pain and diarrhea found to have a community-acquired pneumonia in the right upper lobe. The patient is hemodynamically stable but continues to be febrile. He was started on empiric IV antibiotics with Rocephin and azithromycin, with scheduled breathing treatments. The patient does not appear to be in a COPD exacerbation and 6 steroids are not indicated at this time. On CT the patient has a diarrheal state with noted duodenitis will add Flagyl for coverage of GI organisms we'll also check a C. diff. Blood cultures have been ordered and are pending urinalysis negative. I will give the patient a bolus and continue IV fluids. Patient is also noted to have acute kidney injury likely prerenal due to sepsis. I will consult nephrology for further recommendations. Patient is continued on his DOACs CODE STATUS: Full code Anticipated discharge: 2-[address]: Home Discussed plan of care with: Patient
[2019-03-05] MEDS: ACETAMINOPHEN TAB 325 MG TAB PO PRN ×2 (11:30→20:04)
--- NOTE | 2019-03-05 12:02 | P.NPCON ---
History of Present Illness - Reason for Consult acute renal failure - History of Present Illness Reason for consultation: Acute kidney injury History of present illness: Patient is a 63-year-old male seen in renal consultation for acute kidney injury. Patient denies any personal history of kidney disease. However patient states his sister was on hemodialysis due to diabetic kidney disease. Patient presented to the hospital due to high-grade fever. Patient states he's been and the fever in the range of 102-104F for the last 1 week. He's been taking Motrin twice daily to help bring the fever down. Patient came to the hospital because his told him to get further workup. Patient denies any cough. He does admit to abdominal discomfort. He's also been having quite a bit of diarrhea the last 1 week. He denies any vomiting. Oral intake has been quite poor. He denies any hematuria or dysuria. No chest pain or shortness of breath. No edema. Patient underwent computed tomography scan of the abdomen and pelvis which revealed no hydronephrosis. Left kidney was noted to be atrophic. Duodenitis was noted. He's currently receiving IV antibiotics. He is receiving 1 L normal saline bolus and will be started on normal saline at 100 mL an hour. Hemodynamically stable. He was taking EFRAIN inhibitor at home which is currently held. Vital signs are stable. General: The patient appeared well nourished and normally developed. HEENT: Head exam is unremarkable. Neck is without jugular venous distension. LUNGS: Lungs are clear to auscultation and percussion. Breath sounds decreased. HEART: Rate and Rhythm are regular. First and second heart sounds normal. No murmurs, rubs or gallops. ABDOMEN: Abdominal exam reveals normal bowel sounds. Mildly tender to touch. Soft. EXTREMITITES: No clubbing, cyanosis, or edema. Past Medical History Past Medical History: Deep Vein Thrombosis (DVT), Hypertension Additional Past Medical History / Comment(s): BORN W/Vision impairment (R) eye, DVT in the LLE 5 years ago, alcoholism, HTN, COPD, chronic back pain History of Any Multi-Drug Resistant Organisms: None Reported Past Surgical History: Hernia Repair Additional Past Surgical History / Comment(s): VALENTINO inguinal hernia repair. Past Anesthesia/Blood Transfusion Reactions: No Reported Reaction Past Psychological History: No Psychological Hx Reported Smoking Status: Current every day smoker - Past Family History Mother Family Medical History: Myocardial Infarction ([place]) Father Family Medical History: Hypertension Medications and Allergies Home Medications Medication Instructions Recorded Confirmed Type amLODIPine BESYLATE/BENAZEPRIL 1 tab PO BID 06/29/17 03/04/19 History [amLODIPine BESYLATE/BENAZEPRIL 5-20 MG] Apixaban [Eliquis] 5 mg PO BID #60 tab 07/01/17 03/04/19 Rx Aspirin EC [Ecotrin] 325 mg PO DAILY PRN 03/04/19 03/04/19 History Gabapentin 600 mg PO TID 03/04/19 03/04/19 History Allergies Allergy/AdvReac Type Severity Reaction Status Date / Time No Known Allergies Allergy Verified 03/04/19 20:13 Physical Exam Vitals: Vital Signs Temp Pulse Resp BP Pulse Ox 03/04/19 22:21 100.8 F H 88 16 125/73 95 03/04/19 21:38 101.7 F H 03/04/19 21:05 102.7 F H 98 18 109/62 95 03/04/19 20:28 102.2 F H 112 H 19 126/76 95 03/04/19 18:43 102.8 F H 128 H 24 108/63 92 L Intake and Output 03/04/19 03/05/19 03/05/19 22:59 06:59 14:59 Other: Weight 49.895 kg Results - Lab Results Most recent lab results Calcium 8.6 mg/dL (8.4-10.2) 03/04/19 20:25 03/04/19 20:25 03/04/19 20:25 Assessment and Plan Plan: Assessment: 1. Acute kidney injury mostly prerenal secondary to sepsis, intravascular volume depletion from diarrhea and further worsened with the use of EFRAIN inhibitor and nonsteroidals. Creatinine 1.78 on admission. No evidence of hydronephrosis. 2. Left kidney atrophy noted on CAT scan. 3. Hypovolemic hyponatremia. 4. Pneumonia maintained on antibiotics. 5. Duodenitis. 6. Proteinuria. This can be nonspecific in the setting of acute kidney injury and infection. This will need to be repeated and further workup will be done if has persistent proteinuria. Plan: Maintain normal saline at 100 mL an hour. Avoid nephrotoxins. Hold antihypertensives. Repeat electrolytes in the morning. Repeat UA and quantify proteinuria in the next few days. Further workup if has persistent proteinuria. Follow-up C. diff. Check renal ultrasound. Thank you for the consultation. I will continue to follow the patient with you during his hospital stay.
[2019-03-05] MEDS: IPRATROPIUM-ALBUTEROL 3 ML NEB INHALATION SCH ×4 (12:40→23:38)
--- NOTE | 2019-03-05 15:30 | US ---
EXAMINATION TYPE: US kidneys/renal and bladder DATE OF EXAM: 03/05/2019 COMPARISON: NONE CLINICAL HISTORY: prasanth. PRASANTH EXAM MEASUREMENTS: Right Kidney: 10.8 x 4.6 x 5.2 cm Left Kidney: 7.1 x 4.4 x 4.5 cm Right Kidney: wnl Left Kidney: [place] Bladder: wnl Bilateral Jets seen: Right jet only IMPRESSION: 1. No acute ultrasound abnormality bilateral kidneys. Left kidney appears atrophic
[2019-03-05] MEDS: GABAPENTIN 300 MG CAP PO SCH ×2 (15:53→22:58)
[2019-03-05] MEDS: metroNIDAZOLE-NS PMX 500 MG in SALINE 1 100ML.BAG IVPB SCH (15:54)
[2019-03-05] MEDS: MELATONIN 3 MG TABLET PO SCH (15:54)
[2019-03-05 15:57] VITALS: BMI 21.9
[2019-03-05] MEDS: APIXABAN 5 MG TAB PO SCH (20:04)
[2019-03-05] MEDS: guaiFENesin 600 MG TABLET.ER PO SCH (20:04)
[2019-03-06] MEDS: metroNIDAZOLE-NS PMX 500 MG in SALINE 1 100ML.BAG IVPB SCH ×2 (00:10→10:28)
[2019-03-06] MEDS: IPRATROPIUM-ALBUTEROL 3 ML NEB INHALATION SCH ×5 (03:14→21:10)
[2019-03-06] MEDS: SODIUM CHLORIDE 0.9% 1,000 ML IV SCH ×2 (05:04→15:15)
--- NOTE | 2019-03-06 08:01 | P.PN ---
Subjective Progress Note Date: 03/06/19 Principal diagnosis: Sepsis He feels better today, no nausea no vomiting, able to tolerate diet. He remains afebrile, no chest pain, no shortness of breath. Objective - Vital Signs Vital signs: Vital Signs Temp 99.1 F 03/06/19 07:21 Pulse 81 03/06/19 07:21 Resp 18 03/06/19 07:21 BP 137/76 03/06/19 07:21 Pulse Ox 94 L 03/06/19 07:21 Intake & Output 03/05/19 03/06/19 03/06/19 18:59 06:59 18:59 Intake Total 1800 Balance 1800 Weight 63.503 kg Intake: Intake, IV Titration 1800 Amount Sodium Chloride 0.9% 1, 1600 000 ml @ 100 mls/hr IV . Q10H NIA Rx#:[id number] metroNIDAZOLE-NS PMX 500 200 mg In Saline 1 100ml.bag @ 100 mls/hr IVPB Q8HR NIA Rx#:[id number] Other: Voiding Method Toilet # Voids 2 2 - Exam Constitutional: No acute distress, conversant, pleasant Eyes: Anicteric sclerae, moist conjunctiva ENMT: NC/AT Neck:Supple Lungs: Diminished in the bases but clear to auscultation and unlabored on room air Cardiovascular: Heart regular in rate and rhythm, No murmurs, gallops, or rubs no peripheral edema Abdominal: Soft Nontender, non distended, no guarding, no rebound or rigidity, Normoactive bowel sounds Skin: Normal temperature Extremities:No digital cyanosis No clubbing Psychiatric: Alert and oriented to person, place and time, Appropriate affect Intact judgement Neuro: Muscles Strength 5/5 in all 4 extremities, Sensation to light touch grossly present throughout, Cranial nerves II-XII grossly intact. No focal se nsory deficits - Labs CBC & Chem 7: 03/04/19 20:25 03/04/19 20:25 Labs: Microbiology - Last 24 Hours (Table) 03/04/19 22:20 Blood Culture - Preliminary Blood No Growth after 24 hours 03/04/19 20:25 Blood Culture - Preliminary Blood No Growth after 24 hours Assessment and Plan Plan: Sepsis secondary to pneumonia and duodenitis: Continue antibiotics, Zithromax, Cefdinir and Flagyl. Community-acquired pneumonia unspecified organism: Continue Zithromax and Omnicef Acute kidney injury secondary to hypovolemia in the setting of sepsis: Serum creatinine 1.7 upon admission, the IV fluids, monitor, appreciate renal input. Hyponatremia with hypovolemia: Continue normal saline and recheck Duodenitis, acute unspecified etiology: Continue Flagyl, monitor Ileus: Conservative treatment Diarrhea: Pending C. diff History of venous thromboembolism: Continue Eliquis Peripheral neuropathy: Continue gabapentin Disposition: Home in 1-2 days if remains afebrile.
[2019-03-06] MEDS: guaiFENesin 600 MG TABLET.ER PO SCH ×2 (08:54→22:16)
[2019-03-06] MEDS: GABAPENTIN 300 MG CAP PO SCH ×3 (08:55→22:16)
[2019-03-06] MEDS: AZITHROMYCIN 500 MG TAB PO SCH (08:55)
[2019-03-06] MEDS: CEFDINIR 300 MG CAP PO SCH ×2 (08:55→22:16)
[2019-03-06] MEDS: APIXABAN 5 MG TAB PO SCH ×2 (08:55→22:16)
[2019-03-06 09:28] LABS: Basophils # (A) 0.1 k/uL (0-0.2); Basophils % (A) 1 %; Eosinophils % (A) 0 %; HCT 36.6 % (39.0-53.0); HGB 11.4 gm/dL (13.0-17.5); Lymphocytes # (A) 0.7 k/uL (1.0-4.8); Lymphocytes % (A) 7 %; MCH 27.9 pg (25.0-35.0); MCV 89.9 fL (80.0-100.0); Mean Platelet Volume 6.7; Monocytes # (A) 0.5 k/uL (0-1.0); Monocytes % (A) 5 %; Neutrophils # (A) 8.9 k/uL (1.3-7.7); Neutrophils % (A) 85 %; Platelet Count 228 k/uL (150-450); RBC 4.07 m/uL (4.30-5.90); WBC 10.4 k/uL (3.8-10.6)
[2019-03-06 09:32] LABS: ALT 79 U/L (21-72); AST 113 U/L (17-59); African American GFR (CKD) >90 (>60 ml/min/1.73 sqM); Albumin 2.5 g/dL (3.5-5.0); Alkaline Phosphatase 113 U/L (38-126); Anion Gap 7 mmol/L; Blood Urea Nitrogen 14 mg/dL (9-20); Calcium 8.2 mg/dL (8.4-10.2); Carbon Dioxide 22 mmol/L (22-30); Chloride 108 mmol/L (98-107); Glucose 135 mg/dL (74-99); Potassium 3.8 mmol/L (3.5-5.1); Sodium 137 mmol/L (137-145); Total Bilirubin 0.3 mg/dL (0.2-1.3); Total Protein 5.3 g/dL (6.3-8.2)
[2019-03-06] MEDS: ACETAMINOPHEN TAB 325 MG TAB PO PRN (15:14)
[2019-03-06] MEDS: metroNIDAZOLE 500 MG TAB PO SCH (17:55)
--- NOTE | 2019-03-06 18:49 | PN ---
PROGRESS NOTE Patient is seen for followup for acute kidney injury. Renal function has improved significantly. Creatinine is down to 0.9 from 1.78. The patient has had good urine output. He is voiding on his own. PHYSICAL EXAMINATION: This morning blood pressure was 137/76, heart rate 81 per minute. He is afebrile. Examination of the heart S1, S2. Examination of the lungs, bilateral breath sounds are heard. ABDOMEN: Soft, nontender. Examination of lower extremities shows no evidence of edema. VICE PRESIDENT RESEARCH exam grossly intact. LABS: Sodium 137, potassium 3.8, chloride 108, BUN 14, creatinine 0.96. ASSESSMENT: 1. Acute kidney injury prerenal currently improved. Patient is maintained on IV fluids. I will continue with the fluids and decrease rate to about 60 mL an hour. 2. Proteinuria. This will need further evaluation with quantification of urinary protein and basic serological workup. There is no history of diabetes. The patient is advised to continue to avoid use of any nonsteroidal anti-inflammatory agents. 3. Left renal atrophy noted on CT scan. 4. Pneumonia, maintained on antibiotics. PLAN: Continue IV fluids. Decrease rate. Continue to hold off on EFRAIN inhibitors and nonsteroidal anti-inflammatory agents. Follow up as outpatient. Workup the proteinuria as outpatient. MMODL / IJN: [id number] /
[2019-03-06] MEDS: ONDANSETRON 4 MG/2 ML VIAL IVP PRN (19:37)
[2019-03-06] MEDS: MELATONIN 3 MG TABLET PO SCH (22:16)
[2019-03-07] MEDS: metroNIDAZOLE 500 MG TAB PO SCH ×3 (00:10→17:49)
[2019-03-07] MEDS: SODIUM CHLORIDE 0.9% 1,000 ML IV SCH ×2 (00:11→13:05)
[2019-03-07] MEDS: ONDANSETRON 4 MG/2 ML VIAL IVP PRN ×2 (00:34→06:53)
[2019-03-07 07:50] LABS: Basophils % (A) 0 %; Eosinophils # (A) 0.1 k/uL (0-0.7); Eosinophils % (A) 1 %; HCT 36.9 % (39.0-53.0); HGB 11.5 gm/dL (13.0-17.5); Lymphocytes # (A) 0.9 k/uL (1.0-4.8); Lymphocytes % (A) 10 %; MCH 28.2 pg (25.0-35.0); MCHC 31.3 g/dL (31.0-37.0); MCV 90.2 fL (80.0-100.0); Mean Platelet Volume 6.9; Monocytes # (A) 0.4 k/uL (0-1.0); Monocytes % (A) 5 %; Neutrophils # (A) 7.9 k/uL (1.3-7.7); Neutrophils % (A) 83 %; Platelet Count 261 k/uL (150-450); RBC 4.09 m/uL (4.30-5.90); RDW 14.2 % (11.5-15.5); WBC 9.5 k/uL (3.8-10.6)
[2019-03-07 08:05] LABS: ALT 68 U/L (21-72); AST 69 U/L (17-59); African American GFR (CKD) >90 (>60 ml/min/1.73 sqM); Albumin 2.4 g/dL (3.5-5.0); Alkaline Phosphatase 102 U/L (38-126); Anion Gap 6 mmol/L; Blood Urea Nitrogen 14 mg/dL (9-20); Calcium 8.2 mg/dL (8.4-10.2); Carbon Dioxide 22 mmol/L (22-30); Chloride 109 mmol/L (98-107); Glucose 89 mg/dL (74-99); Sodium 137 mmol/L (137-145); Total Bilirubin 0.4 mg/dL (0.2-1.3); Total Protein 5.2 g/dL (6.3-8.2)
--- NOTE | 2019-03-07 09:20 | P.PN ---
Subjective Principal diagnosis: Sepsis feels better today, still has nausea but no vomiting , no abd pain Objective - Vital Signs Vital signs: Vital Signs Temp 98.3 F 03/07/19 07:17 Pulse 56 L 03/07/19 07:17 Resp 18 03/07/19 07:17 BP 152/72 03/07/19 07:17 Pulse Ox 93 L 03/07/19 07:17 Intake & Output 03/06/19 03/07/19 03/07/19 18:59 06:59 18:59 Intake Total 900 300 Balance 900 300 Intake: Intake, IV Titration 900 300 Amount Sodium Chloride 0.9% 1, 800 300 000 ml @ 100 mls/hr IV . Q10H NIA Rx#:[id number] metroNIDAZOLE-NS PMX 500 100 mg In Saline 1 100ml.bag @ 100 mls/hr IVPB Q8HR NIA Rx#:[id number] Other: Voiding Method Toilet Toilet # Voids 2 2 - Exam Constitutional: No acute distress, conversant, pleasant Eyes: Anicteric sclerae, moist conjunctiva ENMT: NC/AT Lungs: ctab no wheezing Cardiovascular: Heart regular in rate and rhythm, No murmurs, gallops, or rubs no peripheral edema Abdominal: Soft Nontender, non distended, no guarding, no rebound or rigidity, Normoactive bowel sounds Skin: Normal temperature Extremities:No digital cyanosis No clubbing Psychiatric: Alert and oriented to person, place and time, Appropriate affect Intact judgement Neuro: Muscles Strength 5/5 in all 4 extremities Cranial nerves II-XII grossly intact. No focal sensory deficits - Labs CBC & Chem 7: 03/07/19 07:02 03/07/19 07:02 Labs: Abnormal Lab Results - Last 24 Hours (Table) 03/06/19 03/06/19 03/07/19 Range/Units 08:18 08:18 07:02 RBC 4.07 L 4.09 L (4.30-5.90) m/uL Hgb 11.4 L 11.5 L (13.0-17.5) gm/dL Hct 36.6 L 36.9 L (39.0-53.0) % Neutrophils # 8.9 H 7.9 H (1.3-7.7) k/uL Lymphocytes # 0.7 L 0.9 L (1.0-4.8) k/uL Chloride 108 H (98-107) mmol/L Glucose 135 H (74-99) mg/dL Calcium 8.2 L (8.4-10.2) mg/dL AST 113 H (17-59) U/L ALT 79 H (21-72) U/L Total Protein 5.3 L (6.3-8.2) g/dL Albumin 2.5 L (3.5-5.0) g/dL 03/07/19 Range/Units 07:02 RBC (4.30-5.90) m/uL Hgb (13.0-17.5) gm/dL Hct (39.0-53.0) % Neutrophils # (1.3-7.7) k/uL Lymphocytes # (1.0-4.8) k/uL Chloride 109 H (98-107) mmol/L Glucose (74-99) mg/dL Calcium 8.2 L (8.4-10.2) mg/dL AST 69 H (17-59) U/L ALT (21-72) U/L Total Protein 5.2 L (6.3-8.2) g/dL Albumin 2.4 L (3.5-5.0) g/dL Microbiology - Last 24 Hours (Table) 03/04/19 22:20 Blood Culture - Preliminary Blood No Growth after 48 hours 03/04/19 20:25 Blood Culture - Preliminary Blood No Growth after 48 hours Assessment and Plan Plan: Sepsis secondary to pneumonia and duodenitis: Continue antibiotics, Zithromax, Cefdinir and Flagyl. Clinically better , wbc normal Community-acquired pneumonia unspecified organism: Continue Zithromax and Omnicef Acute kidney injury secondary to hypovolemia in the setting of sepsis: Serum creatinine 1.7 upon admission, continue IV fluids, monitor, appreciate renal input. Hyponatremia with hypovolemia: Continue normal saline , resolved Duodenitis, acute unspecified etiology: Continue Flagyl, monitor, consult GI Ileus: Conservative treatment Diarrhea: negative C. diff History of venous thromboembolism: Continue Eliquis Peripheral neuropathy: Continue gabapentin Disposition: Home likely tomorrow
[2019-03-07] MEDS ORDERED: PROMETHAZINE INJ 6.25 MG in SODIUM CHLORIDE 0.9% 50 ML IVPB PRN (09:21)
[2019-03-07] MEDS: guaiFENesin 600 MG TABLET.ER PO SCH ×2 (09:52→21:47)
[2019-03-07] MEDS: CEFDINIR 300 MG CAP PO SCH ×2 (09:52→21:46)
[2019-03-07] MEDS: AZITHROMYCIN 500 MG TAB PO SCH (09:52)
[2019-03-07] MEDS: APIXABAN 5 MG TAB PO SCH ×2 (09:52→21:46)
[2019-03-07] MEDS: GABAPENTIN 300 MG CAP PO SCH ×3 (09:52→21:46)
[2019-03-07] MEDS: IPRATROPIUM-ALBUTEROL 3 ML NEB INHALATION SCH ×2 (10:31→19:52)
--- NOTE | 2019-03-07 12:26 | CT ---
EXAMINATION TYPE: CT chest angio for PE DATE OF EXAM: 03/07/2019 COMPARISON: CT angiogram of the chest dated 08/29/2017 HISTORY: Chest pain. CT DLP: 468 mGycm Automated exposure control for dose reduction was used. CONTRAST: CT Chest for pulmonary embolism performed with with IV Contrast, patient injected with 100 mL of Isov ue 370. FINDINGS: LUNGS: The lungs are remarkable for airspace disease within the right upper lobe, right lower lobe. T here is associated pleural effusion, probable compressive atelectasis at the right lung base. Emphyse matous changes again noted within the lungs. The tracheobronchial tree is patent. There are scattere d pleural calcifications MEDIASTINUM: There is satisfactory enhancement of the pulmonary artery and its branches, however in s mall subsegmental right lower lobe branches there is incomplete opacification which could possibly be due to focal oligemia rather than pulmonary embolus. There is right hilar adenopathy, an interval fi nding. Persistent abnormal low attenuation adenopathy present in the retrocaval pretracheal mediastin um. Contrast material seen within the inferior vena cava, hepatic veins, correlate for possible right heart failure. No pericardial effusion is seen. There are coronary artery calcifications present. AORTA: No additional significant abnormality is seen. OTHER: Left kidney is atrophic in its lower aspect. There is perinephric fluid present. Possible flu id in the portal region. IMPRESSION: Limitations as described. Findings compatible with pneumonia. Pleural effusion. No central pulmonary embolism. Difficult to exclude small subsegmental emboli.
--- NOTE | 2019-03-07 13:22 | P.PN ---
Subjective Patient is seen in follow-up for acute kidney injury. GFR is back to baseline. Currently maintained on IV fluids. No vomiting or diarrhea. Does have abdominal discomfort at times. Vital signs are stable. General: The patient appeared well nourished and normally developed. HEENT: Head exam is unremarkable. Neck is without jugular venous distension. LUNGS: Lungs are clear to auscultation and percussion. Breath sounds decreased. HEART: Rate and Rhythm are regular. First and second heart sounds normal. No murmurs, rubs or gallops. ABDOMEN: Abdominal exam reveals normal bowel sounds. Mildly tender to palpation. EXTREMITITES: No clubbing, cyanosis, or edema. Objective - Vital Signs Vital signs: Vital Signs Temp 98.3 F 03/07/19 07:17 Pulse 60 03/07/19 10:10 Resp 18 03/07/19 10:10 BP 142/71 03/07/19 10:10 Pulse Ox 93 L 03/07/19 07:17 Intake & Output 03/06/19 03/07/19 03/07/19 18:59 06:59 18:59 Intake Total 900 300 Balance 900 300 Intake: Intake, IV Titration 900 300 Amount Sodium Chloride 0.9% 1, 800 300 000 ml @ 100 mls/hr IV . Q10H NIA Rx#:[id number] metroNIDAZOLE-NS PMX 500 100 mg In Saline 1 100ml.bag @ 100 mls/hr IVPB Q8HR NIA Rx#:[id number] Other: Voiding Method Toilet Toilet Toilet # Voids 2 2 - Labs CBC & Chem 7: 03/07/19 07:02 03/07/19 07:02 Labs: Abnormal Lab Results - Last 24 Hours (Table) 03/07/19 03/07/19 03/07/19 Range/Units 07:02 07:02 09:39 RBC 4.09 L (4.30-5.90) m/uL Hgb 11.5 L (13.0-17.5) gm/dL Hct 36.9 L (39.0-53.0) % Neutrophils # 7.9 H (1.3-7.7) k/uL Lymphocytes # 0.9 L (1.0-4.8) k/uL D-Dimer 4.24 H (<0.60) mg/L FEU Chloride 109 H (98-107) mmol/L Calcium 8.2 L (8.4-10.2) mg/dL AST 69 H (17-59) U/L Total Protein 5.2 L (6.3-8.2) g/dL Albumin 2.4 L (3.5-5.0) g/dL Microbiology - Last 24 Hours (Table) 03/04/19 22:20 Blood Culture - Preliminary Blood No Growth after 48 hours 03/04/19 20:25 Blood Culture - Preliminary Blood No Growth after 48 hours Assessment and Plan Plan: Assessment: 1. Acute kidney injury mostly prerenal secondary to sepsis, intravascular volume depletion from diarrhea and further worsened with the use of EFRAIN inhibitor and nonsteroidals. Creatinine 1.78 on admission - 0.85 today No evidence of hydronephrosis. Received IV dye today. 2. Left kidney atrophy. 3. Hypovolemic hyponatremia. Improved. 4. Pneumonia maintained on antibiotics. 5. Duodenitis. 6. Proteinuria. This can be nonspecific in the setting of acute kidney injury and infection. This will need to be repeated and further workup will be done if has persistent proteinuria. Plan: Decrease normal saline to 75 mL an hour. Avoid nephrotoxins. Repeat electrolytes in the morning. Repeat UA and quantify proteinuria in the next few days. Further workup if has persistent proteinuria.
--- NOTE | 2019-03-07 13:45 | P.CRDCN ---
History of Present Illness History of present illness: This is a pleasant 63-year-old male past medical history significant for hypertension, DVT a few years ago and then recent pulmonary embolism, chronic nicotine dependence, daily alcohol abuse and COPD. He denies personal history of coronary artery disease however his mother father and 2 brothers and one sister all had premature coronary artery disease. We have been asked to see him in consultation secondary to chest discomfort. Currently being treated for sepsis secondary to pneumonia and duodenitis, acute kidney injury and ileus. He is seen and examined sitting up in bed with a bucket near him due to persistent nausea and states he just recently vomited some clear liquid. He describes a burning type pain in the mid-sternal/epigastric region. The discomfort has been quite constant all morning with no aggravating or alleviating factors. No radiation to the arm, back, neck or jaw. He denies associated shortness of breath, dizziness or palpitations. He states over the previous one year he has noticed a significant decrease in his overall activity level and states he has noticed an increase in his exertional shortness of breath and intermittently has heaviness in his chest. Most recently he saw Dr. Solano in 2017 and underwent stress test and echocardiogram prior to hernia surgery. History of chest was negative for stress-induced ischemia on echocardiogram revealed normal LV systolic function with no wall motion abnormalities. EKG on admission shows si nus bradycardia with no ST or T wave abnormalities noted. Chest x-ray on admission reveals a right upper lobe peripheral pneumonia. CT of the abdomen and pelvis reveals duodenal wall thickening suggestive of duodenitis, multiple small and large bowel fluid levels consistent with ileus, no mechanical bowel obstruction, pleural thickening and infiltrate at the right lung base and cortical thickening and atrophy of the lower 50% of the left kidney. CTA was a limited study however no central pulmonary embolism noted, compatible with pneumonia and pleural effusion. Laboratory data reviewed, WBC 9.5 down from 11.4 on admission, hemoglobin 11.5, platelets 261, d-dimer 4.24, sodium 137, potassium 4.0, creatinine 0.85, magnesium 1.9 and troponin negative 1. Blood pressure 142/71 heart rate 60 currently afebrile maintaining oxygen saturation on room air. Patient did have a temperature as high as 102.9 on admission. Current daily medications include aspirin 325 mg when necessary, amlodipi ne/benazepril 5/20 mg twice a day and Eliquis 5 mg twice a day. At the time of my exam: CONSTITUTIONAL: Denies fever. Denies chills. EYES: Denies blurred vision. Denies vision changes. Denies eye pain. EARS, NOSE, MOUTH & THROAT: Denies headache. Denies sore throat. Denies ear pain. CARDIOVASCULAR: Denies chest pain. Denies shortness of breath. Denies orthopnea. Denies PND. Denies palpitations. RESPIRATORY: Denies cough. GASTROINTESTINAL: Complains of epigastric discomfort. Denies diarrhea. Denies constipation. Complains of nausea and vomiting. MUSCULOSKELETAL: Denies myalgias. INTEGUMENTARY: Denies pruitis. Denies rash. NEUROLOGIC: Denies numbness. Denies tingling. Denies weakness. PSYCHIATRIC: Denies anxiety. Denies depression. ENDOCRINE: Complains of fatigue. Denies weight change. Denies polydipsia. Denies polyurina. GENITOURINARY: Denies burning, hematuria or urgency with micturation. HEMATOLOGIC: Denies history of anemia. Denies bleeding. GENERAL: This is a 63-year-old male in no apparent distress at the time of my examination. HEENT: Head is atraumatic, normocephalic. Pupils are equal, round. Sclerae anicteric. Conjunctivae are clear. Mucous membranes of the mouth are moist. Neck is supple. There is no jugular venous distention. No carotid bruit is heard. LUNGS: Coarse, no rales or wheezes. No chest wall tenderness is noted on palpation or with deep breathing. Diminished bilaterally. HEART: Regular rate and rhythm without murmurs, rubs or gallops. S1 and S2 heard. ABDOMEN: Soft, nontender. Bowel sounds are heard. No organomegaly noted. EXTREMITIES: No evidence of peripheral edema and no calf tenderness noted. VASCULAR: Radial and dorsalis pedis pulses palpated, no evidence of clubbing. NEUROLOGIC: Patient is awake, alert and oriented x3. ASSESSMENT Chest pain, atypical for angina. Sepsis secondary to pneumonia and duodenitis Leukocytosis, improved Febrile illness History of pulmonary embolism on long-term anticoagulation Hypertension COPD History of PE and DVT maintained on group home anti-coagulation Chronic nicotine dependence Daily alcohol abuse PLAN Symptoms are atypical to be related to angina, likely related to underlying duodenitis. Recommend GI prophylaxis with Protonix secondary to antibiotics. Obtain 2-D echocardiogram and Doppler study to assess cardiac structure and function. Underlying coronary artery disease is likely given the patient's family history as well as multiple risk factors. He would benefit from outpatient stress testing once his underlying infections have resolved. Check lipid panel. Smoking and alcohol cessation highly recommended. Follow-up with Dr. Solano upon discharge. Thank you kindly for this consultation. Nurse Practitioner note has been reviewed, I agree with a documented findings and plan of care. Patient was seen and examined. Past Medical History Past Medical History: Deep Vein Thrombosis (DVT), Hypertension Additional Past Medical History / Comment(s): BORN W/Vision impairment (R) eye, DVT in the LLE 5 years ago, alcoholism, HTN, COPD, chronic back pain History of Any Multi-Drug Resistant Organisms: None Reported Past Surgical History: Hernia Repair Additional Past Surgical History / Comment(s): VALENTINO inguinal hernia repair. Past Anesthesia/Blood Transfusion Reactions: No Reported Reaction Past Psychological History: No Psychological Hx Reported Smoking Status: Current every day smoker - Past Family History Mother Family Medical History: Myocardial Infarction (NE) Father Family Medical History: Hypertension Medications and Allergies Home Medications Medication Instructions Recorded Confirmed Type amLODIPine BESYLATE/BENAZEPRIL 1 tab PO BID 06/29/17 03/04/19 History [amLODIPine BESYLATE/BENAZEPRIL 5-20 MG] Apixaban [Eliquis] 5 mg PO BID #60 tab 07/01/17 03/04/19 Rx Aspirin EC [Ecotrin] 325 mg PO DAILY PRN 03/04/19 03/04/19 History Gabapentin 600 mg PO TID 03/04/19 03/04/19 History Allergies Allergy/AdvReac Type Severity Reaction Status Date / Time No Known Allergies Allergy Verified 03/04/19 20:13 Physical Exam Vitals: Vital Signs Temp Pulse Resp BP Pulse Ox 03/07/19 10:10 60 18 142/71 03/07/19 07:17 98.3 F 56 L 18 152/72 93 L 03/07/19 04:52 98.5 F 82 16 135/56 95 03/06/19 21:00 98.6 F 67 16 148/80 99 Intake and Output 03/06/19 03/07/19 03/07/19 22:59 06:59 14:59 Intake Total 300 Balance 300 Intake: Intake, IV Titration 300 Amount Sodium Chloride 0.9% 1, 300 000 ml @ 100 mls/hr IV . Q10H [facility] Rx#:[id number] Other: Voiding Method Toilet Toilet # Voids 2 Results 03/07/19 07:02 03/07/19 07:02 Cardiac Enzymes 03/07/19 03/07/19 Range/Units 07:02 09:39 AST 69 H (17-59) U/L Troponin I <0.012 (0.000-0.034) ng/mL CBC 03/07/19 Range/Units 07:02 WBC 9.5 (3.8-10.6) k/uL RBC 4.09 L (4.30-5.90) m/uL Hgb 11.5 L (13.0-17.5) gm/dL Hct 36.9 L (39.0-53.0) % Plt Count 261 (150-450) k/uL Comprehensive Metabolic Panel 03/07/19 Range/Units 07:02 Sodium 137 (137-145) mmol/L Potassium 4.0 (3.5-5.1) mmol/L Chloride 109 H (98-107) mmol/L Carbon Dioxide 22 (22-30) mmol/L BUN 14 (9-20) mg/dL Creatinine 0.85 (0.66-1.25) mg/dL Glucose 89 (74-99) mg/dL Calcium 8.2 L (8.4-10.2) mg/dL AST 69 H (17-59) U/L ALT 68 (21-72) U/L Alkaline Phosphatase 102 (38-126) U/L Total Protein 5.2 L (6.3-8.2) g/dL Albumin 2.4 L (3.5-5.0) g/dL Current Medications Generic Name Dose Route Start Last Admin Trade Name Freq PRN Reason Stop Dose Admin Acetaminophen 650 mg 03/05/19 11:11 03/06/19 15:14 Tylenol Tab PO 650 mg Q6HR PRN Administration Fever and/ or Mild Pain Albuterol/Ipratropium 3 ml 03/04/19 21:57 Duoneb 0.5 Mg-3 Mg/3 Ml Soln INHALATION RT-Q4H PRN shortness of breath Albuterol/Ipratropium 3 ml 03/07/19 08:00 03/07/19 10:31 Duoneb 0.5 Mg-3 Mg/3 Ml Soln INHALATION Not Given RT-TID NIA Apixaban 5 mg 03/05/19 21:00 03/07/19 09:52 Eliquis PO 5 mg BID NIA Administration Aspirin 325 mg 03/05/19 10:59 Aspirin PO DAILY PRN Pain or Fever > 100.5 Azithromycin 500 mg 03/05/19 09:00 03/07/19 09:52 Zithromax PO 500 mg DAILY NIA Administration Cefdinir 300 mg 03/06/19 09:00 03/07/19 09:52 Omnicef PO 03/08/19 23:00 300 mg BID NIA Administration Gabapentin 600 mg 03/05/19 16:00 03/07/19 09:52 Neurontin PO 600 mg TID NIA Administration Guaifenesin 600 mg 03/05/19 21:00 03/07/19 09:52 Mucinex PO 600 mg Q12HR NIA Administration Sodium Chloride 1,000 mls @ 75 mls/hr 03/04/19 22:00 03/07/19 13:05 Saline 0.9% IV 75 mls/hr .[id number] NIA Administration Promethazine HCl 6.25 mg/ 50.25 mls @ 200 mls/hr 03/07/19 09:21 03/07/19 11:20 Sodium Chloride IVPB 200 mls/hr Q6HR PRN Administration Nausea And Vomiting Melatonin 3 mg 03/05/19 21:00 03/06/19 22:16 Melatonin PO 3 mg HS NIA Administration Metronidazole 500 mg 03/06/19 16:00 03/07/19 09:52 Flagyl PO 500 mg Q8HR NIA Administration Miscellaneous Information 1 each 03/04/19 21:57 Pneumonia Protocol Utilized PO ONCE PRN Per Protocol Ondansetron HCl 4 mg 03/05/19 11:11 03/07/19 06:53 Zofran IVP 4 mg Q6HR PRN Administration Nausea And Vomiting Intake and Output 03/06/19 03/07/19 03/07/19 22:59 06:59 14:59 Intake Total 300 Balance 300 Intake: Intake, IV Titration 300 Amount Sodium Chloride 0.9% 1, 300 000 ml @ 100 mls/hr IV . Q10H NIA Rx#:[id number] Other: Voiding Method Toilet Toilet # Voids 2 03/07/19 07:02 03/07/19 07:02
[2019-03-07 15:23] LABS: Cholesterol 118 mg/dL (<200); HDL Cholesterol 25 mg/dL (40-60); LDL Cholesterol,Calculated 74 mg/dL (0-99); Triglycerides 94 mg/dL (<150)
[2019-03-07] MEDS: PANTOPRAZOLE 40 MG TABLET PO SCH (17:49)
--- NOTE | 2019-03-07 18:00 | ECHOF ---
Referral Reason:cp, fatigue, sob MEASUREMENTS -------- HEIGHT: 170.2 cm WEIGHT: 63.5 kg BP: 142/71 RVIDd: 3.0 cm (< 3.3) IVSd: 1.2 cm (0.6 - 1.1) LVIDd: 4.4 cm (3.9 - 5.3) LVPWd: 1.2 cm (0.6 - 1.1) IVSs: 1.8 cm LVIDs: 2.6 cm LVPWs: 1.7 cm LA Diam: 3.5 cm (2.7 - 3.8) LAESV Index (A-L): 21.56 ml/m Ao Diam: 2.8 cm (2.0 - 3.7) AV Cusp: 1.9 cm (1.5 - 2.6) MV EXCURSION: 15.228 mm (> 18.000) MV EF SLOPE: 126 mm/s (70 - 150) EPSS: 0.3 cm MV E Steve: 1.19 m/s MV DecT: 162 ms MV A Steve: 1.05 m/s MV E/A Ratio: 1.13 TAPSE: 20.48 mm FINDINGS -------- Sinus rhythm. This was a technically good study. The left ventricular size is normal. There is borderline concentric left ventricular hypertrophy. Overall left ventricular systolic function is normal with, an EF between 55 - 60 %. The diastolic filling pattern is normal for the age of the patient 11.54. The right ventricle is normal in size. Normal LA size by volume 22+/-6 ml/m2. The right atrial size is normal. Interatrial and interventricular septum intact. The aortic valve is trileaflet and appears structurally normal. The mitral valve is normal. There is trace to mild mitral regurgitation. The tricuspid valve appears structurally normal. Mild tricuspid regurgitation present. There is no pulmonic regurgitation present. The aortic root size is normal. Normal inferior vena cava with normal inspiratory collapse consistent with estimated right atrial pre ssure of 5 mmHg. There is no pericardial effusion. CONCLUSIONS -------- 1. Sinus rhythm. 2. This was a technically good study. 3. The left ventricular size is normal. 4. There is borderline concentric left ventricular hypertrophy. 5. Overall left ventricular systolic function is normal with, an EF between 55 - 60 %. 6. The diastolic filling pattern is normal for the age of the patient 11.54 7. Normal LA size by volume 22+/-6 ml/m2. 8. Interatrial and interventricular septum intact. 9. The aortic valve is trileaflet and appears structurally normal. 10. The mitral valve is normal. 11. There is trace to mild mitral regurgitation. 12. The tricuspid valve appears structurally normal. 13. Mild tricuspid regurgitation present. 14. There is no pulmonic regurgitation present. 15. The aortic root size is normal. 16. Normal inferior vena cava with normal inspiratory collapse consistent with estimated right atrial pressure of 5 mmHg. 17. There is no pericardial effusion. CAFE ASSISTANT: Cait Roblero RDCS
[2019-03-07 20:49] VITALS: RESP 16
[2019-03-07] MEDS: MELATONIN 3 MG TABLET PO SCH (21:46)
[2019-03-08] MEDS: metroNIDAZOLE 500 MG TAB PO SCH ×2 (01:28→08:06)
[2019-03-08 05:15] VITALS: BP 159/79; PULSE 68; TEMP 97.1
[2019-03-08] MEDS: SODIUM CHLORIDE 0.9% 1,000 ML IV SCH ×2 (05:25→08:06)
[2019-03-08] MEDS ORDERED: ONDANSETRON 4 MG/2 ML VIAL IVP PRN (07:34)
[2019-03-08] MEDS ORDERED: DICYCLOMINE 10 MG CAP PO PRN (07:36)
[2019-03-08 07:37] LABS: Basophils % (A) 0 %; Eosinophils # (A) 0.1 k/uL (0-0.7); Eosinophils % (A) 2 %; HCT 36.6 % (39.0-53.0); HGB 11.9 gm/dL (13.0-17.5); Lymphocytes # (A) 1.1 k/uL (1.0-4.8); Lymphocytes % (A) 12 %; MCH 28.7 pg (25.0-35.0); MCHC 32.6 g/dL (31.0-37.0); MCV 88.2 fL (80.0-100.0); Mean Platelet Volume 6.2; Monocytes # (A) 0.7 k/uL (0-1.0); Monocytes % (A) 8 %; Neutrophils # (A) 6.6 k/uL (1.3-7.7); Neutrophils % (A) 76 %; Platelet Count 343 k/uL (150-450); RBC 4.15 m/uL (4.30-5.90); RDW 13.9 % (11.5-15.5); WBC 8.6 k/uL (3.8-10.6)
--- NOTE | 2019-03-08 07:47 | P.CONS ---
History of Present Illness - Reason for Consult Consult date: 03/07/19 Duodenitis, nausea Requesting physician: Quinn Sheets - Chief Complaint Fever, cough - History of Present Illness 63-year-old male with a medical history significant for hypertension, COPD, tobacco abuse, previous thromboembolism on Eliquis therapy who presented to the hospital due to complaints of fevers and a dry cough. The patient initially was experiencing intermittent episodes of 5 fevers at home Prevacid been going over possibly one week and subsequently developed over the to 3 days prior to presentation and a dry cough. On admission to the hospital the patient was found to have findings consistent with right upper lobe peripheral pneumonia on chest x-ray is currently being treated with antibiotic therapy for suspected pneumonia. Evaluation also included a CT of the abdomen and pelvis with findings of duodenal wall thickening suggestive of duodenitis and multiple small bowel loops and large bowel loops which were fluid-filled consistent with diarrhea or ileus. The patient reports that he is still feeling sick. He reports that his stomach feels upset that he has had decreased oral intake and association with his symptoms. He denies any regular NSAID use at home but did take some Aleve prior to presentation. He denies any focal abdominal pain, any sick contacts, new medications, unusual foods. He did have testing for Clostridium difficile which was negative, WBC 10.5, hemoglobin 11.5, platelet count 261,000, total bilirubin 0.4, alkaline phosphatase 102, AST 60 diet and ALTs 68. Review of Systems REVIEW OF SYSTEMS: CONSTITUTIONAL: Denies any weight change, but this reports fevers and fatigue prior to presentation. Currently symptoms are somewhat improved.. CARDIOVASCULAR: Denies any chest pain, palpitations high or low blood pressures RESPIRATORY: Denies any shortness of breath, hemoptysis but does have a dry cough. GENITOURINARY: No dysuria or hematuria. MUSCULOSKELETAL: No weakness reported. SKIN: Denies any new rashes or lesions, jaundice or pallor. PSYCHIATRIC: Denies any depression or anxiety. NEUROLOGY: Denies headache, denies any new focal deficits. EARS/NOSE/THROAT: No recent hearing change, congestion, nasal discharge or sore throat. EYES: No pain in eyes, discharge or change in vision. GASTROINTESTINAL: As per HPI. Past Medical History Past Medical History: Deep Vein Thrombosis (DVT), Hypertension Additional Past Medical History / Comment(s): BORN W/Vision impairment (R) eye, DVT in the LLE 5 years ago, alcoholism, HTN, COPD, chronic back pain History of Any Multi-Drug Resistant Organisms: None Reported Past Surgical History: Hernia Repair Additional Past Surgical History / Comment(s): VAL[facility]INO inguinal hernia repair. Past Anesthesia/Blood Transfusion Reactions: No Reported Reaction Past Psychological History: No Psychological Hx Reported Smoking Status: Current every day smoker - Past Family History Mother Family Medical History: Myocardial Infarction ([place]) Father Family Medical History: Hypertension Medications and Allergies Home Medications Medication Instructions Recorded Confirmed Type amLODIPine BESYLATE/BENAZEPRIL 1 tab PO BID 06/29/17 03/04/19 History [amLODIPine BESYLATE/BENAZEPRIL 5-20 MG] Apixaban [Eliquis] 5 mg PO BID #60 tab 07/01/17 03/04/19 Rx Aspirin EC [Ecotrin] 325 mg PO DAILY PRN 03/04/19 03/04/19 History Gabapentin 600 mg PO TID 03/04/19 03/04/19 History Allergies Allergy/AdvReac Type Severity Reaction Status Date / Time No Known Allergies Allergy Verified 03/04/19 20:13 Physical Exam Vitals: Vital Signs Temp Pulse Resp BP Pulse Ox 03/07/19 10:10 60 18 142/71 03/07/19 07:17 98.3 F 56 L 18 152/72 93 L 03/07/19 04:52 98.5 F 82 16 135/56 95 03/06/19 21:00 98.6 F 67 16 148/80 99 Intake and Output 03/07/19 03/07/19 03/07/19 06:59 14:59 22:59 Other: Voiding Method Toilet # Voids 2 On physical examination, patient appears comfortable in no apparent distress. HEAD: Normocephalic, atraumatic. EYES: No scleral icterus. No conjunctival injection. MOUTH: No lesions, tongue midline. NECK: Trachea midline, no gross abnormalities. CHEST: Decreased air entry bilaterally. HEART: Regular rate and rhythm. ABDOMEN: Soft, thin. Bowel sounds are positive. No organomegaly. No guarding or rigidity. EXTREMITIES: No pedal edema. SKIN: No rashes, no jaundice. NEUROLOGIC: Alert and oriented x3. No focal deficits. Results CBC & Chem 7: 03/07/19 07:02 03/07/19 07:02 Labs: Abnormal Lab Results - Last 24 Hours (Table) 03/07/19 03/07/19 03/07/19 Range/Units 07:02 07:02 09:39 RBC 4.09 L (4.30-5.90) m/uL Hgb 11.5 L (13.0-17.5) gm/dL Hct 36.9 L (39.0-53.0) % Neutrophils # 7.9 H (1.3-7.7) k/uL Lymphocytes # 0.9 L (1.0-4.8) k/uL D-Dimer 4.24 H (<0.60) mg/L FEU Chloride 109 H (98-107) mmol/L Calcium 8.2 L (8.4-10.2) mg/dL AST 69 H (17-59) U/L Total Protein 5.2 L (6.3-8.2) g/dL Albumin 2.4 L (3.5-5.0) g/dL HDL Cholesterol (40-60) mg/dL 03/07/19 Range/Units 15:05 RBC (4.30-5.90) m/uL Hgb (13.0-17.5) gm/dL Hct (39.0-53.0) % Neutrophils # (1.3-7.7) k/uL Lymphocytes # (1.0-4.8) k/uL D-Dimer (<0.60) mg/L FEU Chloride (98-107) mmol/L Calcium (8.4-10.2) mg/dL AST (17-59) U/L Total Protein (6.3-8.2) g/dL Albumin (3.5-5.0) g/dL HDL Cholesterol 25 L (40-60) mg/dL Microbiology - Last 24 Hours (Table) 03/04/19 22:20 Blood Culture - Preliminary Blood No Growth after 48 hours 03/04/19 20:25 Blood Culture - Preliminary Blood No Growth after [address] scan - abdomen: report reviewed (Computed tomography scan of the abdomen with findings of duodenitis, and a fluid-filled loops of small and large bowel.) Assessment and Plan (1) Nausea Narrative/Plan: 63-year-old male with multiple medical comorbidities presenting with complaints of fever and dry cough found to have pneumonia for which she is currently receiving treatment. The patient reports persistent nausea, GI upset with computed tomography scan showing multiple fluid filled areas of small and large bowel as well as duodenitis. Symptoms are likely multifactorial and secondary to current antibiotic therapy, acute viral or bacterial infection for which she is currently receiving treatment for. At this time would continue symptomatic treatment. Current Visit: Yes Status: Acute Code(s): R11.0 - NAUSEA SNOMED Code(s): 249738940 (2) Duodenitis Current Visit: Yes Status: Acute Code(s): K29.80 - DUODENITIS WITHOUT BLEEDING SNOMED Code(s): 22240324 Plan: Supportive care Okay for diet Continue management per primary team of underlying pneumonia Continue Protonix twice daily Pepcid 40 mg daily at bedtime added Bentyl 4 times a day as needed for GI upset added No plans for endoscopic evaluation at this time, we'll continue to follow Continue current antibiotic therapy Thank you for allowing us to participate in the care of the patient we will continue
[2019-03-08] MEDS: IPRATROPIUM-ALBUTEROL 3 ML NEB INHALATION SCH ×3 (07:54→12:37)
[2019-03-08] MEDS: AZITHROMYCIN 500 MG TAB PO SCH (08:05)
[2019-03-08] MEDS: CEFDINIR 300 MG CAP PO SCH (08:05)
[2019-03-08] MEDS: GABAPENTIN 300 MG CAP PO SCH (08:05)
[2019-03-08] MEDS: APIXABAN 5 MG TAB PO SCH (08:06)
[2019-03-08] MEDS: guaiFENesin 600 MG TABLET.ER PO SCH (08:06)
[2019-03-08] MEDS: PANTOPRAZOLE 40 MG TABLET PO SCH (08:06)
[2019-03-08 08:26] LABS: ALT 56 U/L (21-72); AST 48 U/L (17-59); African American GFR (CKD) >90 (>60 ml/min/1.73 sqM); Albumin 2.3 g/dL (3.5-5.0); Alkaline Phosphatase 84 U/L (38-126); Anion Gap 7 mmol/L; Blood Urea Nitrogen 10 mg/dL (9-20); Calcium 8.2 mg/dL (8.4-10.2); Carbon Dioxide 23 mmol/L (22-30); Chloride 108 mmol/L (98-107); Glucose 96 mg/dL (74-99); Sodium 138 mmol/L (137-145); Total Bilirubin 0.4 mg/dL (0.2-1.3)
--- NOTE | 2019-03-08 10:07 | P.DS ---
Providers Date of admission: 03/05/19 15:43 Expected date of discharge: 03/08/19 Attending physician: Soham Thurman MD Consults: 03/05/19 11:07 Consult Physician Routine Consulting Provider: Marita Marshall Consult Reason/Comments: PRASANTH Do you want consulting provider notified?: Yes 03/07/19 09:06 Consult Physician Routine Consulting Provider: Daria Solano Consult Reason/Comments: duodenitis with nausea Do you want consulting provider notified?: Yes 03/07/19 09:26 Consult Physician Routine Consulting Provider: Kay Angeles Consult Reason/Comments: chest pain Do you want consulting provider notified?: Yes Primary care physician: Luis Fernando Lds Hospital Course: Discharge Diagnosis: Community-acquired pneumonia with sepsis Acute kidney injury Duodenitis with diarrhea Anemia, suspect delusional Moderate protein calorie malnutrition Hypertension History of DVT Tobacco abuse Hospital Course: Patient is a 63-year-old male past medical history of essential hypertension, COPD, tobacco abuse, and prior venous thromboembolism on [facility] who presented to the ER with complaints of fever and cough. In the ER he underwent an extensive evaluation. On arrival he was found to be septic with temperature of 102.8 and a pulse of 128. Initial chest x-ray showed right upper lobe acute infiltrate. CT of the abdomen and pelvis showed duodenal wall thickening suggestive of duodenitis as well as ileus. Incidentally there was significant cortical thinning and atrophy of 50% of the left kidney. Laboratory analysis showed BUN of 35, creatinine 1.87, and white blood cell count of 11.2. He was started on IV fluids, Rocephin, Zithromax, breathing treatments, and Flagyl. He was admitted for further monitoring. C. diff came back negative. Influenza was negative. Nephrology was consulted secondary to his acute kidney injury who felt like this is prerenal due to volume depletion and diarrhea as well as sepsis. They recommended holding his diuretics and continuing IV fluid resuscitation. He underwent an abdomen bladder ultrasound which showed atrophic left kidney. He developed some lower chest/upper abdominal discomfort on 03/07. He underwent a CTA of the chest which showed pneumonia in the right upper lobe and right lower lobe with mild pleural effusion. It was difficult to exclude subsegmental emboli. He was seen by cardiology and underwent echocardiogram which showed preserved ejection fraction at 50-55% with no significant valvular dysfunction. He was seen by GI who felt he likely had duodenitis and dyspepsia. He was started on twice-daily Protonix. Cardiology suggested outpatient stress test. On the morning of 03/08 he was feeling significantly improved. He has been tolerating his diet and his GI upsets resolved. He was requesting to be discharged home. He'll complete an outpatient course of Ceftin year and Zithromax for his pneumonia, he'll complete another 7 days of Flagyl for his duodenitis. He is to follow-up with Dr. wen in 1-[address] Hunter in 1-2 weeks for stress test. I did recommend following chest x-ray until clear with his history of smoking. Patient seen and examined at bedside. Breathing is back to baseline, up and ambulating without difficulty. No additional chest pain, nausea, or vomiting. Reports that his abdomen is much improved. His diarrhea has slowed. Vital signs reviewed and stable. General: non toxic, no distress, appears at stated age Derm: warm, dry Head: atraumatic, normocephalic, symmetric Eyes: EOMI, no lid lag, anicteric sclera Mouth: no lip lesion, mucus membranes moist Cardiovascular: S1S2 reg, no murmur, positive posterior tibial pulse bilateral, Lungs: Coarse breath sounds bilateral, no rhonchi, no rales , no accessory muscle use Abdominal: soft, nontender to palpation, no guarding, no appreciable organomegaly Ext: no gross muscle atrophy, no edema, no contractures Neuro: CN II-XI grossly intact, no focal neuro deficits Psych: Alert, oriented, appropriate affect A total of 35 minutes of time were spent preparing this complex discharge summary . Patient Condition at Discharge: Stable Plan - Discharge Summary New Discharge Prescriptions: New metroNIDAZOLE [Flagyl] 500 mg PO Q8HR #12 tab guaiFENesin [Mucinex] 600 mg PO Q12HR #0 tablet.er Cefdinir [Omnicef] 300 mg PO BID #4 cap Pantoprazole [Protonix] 40 mg PO AC-BID #60 tablet. Azithromycin [Zithromax] 500 mg PO DAILY #2 tab Continue amLODIPine BESYLATE/BENAZEPRIL [amLODIPine BESYLATE/BENAZEPRIL 5-20 MG] 1 tab PO BID Apixaban [Eliquis] 5 mg PO BID #60 tab Gabapentin 600 mg PO TID Aspirin EC [Ecotrin] 325 mg PO DAILY PRN PRN Reason: Pain Or Fever > 100.5 Discharge Medication List amLODIPine BESYLATE/BENAZEPRIL [amLODIPine BESYLATE/BENAZEPRIL 5-20 MG] 1 tab PO BID 06/29/17 [History] Apixaban [Eliquis] 5 mg PO BID #60 tab 07/01/17 [Rx] Aspirin EC [Ecotrin] 325 mg PO DAILY PRN 03/04/19 [History] Gabapentin 600 mg PO TID 03/04/19 [History] Azithromycin [Zithromax] 500 mg PO DAILY #2 tab 03/08/19 [Rx] Cefdinir [Omnicef] 300 mg PO BID #4 cap 03/08/19 [Rx] Pantoprazole [Protonix] 40 mg PO AC-BID #60 tablet.dr 03/08/19 [Rx] guaiFENesin [Mucinex] 600 mg PO Q12HR #0 tablet.er 03/08/19 [Rx] metroNIDAZOLE [Flagyl] 500 mg PO Q8HR #12 tab 03/08/19 [Rx] Follow up Appointment(s)/Referral(s): Luis Fernando Sneed MD [Primary Care Provider] - 1-2 days Sanju Solano MD [STAFF PHYSICIAN] - 2 Weeks Patient Instructions/Handouts: Community Acquired Pneumonia (DC) Activity/Diet/Wound Care/Special Instructions: Activity: As tolerated Diet: Heart healthy Special Instructions: Follow-up with Dr. Sneed's office next week. Recommend repeat chest x-ray to ensure clearance of pneumonia. Follow-up with Dr. Solano in 1-2 weeks for outpatient stress test Can use mucinex over the counter for congestion Discharge Disposition: HOME SELF-CARE
[2019-03-08] MEDS ORDERED: ONDANSETRON 4 MG/2 ML VIAL IVP SCH (12:00)
--- NOTE | 2019-03-08 13:02 | P.PN ---
Subjective Progress Note Date: 03/08/19 This is a pleasant 63-year-old male past medical history significant for hypertension, DVT a few years ago and then recent pulmonary embolism, chronic nicotine dependence, daily alcohol abuse and COPD. He denies personal history of coronary artery disease however his mother father and 2 brothers and one sister all had premature coronary artery disease. We have been asked to see him in consultation secondary to chest discomfort. Currently being treated for sepsis secondary to pneumonia and duodenitis, acute kidney injury and ileus. He is seen and examined sitting up in bed with a bucket near him due to persistent nausea and states he just recently vomited some clear liquid. He describes a burning type pain in the mid-sternal/epigastric region. The discomfort has been quite constant all morning with no aggravating or alleviating factors. No radiation to the arm, back, neck or jaw. He denies associated shortness of breath, dizziness or palpitations. He states over the previous one year he has noticed a significant decrease in his overall activity level and states he has noticed an increase in his exertional shortness of breath and intermittently has heaviness in his chest. Most recently he saw Dr. Solano in 2017 and underwent stress test and echocardiogram prior to hernia surgery. History of chest was negative for stress-induced ischemia on echocardiogram revealed normal LV systolic function with no wall motion abnormalities. EKG on admission shows sinus bradycardia with no ST or T wave abnormalities noted. Chest x-ray on admission reveals a right upper lobe peripheral pneumonia. CT of the abdomen and pelvis reveals duodenal wall thickening suggestive of duodenitis, multiple small and large bowel fluid levels consistent with ileus, no mechanical bowel obstruction, pleural thickening and infiltrate at the right lung base and cortical thickening and atrophy of the lower 50% of the left kidney. CTA was a limited study however no central pulmonary embolism noted, compatible with pneumonia and pleural effusion. Laboratory data reviewed, WBC 9.5 down from 11 .4 on admission, hemoglobin 11.5, platelets 261, d-dimer 4.24, sodium 137, potassium 4.0, creatinine 0.85, magnesium 1.9 and troponin negative 1. Blood pressure 142/71 heart rate 60 currently afebrile maintaining oxygen saturation on room air. Patient did have a temperature as high as 102.9 on admission. Current daily medications include aspirin 325 mg when necessary, amlodipine/benazepril 5/20 mg twice a day and Eliquis 5 mg twice a day. 03/07/19 echocardiogram to be done. Patient will be cleared by cardiology if echocardiogram is within normal limits. 03/08/19 echocardiogram revealed LV function of 55-60% with mild mitral regurgitation and mild tricuspid regurgitation.WBC 8.6, hemoglobin 11.9, hematocrit 36.6, sodium 138, potassium 4.0, BUN 10, creatinine 0.84. blood pressures recently well controlled on current regimen. patient was able to walk around the unit without significant shortness of breath.he denied any associated chest discomfort, palpitations, dizziness, or vertigo. Objective - Vital Signs Vital signs: Vital Signs Temp 97.1 F L 03/08/19 04:00 Pulse 68 03/08/19 04:00 Resp 16 03/08/19 04:00 BP 159/79 03/08/19 04:00 Pulse Ox 94 L 03/08/19 04:00 Intake & Output 03/07/19 03/08/19 03/08/19 18:59 06:59 18:59 Intake Total 650 Balance 650 Intake: Intake, IV Titration 650 Amount Promethazine Inj 6.25 mg 50 In Sodium Chloride 0.9% 50 ml @ 200 mls/hr IVPB Q6HR PRN Rx#:[id number] Sodium Chloride 0.9% 1, 600 000 ml @ 75 mls/hr IV . [id number] [facility] Rx#:[id number] Other: Voiding Method Toilet Toilet Toilet # Voids 2 - Exam GENERAL: Well-appearing, well-nourished and in no acute distress. NECK: Supple without JVD or thyromegaly. LUNGS: Breath sounds diminished to auscultation bilaterally. Respiration equal and unlabored. No wheezes, rales or rhonchi. HEART: Irregular rate and rhythm without murmurs, rubs or gallops. S1 and S2 heard. PVCs noted on telemetry EXTREMITIES: Normal range of motion, no edema. No clubbing or cyanosis. Per ipheral pulses intact and strong. - Labs CBC & Chem 7: 03/08/19 06:34 03/08/19 06:34 Labs: Abnormal Lab Results - Last 24 Hours (Table) 03/07/19 03/08/19 03/08/19 Range/Units 15:05 06:34 06:34 RBC 4.15 L (4.30-5.90) m/uL Hgb 11.9 L (13.0-17.5) gm/dL Hct 36.6 L (39.0-53.0) % Chloride 108 H (98-107) mmol/L Calcium 8.2 L (8.4-10.2) mg/dL Total Protein 5.0 L (6.3-8.2) g/dL Albumin 2.3 L (3.5-5.0) g/dL HDL Cholesterol 25 L (40-60) mg/dL Microbiology - Last 24 Hours (Table) 03/04/19 22:20 Blood Culture - Preliminary Blood No Growth after 72 hours 03/04/19 20:25 Blood Culture - Preliminary Blood No Growth after 72 hours Assessment and Plan Assessment: 1) Chest pain, atypical for angina. 2) Sepsis secondary to pneumonia and duodenitis 3) Leukocytosis, improved 4) History of pulmonary embolism on long-term anticoagulation 5) Hypertension 6) COPD, chronic shortness of breath 7) Chronic nicotine dependence 8) Daily alcohol abuse Plan: patient is cleared to be discharged from the cardiac standpoint. Recommend follow-up in office with Dr. Solano for outpatient stress testing.
[2019-03-08] MEDS ORDERED: FAMOTIDINE 20 MG TAB PO SCH (21:00)
== END 2019-03-08 12:55 | disposition home or self-care (01) | DRG 871 ==
LOC: EC 18:29 → 3NMEDONC 21:57 → OBSVTOIN 03-05 15:43 → 3NMEDONC 03-06 17:32
PROVIDERS: ADMIT Internal Medicine; ATTEND Internal Medicine
DX: A41.9 Sepsis, unspecified organism (principal); J18.1 Lobar pneumonia, unspecified organism; E44.0 Moderate protein-calorie malnutrition; E87.1 Hypo-osmolality and hyponatremia; J44.0 Chronic obstructive pulmonary disease with (acute) lower respiratory infection; K56.7 Ileus, unspecified; N17.9 Acute kidney failure, unspecified; E86.1 Hypovolemia; F10.10 Alcohol abuse, uncomplicated; F17.200 Nicotine dependence, unspecified, uncomplicated; H54.7 Unspecified visual loss; I10 Essential (primary) hypertension; K29.80 Duodenitis without bleeding; N26.1 Atrophy of kidney (terminal); Z79.01 Long term (current) use of anticoagulants; Z79.82 Long term (current) use of aspirin; Z79.899 Other long term (current) drug therapy; Z82.49 Family history of ischemic heart disease and other diseases of the circulatory system; Z86.711 Personal history of pulmonary embolism; Z86.718 Personal history of other venous thrombosis and embolism; G62.9 Polyneuropathy, unspecified; Z68.20 Body mass index [BMI] 20.0-20.9, adult
CPT/HCPCS: 36415; 71046; 71275; 74176; 76770; 80053; 80061; 81001; 83605; 83735; 84484; 85025; 85379; 87040; 87324; 87502; 93005; 93306; 94640; 94760; 96361; 96374; 99285

== ENCOUNTER → 2020-03-12 | Outpatient (CLI) | payer BC ==
--- NOTE | 2020-03-12 17:20 | XR ---
EXAMINATION TYPE: XR abdomen complete w decub DATE OF EXAM: 03/12/2020 COMPARISON: NONE HISTORY: 64-year-old male R10.84, left lower quadrant pain TECHNIQUE: Supine, upright, and left side down lateral decubitus views of the abdomen are obtained. FINDINGS: There is no evidence for pneumoperitoneum. No dilated small bowel or air-fluid levels. Possible punctate 3 mm calculus left mid abdomen. Possible 4 mm calcification right mid abdomen. Pelv ic phlebolith. There is scattered air and stool within the colon with mild stool burden. Degenerative disc disease L2-L3, L4-L5 and L5-S1. IMPRESSION: No evidence for free air or bowel obstruction. Possible small renal calculi measuring up to 4 mm.
== END | disposition home or self-care (01) ==
LOC: RAD 16:00
PROVIDERS: ATTEND Nurse Practitioner Adult Health
DX: R10.84 Generalized abdominal pain (principal)
CPT/HCPCS: 74021

== ENCOUNTER → 2020-08-16 | Outpatient (CLI) | payer BC ==
--- NOTE | 2020-08-17 09:37 | CT ---
EXAMINATION TYPE: CT abdomen pelvis wo con DATE OF EXAM: 08/16/2020 COMPARISON: 03/04/2019 INDICATION: LLQ pian, renal disease DLP: 238.1 mGycm, Automated exposure control for dose reduction was used. CONTRAST: 0 mL of Isovue 300. Study performed with Oral Contrast TECHNIQUE: Axial images were obtained from above the diaphragm to the pubic rami in the axial plane a t 5 mm thick sections. Reconstructed images are reviewed on the computer in the coronal plane. FINDINGS: Limited CT sections are obtained the lung bases. There is some streak opacity in the posterior right lung base can be related to scarring. CT ABDOMEN: Liver: Normal Spleen: Normal Pancreas: Normal Adrenal glands: The adrenal glands are normal. Gallbladder: Normal Kidneys: No masses are evident. There may be some mild left hydronephrosis. No obstructing etiology h owever is identified. A calcific type density in the left hemipelvis near the ureter was present 201 9 is likely a phlebolith. Series 3 image 50. No cysts are present. No renal stones are evident. Aorta: Vascular calcification is within the aorta. Inferior vena cava: Normal. CT PELVIS: Loops of bowel within the abdomen and pelvis are normal. There are loops of bowel which are incom pletely distended or lack oral contrast limiting their evaluation. Appendix: Not clearly identified. No suspicious inflammatory changes or dilated tubular structures ar e identified Urinary bladder: Normal. Genitourinary structures: Prostate is prominent. Osseous structures: No suspicious lytic or sclerotic lesions. IMPRESSIONS: 1. Mild left hydronephrosis of uncertain etiology. No obstructing ureteral stones are identified.
== END | disposition home or self-care (01) ==
LOC: RADCTMAIN 16:25
PROVIDERS: ATTEND Nurse Practitioner Adult Health
DX: N13.30 Unspecified hydronephrosis (principal)
CPT/HCPCS: 74176

== ENCOUNTER → 2020-09-09 | Outpatient (CLI) | payer BC ==
--- NOTE | 2020-09-09 21:24 | CT ---
EXAMINATION TYPE: CT urogram wo/w con DATE OF EXAM: 09/09/2020 COMPARISON: None HISTORY: Unspecified hydronephrosis. CT DLP: 798.10 mGycm CONTRAST: Performed and with IV Contrast, patient injected with 100 mL of Isovue 300. CT Urography was performed with unenhanced followed by enhanced images of the kidneys, ureters and ur inary bladder. Delayed images were obtained. 3d reconstruction was performed at a separate work sta tion. FINDINGS: KIDNEYS/BLADDER: Is atrophic change lower pole of the left kidney. No hydronephrosis. No nephrolith iasis. No distinct renal mass. Urinary bladder grossly unremarkable. LUNG BASES-: No visible nodule. No infiltrate. LIVER/GB: No calcified gallstones. No space occupying hepatic lesion. Biliary tree is of normal ca liber. PANCREAS: No inflammation. No distinct mass. SPLEEN: No splenic enlargement. No lesion seen. ADRENALS: No nodule. No thickening. BOWEL: Normal appendix. Normal bowel caliber. No inflammation. GENITAL ORGANS: No gross abnormality. LYMPH NODES: No greater than 1cm abdominal or pelvic lymph nodes are appreciated. AORTA: No significant abnormality. OSSEOUS STRUCTURES: No significant abnormality is seen. OTHER: No significant additional abnormality is seen. IMPRESSION: 1. Atrophic changes of the lower pole left kidney. No evidence of hydronephrosis.
== END | disposition home or self-care (01) ==
LOC: RADCTMAIN 15:30
PROVIDERS: ATTEND Urology
DX: N13.30 Unspecified hydronephrosis (principal)
CPT/HCPCS: 82565; 84520; 74178; 36415; 74400; Q9967

== ENCOUNTER 2020-10-07 16:25 | Emergency (ER) | payer BC ==
[2020-10-07 16:32] VITALS: BP 147/82; PULSE 97; RESP 18; TEMP 97.8
--- NOTE | 2020-10-07 18:57 | ED ---
General Adult HPI - General Chief complaint: Extremity Problem,Nontraumatic Stated complaint: Swollen feet Time Seen by Provider: 10/07/20 18:01 Source: patient Mode of arrival: ambulatory Limitations: no limitations - History of Present Illness Initial comments: 64-year-old male with a past medical history of DVT, hypertension, alcoholism, COPD presents to the emergency room for bilateral foot pain. Patient reports this has been ongoing for 6 months. States that he had a kidney stone 6 months ago started Flomax when all these symptoms started. Patient states his feet are red and swollen. States they're peeling. Patient states he has seen his primary care provider and a operational test mechanic for this. He has been started on oral steroids, topical steroids, antifungal creams, lotions without relief. Patient is being referred to a bomb squad commander. Patient states he is here today for answers. He wants someone to tell him exactly what is wrong with his feet.Patient has no other complaints at this time including shortness of breath, chest pain, abdominal pain, nausea or vomiting, headache, or visual changes. - Related Data Home Medications Medication Instructions Recorded Confirmed amLODIPine BESYLATE/BENAZEPRIL 1 tab PO BID 06/29/17 03/04/19 [amLODIPine BESYLATE/BENAZEPRIL 5-20 MG] Aspirin EC [Ecotrin] 325 mg PO DAILY PRN 03/04/19 03/04/19 Gabapentin 600 mg PO TID 03/04/19 03/04/19 Previous Rx's Medication Instructions Recorded Apixaban [Eliquis] 5 mg PO BID #60 tab 07/01/17 Azithromycin [Zithromax] 500 mg PO DAILY #2 tab 03/08/19 Cefdinir [Omnicef] 300 mg PO BID #4 cap 03/08/19 Omeprazole [PriLOSEC] 40 mg PO HS #30 capsule.dr 03/08/19 guaiFENesin [Mucinex] 600 mg PO Q12HR #0 tablet.er 03/08/19 metroNIDAZOLE [Flagyl] 500 mg PO Q8HR #12 tab 03/08/19 Cephalexin [Keflex] 500 mg PO Q6HR 10 Days #40 cap 10/07/20 Allergies Allergy/AdvReac Type Severity Reaction Status Date / Time No Known Allergies Allergy Verified 10/07/20 16:28 Review of Systems ROS Statement: Those systems with pertinent positive or pertinent negative responses have been documented in the HPI. ROS Other: All systems not noted in ROS Statement are negative. Past Medical History Past Medical History: Deep Vein Thrombosis (DVT), Hypertension Additional Past Medical History / Comment(s): BORN W/Vision impairment (R) eye, DVT in the LLE 5 years ago, alcoholism, HTN, COPD, chronic back pain History of Any Multi-Drug Resistant Organisms: None Reported Past Surgical History: Hernia Repair Additional Past Surgical History / Comment(s): VALENTINO inguinal hernia repair. Past Anesthesia/Blood Transfusion Reactions: No Reported Reaction Past Psychological History: No Psychological Hx Reported Smoking Status: Current every day smoker Past Alcohol Use History: Daily Past Drug Use History: None Reported - Past Family History Mother Family Medical History: Myocardial Infarction ([place]) Father Family Medical History: Hypertension General Exam Limitations: no limitations General appearance: alert, in no apparent distress Head exam: Present: atraumatic, normocephalic, normal inspection Eye exam: Present: normal appearance, PERRL, EOMI. Absent: scleral icterus, conjunctival injection, periorbital swelling ENT exam: Present: normal exam, mucous membranes moist Neck exam: Present: normal inspection. Absent: tenderness, meningismus, lymphadenopathy Respiratory exam: Present: normal lung sounds bilaterally. Absent: respiratory distress, wheezes, rales, rhonchi, stridor Cardiovascular Exam: Present: regular rate, normal rhythm, normal heart sounds. Absent: systolic murmur, diastolic murmur, rubs, gallop, clicks Extremities exam: Present: other (Patient has erythema and mild edema with scaling noted of the dorsal bilateral feet and ankles. Neg Nikolsky.) Course Vital Signs 10/07/20 16:28 Temperature 97.8 F Pulse Rate 97 Respiratory 18 Rate Blood Pressure 147/82 O2 Sat by Pulse 99 Oximetry Medical Decision Making - Medical Decision Making Pt has had several workups including a biopsy which showed an ALLERGIC response. At this point we will treat patient for a possible overlying cellulitis but he needs to follow-up with primary care in dermatology. I also recommended compression socks for the swelling. I recommended elevating feet as well. Patient will follow-up and return for any worsening symptoms. Disposition Clinical Impression: Erythema of foot Disposition: HOME SELF-CARE Condition: Good Instructions (If sedation given, give patient instructions): Acute Rash (ED) Additional Instructions: Please follow-up with your doctor in one to 2 days. Follow up with dermatology as well. Please return to the emergency room for any worsening symptoms. Prescriptions: Cephalexin [Keflex] 500 mg PO Q6HR 10 Days #40 cap Is patient prescribed a controlled substance at d/c from ED?: No Referrals: Jonnathan Alonso MD [STAFF PHYSICIAN] - 1-2 days Time of Disposition: 18:55
== END 2020-10-07 19:10 | disposition home or self-care (01) ==
LOC: EC 16:25
DX: L53.8 Other specified erythematous conditions (principal); J44.9 Chronic obstructive pulmonary disease, unspecified; F17.200 Nicotine dependence, unspecified, uncomplicated; I10 Essential (primary) hypertension; Z79.899 Other long term (current) drug therapy; Z79.2 Long term (current) use of antibiotics
CPT/HCPCS: 99282

== ENCOUNTER → 2020-12-15 | Outpatient (CLI) | payer BC | END | disposition home or self-care (01) | LOC: LABWHC1 12:00 | PROVIDERS: ATTEND Internal Medicine | DX: Z20.822 Contact with and (suspected) exposure to COVID-19 (principal); J06.9 Acute upper respiratory infection, unspecified | CPT/HCPCS: U0003; C9803; U0005 ==

== ENCOUNTER → 2022-02-20 | Outpatient (CLI) | payer BC ==
--- NOTE | 2022-02-21 06:31 | MR ---
EXAMINATION TYPE: MR lumbar spine wo con DATE OF EXAM: 02/20/2022 COMPARISON: CT abdomen and pelvis August 16, 2020 HISTORY: Low back pain into left leg, spondylosis, radiculopathy TECHNIQUE: Multiplanar, multisequence imaging of the lumbar spine is performed without IV contrast. FINDINGS: Sagittal images of the lumbar spine show vertebral body heights to appear satisfactory. The re is slight levoconvex scoliotic curvature centered upper lumbar spine with reactive dextroconvex sc oliosis centered at the lumbosacral junction redemonstrated. Alignment is somewhat straightened on sa gittal images. Multilevel disc desiccation and moderate to advanced disc space narrowing with relati ve sparing of the L1-L2 and to a lesser degree the L3-L4 level where there is mild disc space narrowi ng. The conus medullaris is normal in position and signal ending at T12-L1 disc space level. Overall heterogeneity of bone marrow signal intensity with Modic type I endplate changes at L2-L3 level and t ype III endplate changes at L4-L5 level noted. Axial images at T12-L1 level shows mild to moderate broad-based disc bulge effacing the anterior thec al sac, there is right paracentral disc protrusion component also noted. Mild facet arthropathy bilat erally is seen. Bilateral neural foramina are patent. Axial images at L1-L2 level shows mild broad-based disc bulge minimally effaces the anterior thecal s ac and mild facet arthropathy bilaterally. Patent bilateral neural foramina. Axial images at L2-L3 levels show posterior spur disc complex effacing the anterior thecal sac along with mild facet arthropathy bilaterally. There is [id number] bilateral anterior inferior neural foraminal narrowing. Axial images at L3-L4 level show moderate broad disc bulge effacing the anterior thecal sac along wit h mild/moderate facet arthropathy and ligamentum flavum hypertrophy. There is moderate bilateral neur al foraminal narrowing at this level identified. Axial images at L4-L5 level show more prominent posterior spur disc complex effacing the anterior the veda sac along with mild to moderate facet arthropathy and ligamentum flavum hypertrophy effacing the posterior lateral thecal sac. There is advanced left and moderate right-sided neural foraminal narrow ing. Axial images at the L5-S1 level shows tpxd-[id number]-deeamxge facet arthropathy bilaterally. There is mild b road disc bulge causing mild right and moderate left-sided neural foraminal narrowing. There is mild to moderate facet arthropathy bilaterally seen. Paraspinal muscle bulk is maintained. IMPRESSION: Straightening of lumbar spine with slight scoliotic curvature. There are multilevel degen erative changes identified as detailed above.
== END | disposition home or self-care (01) ==
LOC: RADMRIMAIN 19:19
PROVIDERS: ATTEND Physical Medicine & Rehabilitation
DX: M47.27 Other spondylosis with radiculopathy, lumbosacral region (principal); M41.26 Other idiopathic scoliosis, lumbar region
CPT/HCPCS: 72148

== ENCOUNTER → 2022-12-13 | Outpatient (CLI) | payer BC ==
--- NOTE | 2022-12-13 16:07 | US ---
EXAMINATION TYPE: US groin LT DATE OF EXAM: 12/13/2022 COMPARISON: abd pelv CT 09-08 CLINICAL INDICATION: Male, 67 years old with history of R10.2 PELVIC AND PERINEAL PAIN; prior left in guinal repair about 4-5 yrs ago, new left inguinal pain x 4 wks, especially when lying flat TECHNIQUE: Scanned over the pt's area of concern; valsalva maneuvers performed as well. There does appear to be a small 6mm break in the abdominal wall but no peristalsing bowel is seen above this def ect. FINDINGS/IMPRESSION: There is a suggested defect within the left inguinal wall measuring 6 cm without definitive protrusio n of bowel. Consider further evaluation with CT pelvis.
== END | disposition home or self-care (01) ==
LOC: RADUSWWP 15:17
PROVIDERS: ATTEND Family Medicine
DX: R10.2 Pelvic and perineal pain (principal)

== ENCOUNTER → 2023-05-24 | Day surgery (SDC) | payer BC ==
[2023-05-17 11:27] VITALS: BMI 21.7
[~2023-05-24] MED LIST: ACETAMINOPHEN TAB 500 MG TAB PO PRN; DEXAMETHASONE SOD PHOSPHATE 4 MG/ML 1 ML VIAL IVP ONE; FAMOTIDINE 20 MG/2 ML VIAL IVP ONE; GLYCOPYRROLATE 0.2 MG/ML 2 ML VIAL ONE; HEPARIN SODIUM,PORCINE 5,000 UNIT/ML 1 ML VIAL SQ PRN; HYDROmorphone 0.5 MG/0.5 ML SYRINGE IVP PRN; LACTATED RINGERS 1,000 ML IV ONE; LACTATED RINGERS 1,000 ML IV SCH; LIDOCAINE 1% INJ 10MG/ML (20 ML MDV) ONE; LIDOCAINE 1%-EPI 1:100,000 50 ML VIAL SQ ONE; MELOXICAM 7.5 MG TAB PO PRN; METOCLOPRAMIDE 5 MG/ML 2 ML VIAL IVP ONE; MIDAZOLAM 2 MG/2 ML VIAL IV PRN; MIDAZOLAM 2 MG/2 ML VIAL IVP ONE; ONDANSETRON 4 MG/2 ML VIAL IVP ONE; ONDANSETRON 4 MG/2 ML VIAL IVP PRN; PHENYLEPHRINE-0.9% NACL SYG 1,000 MCG/10 ML SYRINGE ONE; PROPOFOL 10 MG/ML 20 ML VIAL IV ONE; ROCURONIUM 10 MG/ML (5 ML VIAL) IV ONE; ROPIVACAINE 5 MG/ML 30 ML VIAL ONE; SCOPOLAMINE 1 MG/72 HR PATCH TRANSDERM ONE; SODIUM CHLORIDE 0.9% (PF) 10 ML VIAL ONE; SUCCINYLCHOLINE CHLORIDE 200 MG/10 ML VIAL IV ONE; TAMSULOSIN 0.4 MG CAP.ER.24H PO ONE; diphenhydrAMINE 50 MG/ML 1 ML VIAL IVP ONE; fentaNYL (PF) 50 MCG/ML 2 ML AMP ONE
--- NOTE | 2023-05-24 14:16 | P.GSHP ---
History of Present Illness H&P Date: 05/24/23 CHIEF COMPLAINT: Ventral hernia HISTORY OF PRESENT ILLNESS: The patient is a 67-year-old male presents with a history of swelling and pain along the abdomen from a hernia of the abdomen. Symptoms have been present for over 6 months. Now he presents for surgical intervention. PAST MEDICAL HISTORY: Please see list. PAST SURGICAL HISTORY: Please see list. MEDICATIONS: Please see list. ALLERGIES: Please see list. SOCIAL HISTORY: No illicit drug use FAMILY HISTORY: No reports of Crohn disease or ulcerative colitis. REVIEW OF ORGAN SYSTEMS: CONSTITUTIONAL: Denies any fever or chills. Denies recent weight loss or weight gain. HEENT: Denies any trouble with vision, hearing or nosebleeds. No difficulty swallowing. LYMPHATIC: The patient denies any lumps and bumps around the neck. ENDOCRINE: Denies any thyroid disorders. Denies any blood sugar glucose intolerance. RESPIRATORY: Denies pneumonia. Denies any troubles with breathing or dyspnea on exertion. CARDIOVASCULAR: Denies any chest pain, palpitations, or recent heart attacks. GASTROINTESTINAL: Denies heart burn, constipation or bright red blood per rectum. GENITOURINARY: Denies any blood in urine or increased urinary frequency. MUSCULOSKELETAL: Denies any back pain, stiffness, joint arthritis. NEUROLOGIC: Denies any numbness or tingling along the distal extremities. No seizure disorders or headaches. PSYCHIATRIC: Denies depression or suidical ideation. HEMATOLOGIC: Denies any abnormal bleeding or bruising. BREASTS: Denies any breast lumps, pain or nipple discharge. PHYSICAL EXAM: GENERAL: Well-developed pleasant male in no acute distress. HEENT: No scleral icterus. Extraocular movements grossly intact. Moist buccal mucosa. NECK: Supple without lymphadenopathy. CHEST: Unlabored respirations. Equal bilateral excursions. CARDIOVASCULAR: Regular rate and rhythm. Distal 2+ pulses. ABDOMEN: Soft, nondistended. Palpable defect of the abdomen. No peritoneal signs. MUSCULOSKELETAL: No clubbing, cyanosis, or edema. SKIN: Well perfused. PSYCH: Alert and oriented to self, place and time ASSESSMENT: 1. Ventral hernia PLAN: 1. Recommend proceeding with robotic ventral hernia repair with mesh. 2. Benefits and risks of surgical intervention was discussed including possibility of open technique. 3. DVT prophylaxis. 4. Antibiotic prophylaxis. 5. Non narcotic pain management including abdominal wall block described 6. Blood sugar glucose described. 7. Weight loss management described. Past Medical History Past Medical History: COPD, Deep Vein Thrombosis (DVT), Hypertension, Pulmonary Embolus (PE) Additional Past Medical History / Comment(s): ventral hernia,left inguinal,BORN W/Vision impairment (R) eye, PEs 2017 after hernia surgery, DVT in the LLE not sure dates approx 1999, chronic back pain History of Any Multi-Drug Resistant Organisms: None Reported Past Surgical History: Hernia Repair Additional Past Surgical History / Comment(s): VALENTINO inguinal hernia repair. Past Anesthesia/Blood Transfusion Reactions: No Reported Reaction Additional Past Anesthesia/Blood Transfusion Reaction / Comment(s): no hx blood transfusion Smoking Status: Former smoker - Past Family History Mother Family Medical History: Myocardial Infarction ([place]) Father Family Medical History: Hypertension Medications and Allergies Home Medications Medication Instructions Recorded Confirmed Type Apixaban [Eliquis] 5 mg PO BID #60 tab 07/01/17 05/17/23 Rx HYDROcodone/APAP 5-325MG [[place] 1 tab PO TID PRN 05/17/23 05/17/23 History 5-325] Losartan-Hctz 50-12.5 mg [Hyzaar 1 tab PO QAM 05/17/23 05/17/23 History 50-12.5] Allergies Allergy/AdvReac Type Severity Reaction Status Date / Time No Known Allergies Allergy Verified 05/17/23 11:00
[2023-05-24 15:00] LABS: HCT 42.8 % (39.0-53.0); MCH 29.7 pg (25.0-35.0); MCHC 32.7 g/dL (31.0-37.0); MCV 90.8 fL (80.0-100.0); Mean Platelet Volume 6.9; Platelet Count 227 k/uL (150-450); RBC 4.71 m/uL (4.30-5.90); RDW 13.5 % (11.5-15.5); WBC 7.2 k/uL (3.8-10.6)
--- NOTE | 2023-05-24 15:30 | P.ANPRN ---
Procedure Note - Anesthesia - Nerve Block Performed Bilateral Erector Spinae Single Time Out Performed: Yes Date of Procedure: 05/24/23 Procedure Start Time: 15:04 Procedure Stop Time: 15:15 Location of Patient: PreOp Indication: Acute Post-Operative Pain, Analgesia, Requested by Surgeon Sedation Type: Sedate with meaningful contact maintained Preparation: Sterile Prep Position: Sitting Catheter: None Needle Types: Pajunk Needle Gauge: 21 Ultrasound used to visualize needle placement: Yes Ultrasound used to observe medication spread: Yes Injectate: 0.5% Ropivacaine (see comment for volume) (Ropivacaine 15ml+[id number]-----pt each side) Blood Aspirated: No Pain Paresthesia on Injection Noted: No Resistance on Injection: Normal Image Stored and Saved: Yes Events: Uneventful and Well Tolerated
--- NOTE | 2023-05-24 16:22 | P.HPADDEND ---
H&P Addendum H&P Addendum Date: 05/24/23 Patient also has left upper quadrant abdominal pain for questionable hernia and left groin hernia. Inguinal including ventral hernia repair consented
[2023-05-24 17:35] VITALS: TEMP 97.4
--- NOTE | 2023-05-24 17:57 | P.OP ---
Date of Procedure: 05/24/23 Description of Procedure: Moderate pelvic adhesions left abdomen sigmoid colon to the left pelvis lysis of adhesions performed using scissors. No inguinal indirect femoral obturator hernia identified. Prior plug mesh hernia repair of the right groin with adhesions of following cecum. Liver unremarkable. Left upper quadrant with incarcerated preperitoneal fat dissected and excised. Docking along the right lateral abdominal wall SURGEON: PEYTON ROGERS MD PREOPERATIVE DIAGNOSES: 1. Left inguinal pain hernia 2. History of right inguinal hernia repair 3. Ventral hernia, left upper quadrant 4. Hypertensive heart disease 5. Chronic obstructive pulmonary disease 6. Chronic back pain 7. History of deep venous thrombosis 8. History of pulmonary embolism 9. Past tobacco abuse disorder POSTOPERATIVE DIAGNOSES: 1. Left inguinal pain 2. History of right inguinal hernia repair 3. Ventral hernia, left upper quadrant with incarcerated lipoma, initial 4. Hypertensive heart disease 5. Chronic obstructive pulmonary disease 6. Chronic back pain 7. History of deep venous thrombosis 8. History of pulmonary embolism 9. Past tobacco abuse disorder 10. Left pelvic adhesions 11. Sigmoid diverticulosis OPERATION: 1. Robotic-assisted da Lino Xi laparoscopic with extensive lysis of adhesions 2. Robotic-assisted da Lino Xi laparoscopic reduction and repair of initial ventral hernia, left upper quadrant 3. Excision of abdominal wall lipoma, 6 x 5 cm, subfascial ANESTHESIA: Gen., local, regional ESTIMATED BLOOD LOSS: 5 mL. SPECIMENS REMOVED: None. COMPLICATIONS: None. OPERATIVE FINDINGS: 1. Moderate pelvic adhesions left lower abdomen sigmoid colon to the left pelvis lysis of adhesions performed using scissors. 2. No inguinal indirect femoral obturator hernia identified along left groin. 3. Prior plug mesh hernia repair of the right groin with adhesions involving cecum. 4. Liver unremarkable. 5. Left upper quadrant with incarcerated abdominal wall ventral hernia involving preperitoneal fat dissected and excised. 6. Docking along the right lateral abdominal wall INDICATIONS: The patient is a 67-year-old male who presents with pre-existing right inguinal hernia repair and new pain and tenderness along the left groin with per patient's report inguinal hernia. He also complains of intermittent swelling and pain of the left upper quadrant for suspected hernia. Surgical intervention with diagnostic laparoscopy, ventral inguinal hernia appears were described. Informed consent was obtained. Robotic assisted laparoscopic approach was described. Benefits and risks of the procedure including but not limited to bleeding, infection, injury to the small bowel was described. Informed consent was obtained. DESCRIPTION OF PROCEDURE: Patient was marked in the preoperative area for areas of pain including left upper quadrant and left groin. Patient was brought to the operating room, placed in supine position. After general induction, the abdomen had been prepped and draped in standard sterile fashion. The robotic da Lino XI system was primed. After a timeout protocol was performed, the patient had been prepped and draped in standard sterile fashion including Ioban draping. A 5 mm 0 degrees laparoscopic trocar entry was performed along the left upper quadrant. The abdomen was insufflated to 15 mmHg pressure which was tolerated well. Next, three 8 mm robotic ports were placed along the right lateral abdominal wall. The camera 8-mm port was maintained along mid-lateral abdomen. Please note that the ports were placed at least 10 to 15 cm away from the target anatomy. Diagnostic laparoscopy was performed. The liver surface and liver edge was unremarkable for fatty liver disease. Adhesions along the right groin from prior hernia plug surgery was identified. Along the left groin, no inguinal, obturator, femoral hernia was identified. Moderate pelvic adhesions involving sigmoid colon to the pelvis was identified. The robot was docked along the right lateral abdomen. I had sat at the console. Instruments including graspers and scissors were interchanged by the assistant finance manager. Attention was brought to the left groin where peritoneal adhesions were taken down using combination of blunt dissection including scissors with minimal electrocautery. No enterotomies had occurred. Careful inspection demonstrated no hernias along the left groin. Attention was now brought to the left upper quadrant where incarcerated preperitoneal fat was identified. The preperitoneal fat was incarcerated into the abdominal wall. The preperitoneal fat was excised using blunt dissection including scissors. Hemostasis was checked. Subfascial lipoma 6 x 5 cm was excised. Lysis of adhesions under 1 hour was performed. The small bowel was viable.The robot was undocked. All pneumoperitoneum instruments were evacuated from the abdominal cavity. The incisions were reapproximated using 4-0 Monocryl in an interrupted subcuticular fashion. Please note along the trocar sites, local anesthetic was placed as a field block prior to insertion of all instruments. Exofin was applied to the skin. At the end of the procedure needle, sponge, and instrument count had been verified correct by the surgical asst. The patient was transferred to postanesthesia care unit in stable condition. Plan - Discharge Summary Discharge Rx Participant: No New Discharge Prescriptions: New Acetaminophen [Tylenol] 650 mg PO Q4H #30 tab Cyclobenzaprine [Flexeril] 10 mg PO TID #30 tab Tamsulosin [Flomax] 0.4 mg PO DAILY #5 cap Continue Apixaban [Eliquis] 5 mg PO BID #60 tab Losartan-Hctz 50-12.5 mg [Hyzaar 50-12.5] 1 tab PO QAM HYDROcodone/APAP 5-325MG [[place] 5-325] 1 tab PO TID PRN PRN Reason: Pain Discharge Medication List Apixaban [Eliquis] 5 mg PO BID #60 tab 07/01/17 [Rx] HYDROcodone/APAP 5-325MG [[place] 5-325] 1 tab PO TID PRN 05/17/23 [History] Losartan-Hctz 50-12.5 mg [Hyzaar 50-12.5] 1 tab PO QAM 05/17/23 [History] Acetaminophen [Tylenol] 650 mg PO Q4H #30 tab 05/24/23 [Rx] Cyclobenzaprine [Flexeril] 10 mg PO TID #30 tab 05/24/23 [Rx] Tamsulosin [Flomax] 0.4 mg PO DAILY #5 cap 05/24/23 [Rx] Follow up Appointment(s)/Referral(s): Peyton Rogers MD [STAFF PHYSICIAN] - 05/29/23 (TELEHEALTH; Dr. Rogers will call you this day to followup) Patient Instructions/Handouts: *Surgery [facility] - (Anesthesia) Discharge Instructions Outpatient Surgery, Lysis of Abdominal Adhesions (DC) Activity/Diet/Wound Care/Special Instructions: No lifting over 10 pounds in 2 weeks until Jun 07September shower. No bath tub soaks for two weeks until Jun 07 Diet as tolerated. Use Tylenol, simethicone scheduled for the next 24-48 hours for best pain relief. Use ice along incisions for today to prevent swelling. Discharge Disposition: HOME SELF-CARE
[2023-05-24 18:38] VITALS: BP 142/51; PULSE 61; RESP 14
[2023-05-24 18:42] LABS: ALT 18 U/L (4-49); AST 28 U/L (17-59); African American GFR (CKD) 72 (>60 ml/min/1.73 sqM); Albumin 3.6 g/dL (3.5-5.0); Alkaline Phosphatase 83 U/L (38-126); Anion Gap 10 mmol/L; Blood Urea Nitrogen 25 mg/dL (9-20); Calcium 9.1 mg/dL (8.4-10.2); Carbon Dioxide 22 mmol/L (22-30); Chloride 104 mmol/L (98-107); Glucose 161 mg/dL (74-99); Non-African American GFR(CKD) 63 (>60 ml/min/1.73 sqM); Potassium 4.1 mmol/L (3.5-5.1); Sodium 136 mmol/L (137-145); Total Bilirubin 0.5 mg/dL (0.2-1.3); Total Protein 6.5 g/dL (6.3-8.2)
== END | disposition home or self-care (01) ==
LOC: OR 14:03
PROVIDERS: ATTEND Surgery Plastic and Reconstructive Surgery
DX: K43.6 Other and unspecified ventral hernia with obstruction, without gangrene (principal); I11.9 Hypertensive heart disease without heart failure; J44.9 Chronic obstructive pulmonary disease, unspecified; K66.0 Peritoneal adhesions (postprocedural) (postinfection); G89.29 Other chronic pain; K57.30 Diverticulosis of large intestine without perforation or abscess without bleeding; Z79.01 Long term (current) use of anticoagulants; Z86.711 Personal history of pulmonary embolism; Z87.891 Personal history of nicotine dependence; Z79.899 Other long term (current) drug therapy; Z86.718 Personal history of other venous thrombosis and embolism
CPT/HCPCS: 64999; 80053; 85027; 88307; 49592; J2250; J0330; J1200; J1644; J1100; J2765; J0690; J2405; J2001; J3010; J3490; J2795; J2704; J2371

== ENCOUNTER → 2023-09-11 | Outpatient (CLI) | payer BC ==
--- NOTE | 2023-09-11 12:44 | FL ---
ESOPHOGRAM. HISTORY: Dysphagia Esophagram was performed per the air contrast technique. The patient swallowed barium and effervesce nt crystals without difficulty or delay. Esophageal peristalsis and motility appear to be within normal limits. There is no evidence for filling defect, mass or diverticulum. Small reducible hiatal hernia noted. Subsequently single contrast cervical esophagram was performed which fails demonstrate evidence for a spiration penetration or mass. IMPRESSION: Small reducible hiatal hernia noted.
== END | disposition home or self-care (01) ==
LOC: RADUSWWP 11:04
PROVIDERS: ATTEND Family Medicine
DX: K44.9 Diaphragmatic hernia without obstruction or gangrene (principal); R13.19 Other dysphagia
CPT/HCPCS: 74220

== ENCOUNTER → 2024-03-18 | Outpatient (CLI) | payer BC ==
--- NOTE | 2024-03-19 08:58 | US ---
EXAMINATION TYPE: US carotid duplex BILAT DATE OF EXAM: 03/18/2024 COMPARISON: CT soft tissue neck 07/19/2023 CLINICAL INDICATION: Male, 68 years old with history of I10 ESSENTIAL HYPERTENSION; HTN TECHNIQUE: Grayscale, color Doppler and spectral Doppler evaluation of the bilateral carotid systems and vertebral arteries. Indirect Doppler criteria was utilized. FINDINGS: EXAM MEASUREMENTS: RIGHT: Peak Systolic Velocity (PSV) cm/sec ----- Right CCA: 84.5 ----- Right ICA: 116 ----- Right ECA: 100 ICA/CCA ratio: 1.4 RIGHT: End Diastole cm/sec ----- Right CCA: 20.1 ----- Right ICA: 40.9 ----- Right ECA: 16.2 LEFT: Peak Systolic Velocity (PSV) cm/sec ----- Left CCA: 90.7 ----- Left ICA: 120 ----- Left ECA: 64.3 ICA/CCA ratio: 1.3 LEFT: End Diastole cm/sec ----- Left CCA: 19.5 ----- Left ICA: 46.2 ----- Left ECA: 9.8 VERTEBRALS (direction of flow): Right Vertebral: Antegrade Left Vertebral: Antegrade Rhythm: Normal GATHERING MACHINE FEEDER NOTES: No significant stenosis seen Moderate atherosclerotic plaque identified at the left carotid bifurcation. IMPRESSION: No ultrasound evidence for hemodynamically significant stenosis of the bilateral visualized carotid a rterial systems. Criteria for Assigning % of Stenosis / Diameter reduction (Estimation based on the indirect measurements of the internal carotid artery velocities (ICA PSV). 1. Normal (no stenosis)=ICA PSV < 125 cm/s: ratio < 2.0: ICA EDV<40 cm/s. 2. Less than 50% stenosis=ICA PSV < 125 cm/s: ratio < 2.0: ICA EDV<40 cm/s. 3. 50 to 69% stenosis=ICA PSV of 125 to 230 cm/s: ration 2.0 ? 4.0: ICA EDV 40-100 cm/s. 4. Greater than 70% stenosis to near occlusion= ICA PSV > 230 cm/s: ratio > 4.0: ICA EDV > 100 cm/s. 5. Near occlusion= ICA PSV velocities may be low or undetectable: variable ratio and ICA EDV. 6. Total occlusion=unable to detect flow. [facility], , 03/19/2024 8:56 AM
--- NOTE | 2024-03-19 09:17 | CA ---
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 67 - 155 / 56 - 104 cm??? LV Systolic Volume MOD BP 40.1 cm??? 22 - 58 / 19 - 49 cm??? LV Ejection Fraction MOD BP 62.2 % >= 55 % LV Cardiac Index MOD BP 2860.0 cm???/min???m??? LV Diastolic Volume MOD 4C 106.5 cm??? LV Systolic Volume MOD 4C 42.7 cm??? LV Ejection Fraction MOD 4C 59.9 % LV Cardiac Index MOD 4C 2762.1 cm???/min???m??? LV Diastolic Length 4C 8.2 cm LV Systolic Length 4C 7.0 cm LV Diastolic Volume MOD 2C 95.8 cm??? LV Systolic Volume MOD 2C 34.1 cm??? LV Ejection Fraction MOD 2C 64.4 % LV Cardiac Index MOD 2C 2669.6 cm???/min???m??? LV Diastolic Length 2C 7.4 cm LV Systolic Length 2C 6.3 cm LA Volume 32.1 cm??? 18 - 58 / 22 - 52 cm??? LA Volume Index 18.5 cm???/m??? 16 - 28 cm???/m??? Ascending Aorta Diameter 2.9 cm DOPPLER AV Peak Velocity 119.6 cm/s AV Peak Gradient 5.7 mmHg AV Mean Velocity 81.8 cm/s AV Mean Gradient 3.1 mmHg AV Velocity Time Integral 26.2 cm LVOT Peak Velocity 109.8 cm/s LVOT Peak Gradient 4.8 mmHg LVOT Velocity Time Integral 23.6 cm LVOT Stroke Volume 76.1 cm??? LVOT Stroke Volume Index 43.8 ml/m??? LVOT Cardiac Index 3292.8 cm???/min???m??? AV Area Cont Eq vti 2.9 cm??? AV Area Cont Eq pk 3.0 cm??? MV Area PHT 3.3 cm??? Mitral E Point Velocity 66.9 cm/s Mitral A Point Velocity 87.3 cm/s Mitral E to A Ratio 0.8 MV Deceleration Time 230.6 ms PV Peak Velocity 93.9 cm/s PV Peak Gradient 3.5 mmHg FINDINGS Left Ventricle Left ventricular ejection fraction is estimated at 55-60 %. Left ventricular cavity size normal. Left ventricular wall thickness normal. No obvious regional wall motion abnormalities. Right Ventricle Normal right ventricular size and function. Unable to estimate the right ventricular systolic pressure. Right Atrium Normal right atrial size. Left Atrium Normal left atrial size. Mitral Valve Mitral valve thickened. No evidence for mitral valve prolapse. No mitral stenosis. No mitral regurgitation. Aortic Valve Trileaflet aortic valve. No aortic valve stenosis or regurgitation. Tricuspid Valve Structurally normal tricuspid valve. No tricuspid stenosis, regurgitation or prolapse. Pulmonic Valve Pulmonic valve not well visualized. No pulmonic stenosis. No pulmonic regurgitation. Pericardium No pericardial effusion. Aorta Normal size aortic root and proximal ascending aorta. CONCLUSIONS Normal LV function Previewed by: Dr. Sanju Solano MD (Electronically Signed) Final Date: 19 March 2024 09:15
== END | disposition home or self-care (01) ==
LOC: RADUSWWP 15:50
PROVIDERS: ATTEND Family Medicine
CPT/HCPCS: 93306; 93880